=== PATIENT | female | born 1930 | race Two or more races ===

== ENCOUNTER 2016-11-26 10:14 | Emergency (ER) | payer MEDICARE, OTHER ==
[~2016-11-26] VITALS: Ht 162.6 cm; Wt 63.5 kg
--- NOTE | 2016-11-26 10:09 | Emergency Room Report ---
History of Present Illness General Source: Patient, EMS Present Illness HPI Patient is a 85-year-old female who presented after being found on the floor at her residential. Patient was noted to have a laceration to her face. History is limited by patient's poor historian. The patient noted be taking Coumadin. Allergies: Coded Allergies: No Known Allergies (Unverified , 11/26/16) Patient History Reviewed Nursing Documentation: PMH: Agreed, PSxH: Agreed Procedures Laceration/Wound Repair Laceration/Wound Repair : Wound Location: face Wound's Depth, Shape: superficial Wound Length (cm): 2 Wound Explored: clean Irrigated w/ Saline (ccs): 100 Anesthesia: Lidocaine w/ Epi Wound Debrided: minimal Wound Repaired With: sutures Suture Size/Type: 5:0 - gut suture Number of Sutures: 4 Patient Tolerated: Well Complications: None Medical Decision Making Diagnostic Impression: Primary Impression: Laceration Additional Impressions: Fall Dementia Cervical arthritis ER Course Patient presented after a fall.Differential diagnosis included was not limited to neck fracture, CVA, close head injury, syncopal episode, basilar ischemia. Because of complexity of patient's case laboratory testing and imaging studies were ordered. Laboratory testing showed coagulopathy consistent patient's anticoagulation. Patient was given lidocaine with epi for suture. The wound was closed with absorbable suture.Patient was discharged back to residential. Nursing staff were advised her return precautions. The patient was transferred home by ambulance. CT imaging of the cervical spine show degenerative changes without evident fracture. A CT of the head read by radiologist showed no acute evidence of intracranial hemorrhage or fracture. Laboratory Tests Test 11/26/16 11:15 White Blood Count 6.3 K/UL (4.8-10.8) Red Blood Count 4.29 M/UL (4.20-5.40) Hemoglobin 12.9 G/DL (12.0-16.0) Hematocrit 38.5 % (37.0-47.0) Mean Corpuscular Volume 90 FL (80-99) Mean Corpuscular Hemoglobin 30.1 PG (27.0-31.0) Mean Corpuscular Hemoglobin Concent 33.6 G/DL (32.0-36.0) Red Cell Distribution Width 10.6 % (11.6-14.8) L Platelet Count 240 K/UL (150-450) Mean Platelet Volume 8.4 FL (6.5-10.1) Neutrophils (%) (Auto) 55.8 % (45.0-75.0) Lymphocytes (%) (Auto) 34.7 % (20.0-45.0) Monocytes (%) (Auto) 7.6 % (1.0-10.0) Eosinophils (%) (Auto) 0.8 % (0.0-3.0) Basophils (%) (Auto) 1.1 % (0.0-2.0) Prothrombin Time 18.5 SEC (9.30-11.50) H Prothrombin Time INR 1.8 (0.9-1.1) H PTT 31 SEC (23-33) Sodium Level 134 mEQ/L (135-145) L Potassium Level 4.2 mEQ/L (3.4-4.9) Chloride Level 95 mEQ/L (98-107) L Carbon Dioxide Level 27 mEQ/L (20-30) Anion Gap 12 (5-15) Blood Urea Nitrogen 12 mg/dL (7-23) Creatinine 0.8 mg/dL (0.5-0.9) Estimate Glomerular Filtration Rate mL/min (>60) Glucose Level 99 mg/dL (74-106) Calcium Level 9.6 mg/dL (8.6-10.2) Total Bilirubin 0.4 mg/dL (0.0-1.2) Aspartate Amino Transferase (AST) 18 U/L (5-40) Alanine Aminotransferase (ALT) 10 U/L (3-33) Alkaline Phosphatase 105 U/L (35-104) H Total Protein 7.0 g/dL (6.6-8.7) Albumin 3.7 g/dL (3.5-5.2) Globulin 3.3 g/dL Albumin/Globulin Ratio 1.1 (1.0-2.7) Status: improved Disposition: XFER SNF Condition: Stable Roderick Calloway Nov 26, 2016 10:09
[2016-11-26 10:15] VITALS: BP 148/68
[2016-11-26] MEDS ORDERED: LEXAPRO10 MG ORAL (10:18)
[2016-11-26] MEDS ORDERED: LEVOTHYROXINE50 MCG ORAL (10:18)
[2016-11-26] MEDS ORDERED: COUMADIN6 MG ORAL (10:18)
[2016-11-26] MEDS ORDERED: MULTIVITAMINS1 EAC8 ORAL (10:18)
[2016-11-26] MEDS ORDERED: MIRALAX17 G2 ORAL (10:21)
[2016-11-26] MEDS ORDERED: PROHEAL ORAL (10:21)
[2016-11-26] MEDS ORDERED: NIFEDIPINE ER30 M2 ORAL (10:21)
[2016-11-26] MEDS ORDERED: TYLENOL650 MG/20. ORAL (10:23)
[2016-11-26] MEDS ORDERED: ZOLPIDEM TARTRAT5 MG ORAL (10:23)
[2016-11-26] MEDS ORDERED: Lidocaine 1% 10mg/ml/Epi 0.005mg/ml 30ml vial INJ ONE (10:27)
[2016-11-26] MEDS ORDERED: Bacitracin Oint UD TOPIC ONE ×2 (11:06→13:00)
[2016-11-26] MEDS ORDERED: TdaP Vaccine 0.5ml Syr IM ONE ×2 (11:07→13:00)
[2016-11-26 11:30] LABS: BASOPHILS % (AUTO) 1.1 % (0.0-2.0); EOSINOPHILS % (AUTO) 0.8 % (0.0-3.0); LYMPHOCYTES % (AUTO) 34.7 % (20.0-45.0); MEAN CORPUSCULAR HEMOGLOBIN 30.1 PG (27.0-31.0); MEAN CORPUSCULAR HGB CONC 33.6 G/DL (32.0-36.0); MEAN CORPUSCULAR VOLUME 90 FL (80-99); MEAN PLATELET VOLUME 8.4 FL (6.5-10.1); MONOCYTES % (AUTO) 7.6 % (1.0-10.0); NEUTROPHILS % (AUTO) 55.8 % (45.0-75.0); PLATELET COUNT 240 K/UL (150-450); RED BLOOD COUNT 4.29 M/UL (4.20-5.40); RED CELL DISTRIBUTION WIDTH 10.6 % (11.6-14.8); WHITE BLOOD COUNT 6.3 K/UL (4.8-10.8)
[2016-11-26 11:36] LABS: INR 1.8 (0.9-1.1); PROTHROMBIN TIME 18.5 SEC (9.30-11.50)
--- NOTE | 2016-11-26 11:36 | Diagnostic Imaging Report ---
Indications: Fall, head trauma, pain Technique: Continuous helical CT imaging of the brain was performed with nonionic exposure control on a Siemens sensation [address] scanner. Axial and coronal images were reconstructed at 5 mm slice thickness and interval. CTDI volume(s): 70, 13 mGy Total DLP: 1528 mGy-cm (Includes CT cervical spine) Findings: Comparison: None Confluent low attenuation is present in the bilateral periventricular deep cerebral white matter. Ventricles, cisterns, and sulci are diffusely prominent. No evidence of mass or hemorrhage, mass effect, midline shift, hydrocephalus, or increased intracranial pressure. Bone window images are unremarkable. Visualized paranasal sinuses and mastoid air cells are clear. IMPRESSION: No evidence of acute injury or other acute intracranial pathology . Chronic changes as described. Atrophy with ventriculomegaly. An element of normal pressure hydrocephalus should be considered. The CT scanner at [facility] is accredited by the [employer] and the scans are performed using protocols designed to limit radiation exposure to as low as reasonably achievable to attain images of sufficient resolution adequate for diagnostic evaluation.
[2016-11-26 11:40] LABS: ALANINE AMINOTRANSFERASE 10 U/L (3-33); ALBUMIN/GLOBULIN RATIO 1.1 (1.0-2.7); ANION GAP 12 (5-15); ASPARTATE AMINO TRANSFERASE 18 U/L (5-40); CALCIUM 9.6 mg/dL (8.6-10.2); CARBON DIOXIDE 27 mEQ/L (20-30); CHLORIDE 95 mEQ/L (98-107); CREATININE 0.8 mg/dL (0.5-0.9); HEMOLYSIS 4; POTASSIUM 4.2 mEQ/L (3.4-4.9); SODIUM 134 mEQ/L (135-145)
[2016-11-26] MEDS ORDERED: Lidocaine 1% 10mg/ml/EPI 0.01mg/ml 50ml INJ ONE (13:00)
[2016-11-26 13:04] VITALS: BP 156/89
--- NOTE | 2016-11-26 13:42 | Diagnostic Imaging Report ---
Indications: Fall, left forearm injury, pain Technique: 2 views left forearm. Findings: Comparison: None No fracture, dislocation, joint space widening , surrounding soft tissue swelling/foreign body/other abnormality, or other acute changes are identified. IMPRESSION: No evidence of acute injury to left forearm.
--- NOTE | 2016-11-26 13:43 | Diagnostic Imaging Report ---
Indications: Fall, neck injury, pain Technique: Continuous helical CT imaging of the cervical spine performed with automatic exposure was on a Siemens sensation [address] scanner. Axial, coronal and sagittal images reconstructed at 3 mm slice thicknesses. CTDI volume(s): 70, 13 mGy Total DLP: 1528 mGy-cm (Includes CT head) Findings: Comparison: None. Lordotic curvature is straightened. Several millimeter anterior subluxations of C3 on C4, C4 and C5, C6 and C7, and C7 on T1..Remainder of vertebral alignment is intact. No fracture, facet subluxation or dislocation, prevertebral soft tissue swelling, or other acute changes are demonstrated. Multilevel disc space narrowing with marginal osteophyte formation, facet sclerosis and hypertrophy. No obvious significant spinal stenosis results. Retro-odontoid soft tissues are prominent. Focal erosion aspect of odontoid tip. IMPRESSION: Straightening of cervical lordosis. This may be secondary to degenerative changes, positioning and/or muscular spasm. No other evidence of acute cervical injury. Multilevel degenerative spondylosis Multilevel grade 1 anterospondylolisthesis, likely chronic degenerative in nature. Lateral flexion and extension radiographs may be obtained to ascertain stability, as clinically indicated Odontoid/retro-odontoid findings described may represent underlying inflammatory arthritis The CT scanner at [facility] is accredited by the [employer] and the scans are performed using protocols designed to limit radiation exposure to as low as reasonably achievable to attain images of sufficient resolution adequate for diagnostic evaluation.
== END 2016-11-26 13:13 ==
LOC: EDBD 10:14 → EMR 10:43
DX: S01.81XA Laceration without foreign body of other part of head, initial encounter (principal); F03.90 Unspecified dementia, unspecified severity, without behavioral disturbance, psychotic disturbance, mood disturbance, and anxiety; M13.88 Other specified arthritis, other site; Z79.01 Long term (current) use of anticoagulants; Z23 Encounter for immunization; X58.XXXA Exposure to other specified factors, initial encounter; Y92.129 Unspecified place in nursing home as the place of occurrence of the external cause; Y99.8 Other external cause status
CPT/HCPCS: 36415; 70450; 72125; 80053; 85025; 85610; 85730; 90471; 90715

== ENCOUNTER 2017-06-27 13:58 | Emergency (ER) | payer MEDICARE, OTHER ==
[~2017-06-27] VITALS: Ht 154.9 cm; Wt 59.0 kg
[~2017-06-27 13:58] MED LIST: COUMADIN6 MG ORAL; LEVOTHYROXINE50 MCG ORAL; LEXAPRO10 MG ORAL; MIRALAX17 G2 ORAL; MULTIVITAMINS1 EAC8 ORAL; NIFEDIPINE ER30 M2 ORAL; PROHEAL ORAL; TYLENOL650 MG/20. ORAL; ZOLPIDEM TARTRAT5 MG ORAL
[2017-06-27 14:06] VITALS: BP 130/61
--- NOTE | 2017-06-27 14:35 | Emergency Room Report ---
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 SNF placed pressure dressing. Patient is not contributing to HPI - EMS states she is at baseline mental status. History of Dementia. No other info from patient, family, EMS, SNF. Allergies: Coded Allergies: No Known Allergies (Unverified , 11/26/16) Patient History Past Medical History: see triage record, old chart reviewed Past Surgical History: unable to obtain Pertinent Family History: unable to obtain Social History: Denies: smoking, alcohol use, drug use Last Menstrual Period: na Now: No Immunizations: UTD Reviewed Nursing Documentation: PMH: Agreed, PSxH: Agreed Nursing Documentation-PMH Past Medical History: No History, Except For Hx Hypertension: Yes Hx Gastrointestinal Problems: Yes - dysphagia History Of Psychiatric Problem: Yes - dementia Hx Neurological Problems: Yes - difficulty in walking, muscle weakness Review of Systems All Other Systems: negative except mentioned in HPI Physical Exam Vital Signs Date Time Temp Pulse Resp B/P (MAP) Pulse Ox O2 Delivery O2 Flow Rate FiO2 06/27/17 13:56 97.2 61 20 117/62 99 Room Air Sp02 EP Interpretation: reviewed, normal General Appearance: normal inspection, well appearing, no apparent distress, alert, GCS 15, non-toxic Head: normocephalic, atraumatic Eyes: bilateral eye PERRL, bilateral eye EOMI ENT: normal ENT inspection, hearing grossly normal, normal voice Neck: normal inspection, full range of motion, supple, no bony tend Respiratory: normal inspection, lungs clear, normal breath sounds, no respiratory distress, no retraction, no wheezing Cardiovascular #1: regular rate, rhythm, no edema Gastrointestinal: normal inspection, normal bowel sounds, non tender, soft, no guarding, no hernia Genitourinary: no CVA tenderness Musculoskeletal: normal inspection, back normal, normal range of motion, Yonatan' s Sign negative Neurologic: normal inspection, alert, oriented x3, responsive, water resource engineering specialist III-XII nml as tested, motor strength/tone normal, speech normal Psychiatric: normal inspection, judgement/insight normal, mood/affect normal Skin: normal inspection, normal color, no rash, other - Left anterior lower leg : Bandage removed. Minor skin tear. Steri strips in place. No active bleeding. No sign of infection. Medical Decision Making Diagnostic Impression: Primary Impression: Skin tear ER Course 86YOF sent from for eval of skin tear VSS. Afebrile Patient asymptomatic Wound examined, no active bleeding. No infection Well controlled by SNF placed bandage Patient has elevated INR d/t Coumadin - would be of patient's detriment to reverse INR now given that bleeding is controlled. Looks like she is on Coumadin for history of DVT/PE. Is more important for patient to maintain elevated INR to prevent PE than reverse it at this time Informed Dr Amador at 235pm that patient going back to No other acute issues in ED Last Vital Signs Date Time Temp Pulse Resp B/P (MAP) Pulse Ox O2 Delivery O2 Flow Rate FiO2 06/27/17 14:06 97.2 18 130/61 100 Room Air 06/27/17 13:56 61 Status: improved Disposition: ER Condition: Improved Patient Instructions: Skin Tear Care, [id number] Additional Instructions: - Wound/bleeding is controlled - Keep pressure bandage on - Dr Amador informed patient coming back to BRENNON HERNANDEZ M.D. Jun 27, 2017 14:35
[2017-06-27 15:05] VITALS: BP 139/73
== END 2017-06-27 15:05 ==
LOC: EDBD 13:58 → EMR 14:10
DX: S81.812A Laceration without foreign body, left lower leg, initial encounter (principal); X58.XXXA Exposure to other specified factors, initial encounter; Y92.129 Unspecified place in nursing home as the place of occurrence of the external cause; Z86.718 Personal history of other venous thrombosis and embolism; Z79.01 Long term (current) use of anticoagulants; Z86.711 Personal history of pulmonary embolism; I10 Essential (primary) hypertension; F03.90 Unspecified dementia, unspecified severity, without behavioral disturbance, psychotic disturbance, mood disturbance, and anxiety
CPT/HCPCS: 99282

== ENCOUNTER 2017-11-02 12:32 | Inpatient (IN) | payer OTHER, MEDICARE ==
[~2017-11-02] VITALS: Ht 162.6 cm; Wt 63.5 kg
[~2017-11-02 12:32] MED LIST changes: +AFEDITAB CR30 MG ORAL; +HYDROCHLOROTH12.5 MG ORAL; +NAPROXEN375 M2 ORAL; +TEMAZEPAM30 MG ORAL; +XANAX0.25 MG ORAL
[2017-11-02 14:09] VITALS: BP 145/66
--- NOTE | 2017-11-02 14:18 | Diagnostic Imaging Report ---
Indication: Reason For Exam: ALOC Technique: spiral acquisitions obtained through the brain. Angled axial and coronal 5 x 5 mm slices were reconstructed. No IV contrast utilized. Radiation dose was minimized using automated exposure control Total dose length product 1386.09 mGycm. CTDIvol(s) 70.38 mGy Comparison: 11/26/2016 FINDINGS: No acute hemorrhage or edema. No mass effect or midline shift. There is age-related enlargement of the ventricles and extra axial CSF spaces. There is periventricular deep white matter ischemic change. Normal marshall-white differentiation. Visualized orbits are unremarkable. Visualized sinuses are unremarkable. Intact calvarium. Findings are unchanged IMPRESSION: Chronic and age-related changes. Negative for acute intracranial bleed or mass effect The CT scanner at [facility] is accredited by the [employer] and the scans are performed using protocols designed to limit radiation exposure to as low as reasonably achievable to attain images of sufficient resolution adequate for diagnostic evaluation
[2017-11-02 15:00] LABS: BASOPHILS % (AUTO) 0.8 % (0.0-2.0); EOSINOPHILS % (AUTO) 1.8 % (0.0-3.0); HEMATOCRIT 36.2 % (37.0-47.0); HEMOGLOBIN 12.3 G/DL (12.0-16.0); MEAN CORPUSCULAR VOLUME 89 FL (80-99); MONOCYTES % (AUTO) 5.9 % (1.0-10.0); NEUTROPHILS % (AUTO) 55.6 % (45.0-75.0); PLATELET COUNT 301 K/UL (150-450); RED BLOOD COUNT 4.05 M/UL (4.20-5.40); RED CELL DISTRIBUTION WIDTH 10.9 % (11.6-14.8); WHITE BLOOD COUNT 6.7 K/UL (4.8-10.8)
[2017-11-02 15:11] LABS: ANION GAP 7 mmol/L (5-15); BLOOD UREA NITROGEN 9 mg/dL (7-18); CALCIUM 9.4 MG/DL (8.5-10.1); CARBON DIOXIDE 26 MMOL/L (21-32); CHLORIDE 102 MMOL/L (98-107); CREATININE 0.7 MG/DL (0.55-1.30); POTASSIUM 4.1 MMOL/L (3.5-5.1); SODIUM 135 MMOL/L (136-145)
[2017-11-02 15:17] LABS: INR 4.1 (0.9-1.1)
--- NOTE | 2017-11-02 15:20 | Emergency Room Report ---
History of Present Illness General Chief Complaint: Generalized Weakness Source: EMS Present Illness HPI Patient sent from SNF for decreased responsiveness and weakness. No noted fever. Eating less. Usually interacts with staff, not today. BP low with EMS. No dysphagia and HTN. Patient unable to give history. DVT on comadin. Allergies: Coded Allergies: No Known Allergies (Unverified , 11/26/16) Patient History Limited by: medical condition Past Medical History: see triage record, old chart reviewed Social History Narrative Rehab [place] Reviewed Nursing Documentation: PMH: Agreed, PSxH: Agreed Nursing Documentation-PMH Hx Hypertension: Yes Hx Gastrointestinal Problems: Yes - dysphagia Hx Neurological Problems: Yes - difficulty in walking, muscle weakness Review of Systems All Other Systems: limited Physical Exam Vital Signs Date Time Temp Pulse Resp B/P (MAP) Pulse Ox O2 Delivery O2 Flow Rate FiO2 11/02/17 12:32 96.8 56 20 129/76 95 Room Air Sp02 EP Interpretation: reviewed, normal General Appearance: no apparent distress, alert, Chronically Ill Head: normocephalic Eyes: bilateral eye normal inspection, bilateral eye PERRL ENT: moist mucus membranes Neck: supple Respiratory: lungs clear, normal breath sounds Cardiovascular #1: regular rate, rhythm Cardiovascular #2: 2+ radial (R) Gastrointestinal: normal inspection, non tender, no mass, non-distended, decreased bowel sounds Musculoskeletal: back normal, normal range of motion Neurologic: responsive, other - ebulic, moves all 4, sens intact all 4 Psychiatric: depressed affect Skin: normal inspection, warm/dry Medical Decision Making Diagnostic Impression: Primary Impression: Altered mental status Qualified Codes: R40.1 - Stupor Additional Impressions: Hypothyroidism Qualified Codes: E03.9 - Hypothyroidism, unspecified UTI (urinary tract infection) Qualified Codes: N30.00 - Acute cystitis without hematuria ER Course Patient presents with weakness and somewhat depressed sensorium. Complicated patient as unable to give hx. Ddx: AMI, occult infection, electrolyte abnormality, CVA amongst others. Evaluation with EKG, CT, CXR, labs. Treatment with hydration and cardiac monitoring. EKG without injury, CXR no infiltrate, labs with pyuria. Elevated TSH. Also anticoagulated. Antibiotics begun. Able to vocalize and responds to name (improved). Admitted med Dr. Amador. Laboratory Tests Test 11/02/17 14:40 11/02/17 15:50 White Blood Count 6.7 K/UL (4.8-10.8) Red Blood Count 4.05 M/UL (4.20-5.40) L Hemoglobin 12.3 G/DL (12.0-16.0) Hematocrit 36.2 % (37.0-47.0) L Mean Corpuscular Volume 89 FL (80-99) Mean Corpuscular Hemoglobin 30.4 PG (27.0-31.0) Mean Corpuscular Hemoglobin Concent 34.0 G/DL (32.0-36.0) Red Cell Distribution Width 10.9 % (11.6-14.8) L Platelet Count 301 K/UL (150-450) Mean Platelet Volume 7.7 FL (6.5-10.1) Neutrophils (%) (Auto) 55.6 % (45.0-75.0) Lymphocytes (%) (Auto) 36.0 % (20.0-45.0) Monocytes (%) (Auto) 5.9 % (1.0-10.0) Eosinophils (%) (Auto) 1.8 % (0.0-3.0) Basophils (%) (Auto) 0.8 % (0.0-2.0) Erythrocyte Sedimentation Rate 50 MM/HR (0-42) H Prothrombin Time 43.1 SEC (9.30-11.50) H Prothrombin Time INR 4.1 (0.9-1.1) H PTT 50 SEC (23-33) H Sodium Level 135 MMOL/L (136-145) L Potassium Level 4.1 MMOL/L (3.5-5.1) Chloride Level 102 MMOL/L (98-107) Carbon Dioxide Level 26 MMOL/L (21-32) Anion Gap 7 mmol/L (5-15) Blood Urea Nitrogen 9 mg/dL (7-18) Creatinine 0.7 MG/DL (0.55-1.30) Estimate Glomerular Filtration Rate mL/min (>60) Glucose Level 94 MG/DL (74-106) Lactic Acid Level 1.10 mmol/L (0.66-2.22) Calcium Level 9.4 MG/DL (8.5-10.1) Magnesium Level 1.8 MG/DL (1.8-2.4) Total Bilirubin 0.5 MG/DL (0.2-1.0) Aspartate Amino Transferase (AST) 26 U/L (15-37) Alanine Aminotransferase (ALT) 15 U/L (12-78) Alkaline Phosphatase 128 U/L (46-116) H Total Creatine Kinase 163 U/L (26-308) Troponin I 0.006 ng/mL (0.000-0.056) Pro-B-Type Natriuretic Peptide 646 pg/mL (0-125) H Total Protein 7.2 G/DL (6.4-8.2) Albumin 2.7 G/DL (3.4-5.0) L Globulin 4.5 g/dL Albumin/Globulin Ratio 0.6 (1.0-2.7) L Lipase 80 U/L (73-393) Thyroid Stimulating Hormone (TSH) 4.736 uiU/mL (0.358-3.740) Urine Color Pale yellow Urine Appearance Slightly cloudy Urine pH 8 (4.5-8.0) Urine Specific [place] 1.010 (1.005-1.035) Urine Protein Negative (NEGATIVE) Urine Glucose (UA) Negative (NEGATIVE) Urine Ketones Negative (NEGATIVE) Urine Occult Blood 3+ (NEGATIVE) H Urine Nitrite Positive (NEGATIVE) H Urine Bilirubin Negative (NEGATIVE) Urine Urobilinogen Normal MG/DL (0.0-1.0) Urine Leukocyte Esterase 3+ (NEGATIVE) H Urine RBC 5-10 /HPF (0 - 2) H Urine WBC 15-20 /HPF (0 - 2) H Urine Squamous Epithelial Cells Few /LPF (NONE/OCC) Urine Amorphous Sediment Few /LPF (NONE) H Urine Bacteria Many /HPF (NONE) H EKG Diagnostic Results Rate: normal Rhythm: other - a fib ST Segments: no acute changes Rhythm Strip Diag. Results EP Interpretation: yes Rhythm: no PVC's, no ectopy, other - a fib Chest X-Ray Diagnostic Results Chest X-Ray Diagnostic Results : Chest X-Ray Ordered: Yes # of Views/Limited/Complete: 1 View Indication: Other EP Interpretation: Yes Interpretation: no consolidation, no effusion, no pneumothorax Impression: No acute disease Electronically Signed by: Juan Ramon Elizondo MD CT/MRI/US Diagnostic Results CT/MRI/US Diagnostic Results : Imaging Test Ordered: head Impression age related changes Last Vital Signs Date Time Temp Pulse Resp B/P (MAP) Pulse Ox O2 Delivery O2 Flow Rate FiO2 11/02/17 23:53 97.3 65 20 177/77 97 Room Air Status: improved Disposition: ADMITTED INPATIENT Condition: Serious Referrals: DORA AMADOR (PCP) Juan aRmon Elizondo M.D. Nov 02, 2017 15:20
[2017-11-02 15:23] LABS: ALANINE AMINOTRANSFERASE 15 U/L (12-78); ALBUMIN 2.7 G/DL (3.4-5.0); ALBUMIN/GLOBULIN RATIO 0.6 (1.0-2.7); ALKALINE PHOSPHATASE 128 U/L (46-116); ASPARTATE AMINO TRANSFERASE 26 U/L (15-37); BILIRUBIN,TOTAL 0.5 MG/DL (0.2-1.0); CREATINE KINASE 163 U/L (26-308)
[2017-11-02 15:57] VITALS: BP 138/60
[2017-11-02 16:01] LABS: APPEARANCE,URINE SLIGHTLY CLOUDY; BILIRUBIN, URINE NEGATIVE (NEGATIVE); COLOR,URINE PALE YELLOW; GLUCOSE, URINE (UA) NEGATIVE (NEGATIVE); KETONES,URINE NEGATIVE (NEGATIVE); LEUKOCYTE ESTERASE ,URINE 3+ (NEGATIVE); NITRITE,URINE POSITIVE (NEGATIVE); PH,URINE 8 (4.5-8.0); PROTEIN,URINE NEGATIVE (NEGATIVE); UROBILINOGEN,URINE NORMAL MG/DL (0.0-1.0)
--- NOTE | 2017-11-02 16:11 | Diagnostic Imaging Report ---
Indication: Shortness of breath Technique: One view of the chest Comparison: none Findings: Body habitus somewhat limits evaluation. The heart is borderline enlarged. Thoracic aorta is tortuous and somewhat ectatic and calcified. The lungs and pleural spaces are clear. Impression: Borderline cardiomegaly. No definite acute process
[2017-11-02] MEDS ORDERED: cefTRIAXone 1 GM in D5W 55 ML IVPB ONE (16:30)
--- NOTE | 2017-11-02 17:50 | History and Physical ---
History of Present Illness General Date patient seen: Nov 02, 2017 Reason for Hospitalization: Generalized Weakness Present Illness HPI 86 year old female with hx of dementia, HTN, DVt on coumadin was sent from SNF for decreased responsiveness and weakness. Pt has been eating less than usual. Usually interacts with staff, not today. Pts BP low with EMS. No dysphagia and HTN. Patient unable to give history. Pt is awake, but doens't seem to understand english either. Allergies: Coded Allergies: No Known Allergies (Unverified , 11/26/16) Medication History Scheduled Alprazolam* (Xanax*), 0.25 MG ORAL DAILY, (Reported) Escitalopram Oxalate* (Lexapro*), 5 MG ORAL DAILY, (Reported) Escitalopram Oxalate* (Lexapro*), 5 MG ORAL DAILY, (Reported) Hydrochlorothiazide* (Hydrochlorothiazide*), 12.5 MG ORAL DAILY, (Reported) Levothyroxine Sodium* (Levothyroxine Sodium*), 50 MCG ORAL DAILY, (Reported) Levothyroxine Sodium* (Levothyroxine Sodium*), 50 MCG ORAL DAILY, (Reported) Multivitamin With Minerals (Multivitamins With Minerals*), 1 TAB ORAL DAILY, ( Reported) Naproxen* (Naproxen*), 375 MG ORAL TWICE A DAY, (Reported) Nifedipine Er* (Nifedipine Er*), 30 MG ORAL DAILY, (Reported) Nifedipine Er* (Nifedipine Er*), 30 MG ORAL DAILY, (Reported) Nifedipine* (Afeditab Cr*), 30 MG ORAL DAILY, (Reported) Warfarin Sod* (Coumadin*), 4 MG ORAL DAILY, (Reported) [Proheal Liquid], 30 ML ORAL TID, (Reported) Scheduled PRN Acetaminophen (Acetaminophen), 650 MG ORAL Q4HR PRN for Prn Headache/Temp > 101, (Reported) Polyethylene Glycol 3350* (Miralax*), 17 GM ORAL DAILY PRN for Constipation, ( Reported) Temazepam* (Temazepam*), 30 MG ORAL BEDTIME PRN for Insomnia, (Reported) Zolpidem Tartrate* (Zolpidem Tartrate*), 5 MG ORAL BEDTIME PRN for Insomnia, ( Reported) Patient History Healthcare decision maker Resuscitation status Advanced Directive on File Past Medical/Surgical History Past Medical/Surgical History: (1) Dementia (2) Hypothyroidism Review of Systems All Other Systems: negative except mentioned in HPI Physical Exam General Appearance: cachetic Lines, tubes and drains: peripheral HEENT: normocephalic, atraumatic Neck: non-tender, normal alignment Respiratory/Chest: chest wall non-tender, lungs clear Cardiovascular/Chest: normal peripheral pulses, normal rate Abdomen: normal bowel sounds, soft Genitourinary/Rectal: normal rectal exam, normal prostate exam Last 24 Hour Vital Signs Date Time Temp Pulse Resp B/P (MAP) Pulse Ox O2 Delivery O2 Flow Rate FiO2 11/02/17 15:57 97.6 72 16 138/60 99 Room Air 11/02/17 14:09 64 14 145/66 98 Room Air 11/02/17 12:32 96.8 56 20 129/76 95 Room Air Laboratory Tests Test 11/02/17 14:40 11/02/17 15:50 White Blood Count 6.7 K/UL (4.8-10.8) Red Blood Count 4.05 M/UL (4.20-5.40) L Hemoglobin 12.3 G/DL (12.0-16.0) Hematocrit 36.2 % (37.0-47.0) L Mean Corpuscular Volume 89 FL (80-99) Mean Corpuscular Hemoglobin 30.4 PG (27.0-31.0) Mean Corpuscular Hemoglobin Concent 34.0 G/DL (32.0-36.0) Red Cell Distribution Width 10.9 % (11.6-14.8) L Platelet Count 301 K/UL (150-450) Mean Platelet Volume 7.7 FL (6.5-10.1) Neutrophils (%) (Auto) 55.6 % (45.0-75.0) Lymphocytes (%) (Auto) 36.0 % (20.0-45.0) Monocytes (%) (Auto) 5.9 % (1.0-10.0) Eosinophils (%) (Auto) 1.8 % (0.0-3.0) Basophils (%) (Auto) 0.8 % (0.0-2.0) Erythrocyte Sedimentation Rate 50 MM/HR (0-42) H Prothrombin Time 43.1 SEC (9.30-11.50) H Prothromb Time International Ratio 4.1 (0.9-1.1) H Activated Partial Thromboplast Time 50 SEC (23-33) H Sodium Level 135 MMOL/L (136-145) L Potassium Level 4.1 MMOL/L (3.5-5.1) Chloride Level 102 MMOL/L (98-107) Carbon Dioxide Level 26 MMOL/L (21-32) Anion Gap 7 mmol/L (5-15) Blood Urea Nitrogen 9 mg/dL (7-18) Creatinine 0.7 MG/DL (0.55-1.30) Estimat Glomerular Filtration Rate mL/min (>60) Glucose Level 94 MG/DL (74-106) Lactic Acid Level 1.10 mmol/L (0.66-2.22) Calcium Level 9.4 MG/DL (8.5-10.1) Magnesium Level 1.8 MG/DL (1.8-2.4) Total Bilirubin 0.5 MG/DL (0.2-1.0) Aspartate Amino Transf (AST/SGOT) 26 U/L (15-37) Alanine Aminotransferase (ALT/SGPT) 15 U/L (12-78) Alkaline Phosphatase 128 U/L (46-116) H Total Creatine Kinase 163 U/L (26-308) Troponin I 0.006 ng/mL (0.000-0.056) Pro-B-Type Natriuretic Peptide 646 pg/mL (0-125) H Total Protein 7.2 G/DL (6.4-8.2) Albumin 2.7 G/DL (3.4-5.0) L Globulin 4.5 g/dL Albumin/Globulin Ratio 0.6 (1.0-2.7) L Lipase 80 U/L (73-393) Thyroid Stimulating Hormone (TSH) 4.736 uiU/mL (0.358-3.740) Urine Color Pale yellow Urine Appearance Slightly cloudy Urine pH 8 (4.5-8.0) Urine Specific [place] 1.010 (1.005-1.035) Urine Protein Negative (NEGATIVE) Urine Glucose (UA) Negative (NEGATIVE) Urine Ketones Negative (NEGATIVE) Urine Occult Blood 3+ (NEGATIVE) H Urine Nitrite Positive (NEGATIVE) H Urine Bilirubin Negative (NEGATIVE) Urine Urobilinogen Normal MG/DL (0.0-1.0) Urine Leukocyte Esterase 3+ (NEGATIVE) H Urine RBC 5-10 /HPF (0 - 2) H Urine WBC 15-20 /HPF (0 - 2) H Urine Squamous Epithelial Cells Few /LPF (NONE/OCC) Urine Amorphous Sediment Few /LPF (NONE) H Urine Bacteria Many /HPF (NONE) H Height (Feet): 5 Height (Inches): 4.00 Weight (Pounds): 150 Medications Current Medications Medications (Trade) Dose Ordered Sig/Kalen Route PRN Reason Start Time Stop Time Status Last Admin Dose Admin Sodium Chloride 1,000 ml @ 300 mls/hr Q3H20M IV 11/02/17 13:15 12/02/17 13:14 11/02/17 16:25 Assessment/Plan Problem List: (1) Altered mental status ICD Codes: R41.82 - Altered mental status, unspecified SNOMED: 700786847 Qualifiers: Qualified Codes: R40.1 - Stupor (2) UTI (urinary tract infection) ICD Codes: N39.0 - Urinary tract infection, site not specified SNOMED: 50549082 Qualifiers: Qualified Codes: N30.00 - Acute cystitis without hematuria (3) Dementia ICD Codes: F03.90 - Unspecified dementia without behavioral disturbance SNOMED: 52226337 (4) History of DVT (deep vein thrombosis) ICD Codes: Z86.718 - Personal history of other venous thrombosis and embolism SNOMED: 901159818 (5) Hypothyroidism ICD Codes: E03.9 - Hypothyroidism, unspecified SNOMED: [id number] Qualifiers: Qualified Codes: E03.9 - Hypothyroidism, unspecified Assessment/Plan iv abx swallow study check cultures f/u inr coumadin by pharmacy DORA VENTURA Nov 02, 2017 17:50
[2017-11-02 18:00] VITALS: BP 128/92
[2017-11-02] MEDS ORDERED: Morphine Sulfate 2mg/ml Inj IVP PRN (18:00)
[2017-11-02] MEDS: D5 1/2NS 1,000 ML IV SCH (18:28)
[2017-11-02 20:00] VITALS: BP 133/96
[2017-11-02] MEDS ORDERED: Zolpidem 5mg tab ORAL PRN (21:00)
[2017-11-02] MEDS ORDERED: Heparin 5000 units/ml inj SUBQ SCH (21:00)
[2017-11-02 23:53] VITALS: BP 177/77
[2017-11-03 04:00] VITALS: BP 133/71
--- NOTE | 2017-11-03 06:31 | Consultation ---
DATE OF CONSULTATION: 11/02/2017 HISTORY OF PRESENT ILLNESS: The patient is an 86-year-old female with a past medical history significant for underlying dementia, UTI, also confusion, acute encephalopathy, depression, anxiety, and hypothyroidism, who presented to the hospital due to generalized weakness. During the evaluation, the patient is alert, however, confused, nonverbal, has been agitated, and has been presenting with waxing and waning consciousness and is not able to be engaged during the evaluation. The patient is unable to understand, process, communicate, nor appreciate information given to the patient due to severe cognitive impairment. PAST PSYCHIATRIC HISTORY: Significant for depression, anxiety, and dementia. PAST MEDICAL HISTORY: As above. ALLERGIES: No known drug allergies. SUBSTANCE ABUSE HISTORY: No history of illicit drug use or alcohol. MENTAL STATUS EXAMINATION: The patient is alert and oriented x3 and is uncooperative and nonverbal. Mood is agitated. Affect is constricted, congruent with mood. Thought process is concrete. Thought content, no suicidal or homicidal ideation. ASSESSMENT: AXIS I: Depression, anxiety, and delirium due to general medical condition. PLAN: 1. We will continue the Lexapro 5 mg in the morning and Ativan p.r.n. 2. We will continue to follow and readjust the medications. Sebastian Steel M.D. DR: ELENA JOB#: [id number] CC:
[2017-11-03 07:08] LABS: BASOPHILS % (AUTO) 0.6 % (0.0-2.0); EOSINOPHILS % (AUTO) 1.6 % (0.0-3.0); HEMATOCRIT 32.8 % (37.0-47.0); HEMOGLOBIN 11.8 G/DL (12.0-16.0); LYMPHOCYTES % (AUTO) 27.1 % (20.0-45.0); MEAN CORPUSCULAR VOLUME 89 FL (80-99); MONOCYTES % (AUTO) 6.5 % (1.0-10.0); NEUTROPHILS % (AUTO) 64.2 % (45.0-75.0); PLATELET COUNT 287 K/UL (150-450); RED BLOOD COUNT 3.67 M/UL (4.20-5.40); RED CELL DISTRIBUTION WIDTH 10.9 % (11.6-14.8); WHITE BLOOD COUNT 5.9 K/UL (4.8-10.8)
[2017-11-03 07:31] LABS: ALANINE AMINOTRANSFERASE 15 U/L (12-78); ALBUMIN 2.5 G/DL (3.4-5.0); ALBUMIN/GLOBULIN RATIO 0.6 (1.0-2.7); ALKALINE PHOSPHATASE 115 U/L (46-116); ANION GAP 6 mmol/L (5-15); ASPARTATE AMINO TRANSFERASE 21 U/L (15-37); BILIRUBIN,TOTAL 0.5 MG/DL (0.2-1.0); BLOOD UREA NITROGEN 7 mg/dL (7-18); CALCIUM 8.9 MG/DL (8.5-10.1); CARBON DIOXIDE 27 MMOL/L (21-32); CHLORIDE 103 MMOL/L (98-107); CREATININE 0.7 MG/DL (0.55-1.30); POTASSIUM 3.8 MMOL/L (3.5-5.1); SODIUM 135 MMOL/L (136-145)
[2017-11-03 08:00] VITALS: BP 149/78
[2017-11-03 08:03] LABS: INR 3.4 (0.9-1.1)
[2017-11-03] MEDS ORDERED: Warfarin Sodium 3mg ORAL SCH (09:00)
[2017-11-03] MEDS ORDERED: Escitalopram Oxalate 5mg tab ORAL SCH (09:00)
[2017-11-03] MEDS: D5 1/2NS 1,000 ML IV SCH (12:04)
--- NOTE | 2017-11-03 12:40 | Neurology Progress Note ---
Objective Physical Exam Last Vital Signs Date Time Temp Pulse Resp B/P (MAP) Pulse Ox O2 Delivery O2 Flow Rate FiO2 11/03/17 08:43 65 150/70 11/03/17 08:00 98.0 18 97 11/03/17 04:00 Room Air Laboratory Tests Test 11/02/17 14:40 11/02/17 15:50 11/03/17 06:15 White Blood Count 6.7 K/UL (4.8-10.8) 5.9 K/UL (4.8-10.8) Red Blood Count 4.05 M/UL (4.20-5.40) L 3.67 M/UL (4.20-5.40) L Hemoglobin 12.3 G/DL (12.0-16.0) 11.8 G/DL (12.0-16.0) L Hematocrit 36.2 % (37.0-47.0) L 32.8 % (37.0-47.0) L Mean Corpuscular Volume 89 FL (80-99) 89 FL (80-99) Mean Corpuscular Hemoglobin 30.4 PG (27.0-31.0) 32.0 PG (27.0-31.0) H Mean Corpuscular Hemoglobin Concent 34.0 G/DL (32.0-36.0) 35.8 G/DL (32.0-36.0) Red Cell Distribution Width 10.9 % (11.6-14.8) L 10.9 % (11.6-14.8) L Platelet Count 301 K/UL (150-450) 287 K/UL (150-450) Mean Platelet Volume 7.7 FL (6.5-10.1) 7.7 FL (6.5-10.1) Neutrophils (%) (Auto) 55.6 % (45.0-75.0) 64.2 % (45.0-75.0) Lymphocytes (%) (Auto) 36.0 % (20.0-45.0) 27.1 % (20.0-45.0) Monocytes (%) (Auto) 5.9 % (1.0-10.0) 6.5 % (1.0-10.0) Eosinophils (%) (Auto) 1.8 % (0.0-3.0) 1.6 % (0.0-3.0) Basophils (%) (Auto) 0.8 % (0.0-2.0) 0.6 % (0.0-2.0) Erythrocyte Sedimentation Rate 50 MM/HR (0-42) H Prothrombin Time 43.1 SEC (9.30-11.50) H 36.2 SEC (9.30-11.50) H Prothromb Time International Ratio 4.1 (0.9-1.1) H 3.4 (0.9-1.1) H Activated Partial Thromboplast Time 50 SEC (23-33) H Sodium Level 135 MMOL/L (136-145) L 135 MMOL/L (136-145) L Potassium Level 4.1 MMOL/L (3.5-5.1) 3.8 MMOL/L (3.5-5.1) Chloride Level 102 MMOL/L (98-107) 103 MMOL/L (98-107) Carbon Dioxide Level 26 MMOL/L (21-32) 27 MMOL/L (21-32) Anion Gap 7 mmol/L (5-15) 6 mmol/L (5-15) Blood Urea Nitrogen 9 mg/dL (7-18) 7 mg/dL (7-18) Creatinine 0.7 MG/DL (0.55-1.30) 0.7 MG/DL (0.55-1.30) Estimat Glomerular Filtration Rate mL/min (>60) mL/min (>60) Glucose Level 94 MG/DL (74-106) 96 MG/DL (74-106) Lactic Acid Level 1.10 mmol/L (0.66-2.22) Calcium Level 9.4 MG/DL (8.5-10.1) 8.9 MG/DL (8.5-10.1) Magnesium Level 1.8 MG/DL (1.8-2.4) Total Bilirubin 0.5 MG/DL (0.2-1.0) 0.5 MG/DL (0.2-1.0) Aspartate Amino Transf (AST/SGOT) 26 U/L (15-37) 21 U/L (15-37) Alanine Aminotransferase (ALT/SGPT) 15 U/L (12-78) 15 U/L (12-78) Alkaline Phosphatase 128 U/L (46-116) H 115 U/L (46-116) Total Creatine Kinase 163 U/L (26-308) Troponin I 0.006 ng/mL (0.000-0.056) Pro-B-Type Natriuretic Peptide 646 pg/mL (0-125) H Total Protein 7.2 G/DL (6.4-8.2) 6.6 G/DL (6.4-8.2) Albumin 2.7 G/DL (3.4-5.0) L 2.5 G/DL (3.4-5.0) L Globulin 4.5 g/dL 4.1 g/dL Albumin/Globulin Ratio 0.6 (1.0-2.7) L 0.6 (1.0-2.7) L Lipase 80 U/L (73-393) Thyroid Stimulating Hormone (TSH) 4.736 uiU/mL (0.358-3.740) Urine Color Pale yellow Urine Appearance Slightly cloudy Urine pH 8 (4.5-8.0) Urine Specific [place] 1.010 (1.005-1.035) Urine Protein Negative (NEGATIVE) Urine Glucose (UA) Negative (NEGATIVE) Urine Ketones Negative (NEGATIVE) Urine Occult Blood 3+ (NEGATIVE) H Urine Nitrite Positive (NEGATIVE) H Urine Bilirubin Negative (NEGATIVE) Urine Urobilinogen Normal MG/DL (0.0-1.0) Urine Leukocyte Esterase 3+ (NEGATIVE) H Urine RBC 5-10 /HPF (0 - 2) H Urine WBC 15-20 /HPF (0 - 2) H Urine Squamous Epithelial Cells Few /LPF (NONE/OCC) Urine Amorphous Sediment Few /LPF (NONE) H Urine Bacteria Many /HPF (NONE) H Impression/Recommendations Problems: (1) Dementia arising in the senium and presenium (2) UTI (urinary tract infection) (3) Hypothyroidism Status: stable Recommendations #[id number] check need of Warfarin? avoid benzo consider DNR ZAIDA VILLAREAL Nov 03, 2017 12:40
[2017-11-03 16:44] VITALS: BP 118/71
--- NOTE | 2017-11-03 17:50 | Pulmonology Progress Note ---
Assessment/Plan Problems: (1) Altered mental status (2) UTI (urinary tract infection) (3) Dementia (4) Hypothyroidism (5) History of DVT (deep vein thrombosis) Assessment/Plan check cultures continue abx swallow study f/u labs Subjective Interval Events: awake, not communicating Allergies: Coded Allergies: No Known Allergies (Unverified , 11/26/16) Objective Last 24 Hour Vital Signs Date Time Temp Pulse Resp B/P (MAP) Pulse Ox O2 Delivery O2 Flow Rate FiO2 11/03/17 16:44 97.7 78 20 118/71 97 Room Air 11/03/17 08:43 65 150/70 11/03/17 08:00 98.0 64 18 149/78 97 11/03/17 04:00 98.0 68 20 133/71 97 Room Air 11/02/17 23:53 97.3 65 20 177/77 97 Room Air 11/02/17 20:00 96.8 88 20 133/96 97 Room Air 11/02/17 18:15 97.6 57 16 128/92 99 Room Air 11/02/17 18:00 57 16 128/92 99 Room Air Intake and Output 11/02/17 11/03/17 19:00 07:00 Intake Total 0 ml 600 ml Output Total 1400 ml Balance 0 ml -800 ml Intake Oral 0 ml IV Total 600 ml Output Urine Total 1400 ml Objective General Appearance: cachetic Lines, tubes and drains: peripheral HEENT: normocephalic, atraumatic Neck: non-tender, normal alignment Respiratory/Chest: chest wall non-tender, lungs clear Cardiovascular/Chest: normal peripheral pulses, normal rate Abdomen: normal bowel sounds, soft Genitourinary/Rectal: normal rectal exam, normal prostate exam General Appearance: cachetic Microbiology Date/Time Source Procedure Growth Status 11/02/17 15:50 Urine,Clean Catch Urine Culture - Preliminary Gram Negative Bacillus 1 Resulted Laboratory Tests 11/03/17 06:15: White Blood Count 5.9, Red Blood Count 3.67L, Hemoglobin 11.8L, Hematocrit 32.8L , Mean Corpuscular Volume 89, Mean Corpuscular Hemoglobin 32.0H, Mean Corpuscular Hemoglobin Concent 35.8, Red Cell Distribution Width 10.9L, Platelet Count 287, Mean Platelet Volume 7.7, Neutrophils (%) (Auto) 64.2, Lymphocytes (%) (Auto) 27.1, Monocytes (%) (Auto) 6.5, Eosinophils (%) (Auto) 1.6, Basophils (%) (Auto) 0.6, Prothrombin Time 36.2H, Prothromb Time International Ratio 3.4H, Sodium Level 135L, Potassium Level 3.8, Chloride Level 103, Carbon Dioxide Level 27, Anion Gap 6, Blood Urea Nitrogen 7, Creatinine 0.7, Estimat Glomerular Filtration Rate , Glucose Level 96, Calcium Level 8.9, Total Bilirubin 0.5, Aspartate Amino Transf (AST/SGOT) 21, Alanine Aminotransferase (ALT/SGPT) 15, Alkaline Phosphatase 115, Total Protein 6.6, Albumin 2.5L, Globulin 4.1, Albumin/Globulin Ratio 0.6L Current Medications Medications (Trade) Dose Ordered Sig/Klaen Route PRN Reason Start Time Stop Time Status Last Admin Dose Admin Clonidine HCl (Catapres Tab) 0.1 mg Q6H PRN ORAL For High Blood Pressure 11/03/17 07:15 12/03/17 07:14 Dextrose (Dextrose 50%) STAT PRN IV Hypoglycemia 11/02/17 18:00 12/02/17 17:59 Dextrose/Sodium Chloride 1,000 ml @ 50 mls/hr Q20H IV 11/02/17 18:00 12/02/17 17:59 11/02/17 18:28 Escitalopram Oxalate (Lexapro) 10 mg DAILY ORAL 11/04/17 09:00 12/04/17 08:59 Levothyroxine Sodium (Synthroid) 50 mcg ACBREAKFAST ORAL 11/03/17 06:30 12/03/17 06:29 11/03/17 06:07 Lorazepam (Ativan 2mg/ml 1ml) 0.5 mg Q4H PRN IV For Anxiety 11/02/17 18:00 11/09/17 17:59 Morphine Sulfate (Morphine Sulfate) 1 mg Q4H PRN IVP PAIN 4-10 11/02/17 18:00 11/09/17 17:59 Nifedipine (Procardia XL) 30 mg DAILY ORAL 11/03/17 09:00 12/03/17 08:59 11/03/17 08:43 Ondansetron HCl (Zofran) 4 mg Q6H PRN IVP Nausea & Vomiting 11/02/17 18:00 12/02/17 17:59 Warfarin Sodium (Coumadin per pharmacy) 1 ea DAILY PRN MISC . 11/02/17 18:15 12/02/17 18:14 Zolpidem Tartrate (Ambien) 5 mg HSPRN PRN ORAL Insomnia 11/02/17 21:00 11/09/17 20:59 DORA VENTURA Nov 03, 2017 17:50
[2017-11-03 20:00] VITALS: BP 127/73
--- NOTE | 2017-11-03 20:00 | Progress Note ---
DATE: 11/03/2017 SUBJECTIVE: The patient is presenting with weakness, , in bed, and has been staying out her medication. She can get agitated. Has poor insight and judgment. MENTAL STATUS EXAMINATION: The patient is alert and oriented x0. Mood is anxious. Affect is constricted. Congruent with mood. Thought process is concrete. Thought content, no suicidal or homicidal ideations. Delusional. Insight and judgment is impaired. ASSESSMENT: 1. Agitation. 2. Encephalopathy. PLAN: We will continue current medications. Sebastian Steel M.D. DR: ELENA JOB#: [id number] CC:
--- NOTE | 2017-11-03 20:15 | Consultation ---
DATE OF CONSULTATION: 11/03/2017 NEUROLOGICAL CONSULTATION REQUESTING PHYSICIAN: Jessica Amador M.D. HISTORY OF PRESENT ILLNESS: This 86-year-old female, resident of a nursing facility was brought to this hospital with evidence of decreased responsiveness, generalized weakness, reduced food intake, being unable to interact with staff, and evidence of hypotension noted by paramedics. The patient on arrival, vital signs were stable, blood pressure 129/76 and temperature 96.8 degrees. The patient has no evidence of apparent distress. She was alert, chronically ill appearing, able to move arms and legs. Her initial diagnostic studies included CAT scan of the brain without contrast this revealed chronic and age-related changes, but no evidence of acute abnormalities. Chest x-ray, borderline cardiomegaly, no evidence of acute process. Laboratory work included elevated sedimentation rate of 50, mild anemia, hemoglobin 11.9 and hematocrit 32.8. Urinalysis with 15-20 WBCs, 3+ leukocyte esterase and chemistry panel with elevated TSH 4.736, alkaline phosphatase is 128. Albumin down to 2.7 and sodium 135, otherwise unremarkable. Coagulation panel was significant coagulopathy, INR of 4.1 and PT of 43.1. Following admission, the patient remained on warfarin, Zofran, nifedipine, morphine p.r.n., clonazepam p.r.n., levothyroxine, Lexapro, clonidine and IV fluids. PAST MEDICAL HISTORY: According to the family who was present during this examination, the patient has evidence of severe dementia for at least last four years, she is nonverbal, does not recognize the family, does not interact. She is awake, at times aggressive, but she has a good appetite. She remained bedridden, tends to both legs flexed. Medical issues according to the record, the patient's medical issue also include degenerative joint disease, hypothyroidism, and history of DVT. MEDICATIONS: Her treatment prior to admission included Xanax daily, citalopram, hydrochlorothiazide, levothyroxine, Naprosyn, nifedipine, temazepam, warfarin and zolpidem. SOCIAL HISTORY: Resident of a rehabilitation facility. FAMILY HISTORY: Noncontributory. REVIEW OF SYSTEMS: Unable to obtain due to the patient's status, but according to the family who was currently presents, she appears " in baseline." PHYSICAL EXAMINATION: GENERAL: A well-developed and well-nourished, elderly female, awake. VITAL SIGNS: Stable, blood pressure 150/70, heart rate of 65, and temperature 98.0 degrees. HEENT: Head, normocephalic. There is no evidence of injuries. Eyes, ears, and throat are clear. NECK: Rigid in all directions. MUSCULOSKELETAL: Flexion contracture of lower extremities. Diffuse rigidity. Peripheral pulses 1+ symmetric. MENTAL STATUS: The patient is fully alert, has a good eye contact. She is nonverbal, does not follow instructions given in her [place] language and given by her family. CRANIAL NERVE II: Pupils both responding to light and accommodation. Extraocular movement full range. Fundi poorly visualized. CRANIAL NERVE V: Normal corneal responses. CRANIAL NERVE VII: No facial asymmetry. CRANIAL NERVE VIII: Grossly normal hearing. CRANIAL NERVE IX THROUGH XII: Tongue is in midline. Symmetric palate elevation. The patient reportedly able to eat without choking. MOTOR EXAMINATION: Diffuse rigidity. The patient had a strength 5/5 in both upper extremity and she was aggressive and times trying to hit using both arms. Lower extremities, flexor contracture of both knees, but able to move against resistance. Deep tendon reflexes 1+ bilaterally symmetric. Plantar response is mute. SENSORY EXAMINATION: Withdrawing to pin stimulation in all limbs. IMPRESSION: 1. Senile dementia, advanced. 2. Urinary tract infection. 3. Hypothyroidism. 4. Polypharmacy. 5. Over anticoagulation. RECOMMENDATION: 1. Hold on essential treatment. 2. Review necessity for warfarin. 3. She has enhanced risk of hemorrhagic complication. 4. Avoid use of benzodiazepine. 5. Continue with antipsychotic treatment as per Psychiatry. 6. Continue with supportive care. 7. Do Not Resuscitate as appropriate. Thank you for allowing me to see this interesting patient in neurological consultation. Galdino Swanson M.D. DR: FISH JOB#: [id number] CC:
[2017-11-04] VITALS (7 sets, daily range): BP systolic 120–165; BP diastolic 61–78
[2017-11-04 06:39] LABS: BASOPHILS % (AUTO) 0.8 % (0.0-2.0); EOSINOPHILS % (AUTO) 1.7 % (0.0-3.0); HEMATOCRIT 34.5 % (37.0-47.0); HEMOGLOBIN 12.1 G/DL (12.0-16.0); LYMPHOCYTES % (AUTO) 28.5 % (20.0-45.0); MEAN CORPUSCULAR VOLUME 89 FL (80-99); MONOCYTES % (AUTO) 7.5 % (1.0-10.0); NEUTROPHILS % (AUTO) 61.5 % (45.0-75.0); PLATELET COUNT 315 K/UL (150-450); RED BLOOD COUNT 3.87 M/UL (4.20-5.40); RED CELL DISTRIBUTION WIDTH 10.8 % (11.6-14.8); WHITE BLOOD COUNT 6.4 K/UL (4.8-10.8)
[2017-11-04 07:03] LABS: INR 2.8 (0.9-1.1)
[2017-11-04 07:06] LABS: ALANINE AMINOTRANSFERASE 14 U/L (12-78); ALBUMIN 2.6 G/DL (3.4-5.0); ALBUMIN/GLOBULIN RATIO 0.6 (1.0-2.7); ALKALINE PHOSPHATASE 116 U/L (46-116); ANION GAP 4 mmol/L (5-15); ASPARTATE AMINO TRANSFERASE 19 U/L (15-37); BILIRUBIN,TOTAL 0.7 MG/DL (0.2-1.0); BLOOD UREA NITROGEN 9 mg/dL (7-18); CALCIUM 9.4 MG/DL (8.5-10.1); CARBON DIOXIDE 26 MMOL/L (21-32); CHLORIDE 102 MMOL/L (98-107); CREATININE 0.7 MG/DL (0.55-1.30); PHOSPHORUS 2.6 MG/DL (2.5-4.9); POTASSIUM 3.7 MMOL/L (3.5-5.1); SODIUM 132 MMOL/L (136-145)
[2017-11-04] MEDS: LORazepam Inj 2mg/ml 1ml IV PRN (09:04)
[2017-11-04] MEDS: D5 1/2NS 1,000 ML IV SCH (09:14)
--- NOTE | 2017-11-04 16:12 | Pulmonology Progress Note ---
Assessment/Plan Problems: (1) Altered mental status (2) UTI (urinary tract infection) (3) Dementia (4) Hypothyroidism (5) History of DVT (deep vein thrombosis) Assessment/Plan check cultures continue abx swallow study not done, because pt is lethargic social service consult pt is appropiate for end of life and hospice care f/u labs Subjective ROS Limited/Unobtainable: No Interval Events: somnolent Allergies: Coded Allergies: No Known Allergies (Unverified , 11/26/16) Objective Last 24 Hour Vital Signs Date Time Temp Pulse Resp B/P (MAP) Pulse Ox O2 Delivery O2 Flow Rate FiO2 11/04/17 12:00 97.8 66 18 120/65 97 11/04/17 10:41 97.7 74 18 120/65 95 11/04/17 09:29 165/65 11/04/17 08:00 97.7 74 18 165/65 95 11/04/17 04:00 97.5 73 20 144/69 98 11/04/17 00:00 98.6 85 20 135/78 96 11/03/17 20:00 97.2 78 20 127/73 99 Room Air 11/03/17 16:44 97.7 78 20 118/71 97 Room Air Intake and Output 11/03/17 11/04/17 19:00 07:00 Intake Total 50 ml 350 ml Output Total 1100 ml 150 ml Balance -1050 ml 200 ml IV Total 50 ml 350 ml Output Urine Total 1100 ml 150 ml Objective General Appearance: cachetic Lines, tubes and drains: peripheral HEENT: normocephalic, atraumatic Neck: non-tender, normal alignment Respiratory/Chest: chest wall non-tender, lungs clear Cardiovascular/Chest: normal peripheral pulses, normal rate Abdomen: normal bowel sounds, soft Genitourinary/Rectal: normal rectal exam, normal prostate exam Microbiology Date/Time Source Procedure Growth Status 11/02/17 14:40 Blood Blood Culture - Preliminary NO GROWTH AFTER 24 HOURS Resulted 11/02/17 14:30 Blood Blood Culture - Preliminary NO GROWTH AFTER 24 HOURS Resulted 11/02/17 18:00 Nasal Nares Left MRSA Culture - Final Staphylococcus Aureus - Mrsa Complete 11/02/17 15:50 Urine,Clean Catch Urine Culture - Final Providencia Stuartii Complete 11/02/17 18:00 Rectum VRE Culture - Final 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 Complete Laboratory Tests 11/04/17 05:30: White Blood Count 6.4, Red Blood Count 3.87L, Hemoglobin 12.1, Hematocrit 34.5L , Mean Corpuscular Volume 89, Mean Corpuscular Hemoglobin 31.4H, Mean Corpuscular Hemoglobin Concent 35.2, Red Cell Distribution Width 10.8L, Platelet Count 315, Mean Platelet Volume 7.9, Neutrophils (%) (Auto) 61.5, Lymphocytes (%) (Auto) 28.5, Monocytes (%) (Auto) 7.5, Eosinophils (%) (Auto) 1.7, Basophils (%) (Auto) 0.8, Prothrombin Time 29.2H, Prothromb Time International Ratio 2.8H, Activated Partial Thromboplast Time 47H, Sodium Level 132L, Potassium Level 3.7, Chloride Level 102, Carbon Dioxide Level 26, Anion Gap 4L, Blood Urea Nitrogen 9, Creatinine 0.7, Estimat Glomerular Filtration Rate , Glucose Level 108H, Calcium Level 9.4, Phosphorus Level 2.6, Magnesium Level 1.6L, Total Bilirubin 0.7, Aspartate Amino Transf (AST/SGOT) 19, Alanine Aminotransferase (ALT/SGPT) 14, Alkaline Phosphatase 116, Total Protein 7.0, Albumin 2.6L, Globulin 4.4, Albumin/Globulin Ratio 0.6L Current Medications Medications (Trade) Dose Ordered Sig/Kalen Route PRN Reason Start Time Stop Time Status Last Admin Dose Admin Clonidine HCl (Catapres Tab) 0.1 mg Q6H PRN ORAL For High Blood Pressure 11/03/17 07:15 12/03/17 07:14 11/04/17 09:29 Dextrose (Dextrose 50%) STAT PRN IV Hypoglycemia 11/02/17 18:00 12/02/17 17:59 Dextrose/Sodium Chloride 1,000 ml @ 50 mls/hr Q20H IV 11/02/17 18:00 12/02/17 17:59 11/04/17 09:14 Escitalopram Oxalate (Lexapro) 10 mg DAILY ORAL 11/04/17 09:00 12/04/17 08:59 Levothyroxine Sodium (Synthroid) 50 mcg ACBREAKFAST ORAL 11/03/17 06:30 12/03/17 06:29 11/04/17 06:28 Lorazepam (Ativan 2mg/ml 1ml) 0.5 mg Q4H PRN IV For Anxiety 11/02/17 18:00 11/09/17 17:59 11/04/17 09:04 Morphine Sulfate (Morphine Sulfate) 1 mg Q4H PRN IVP PAIN 4-10 11/02/17 18:00 11/09/17 17:59 Nifedipine (Procardia XL) 30 mg DAILY ORAL 11/03/17 09:00 12/03/17 08:59 11/03/17 08:43 Ondansetron HCl (Zofran) 4 mg Q6H PRN IVP Nausea & Vomiting 11/02/17 18:00 12/02/17 17:59 Warfarin Sodium (Coumadin per pharmacy) 1 ea DAILY PRN MISC . 11/02/17 18:15 12/02/17 18:14 Warfarin Sodium (Coumadin) 1 mg COUMADIN ONCE ORAL 11/04/17 17:00 11/04/17 17:01 Zolpidem Tartrate (Ambien) 5 mg HSPRN PRN ORAL Insomnia 11/02/17 21:00 11/09/17 20:59 DORA VENTURA Nov 04, 2017 16:11
[2017-11-04] MEDS ORDERED: Warfarin Sodium 1mg ORAL ONE (17:00)
--- NOTE | 2017-11-04 19:21 | Wound Care Consultation ---
Wound Assessment Wound Assessment #1: Wound Number: 1 Wound Present on Admission: Yes New Wound: No Status Change of Wound: No Wound Location Body Site Modif: right Wound Location Body Site: toe - 1st Wound Type: pressure ulcer Julian Test: Does not Julian Pressure Ulcer Stage: Unstageable Wound Thickness: Full Thickness Wound Length: 2.5 Wound Width: 3.0 Wound Depth: utd Percent of Wound Bed Yellow/Wh: 50 Percent of Wound Black/Brown: 50 Wound Drainage Amount: None Wound Drainage Odor: None/Absent Tissue Surrounding Wound: Indurated Wound General Appearance: Reddened - yellow,maroon Wound Assessment #2: Wound Number: 2 Wound Present on Admission: Yes New Wound: No Status Change of Wound: No Wound Location Body Site Modif: right, lateral Wound Location Body Site: metatarsal head - 1st Wound Type: pressure ulcer Julian Test: Does not Julian Pressure Ulcer Stage: Deep Tissue Injury Wound Thickness: Full Thickness Wound Length: 1.0 Wound Width: 1.5 Wound Depth: utd Percent of Wound Purple/Maroon: 100 Wound Drainage Amount: None Wound Drainage Odor: None/Absent Tissue Surrounding Wound: Intact Wound General Appearance: Reddened - maroon Wound Comment #1 Right lateral and plantar 1st toe unstageable pressure ulcer #2 Right lateral 1st metatarsal head DTI pressure ulcer #3 Left thumb noted with dry scab Recommendation -Local wound care per protocol -Keep clean and dry -Optimize nutrition -Offload both heels -Heel protector on both heels -Turn and reposition -Low air loss mattress -Assess and f/u accordingly for any changes CLINT CANALES RN Nov 04, 2017 19:21
[2017-11-05] VITALS: BP 138/73
[2017-11-05 04:00] VITALS: BP 134/71
[2017-11-05] MEDS: D5 1/2NS 1,000 ML IV SCH (04:32)
--- NOTE | 2017-11-05 05:15 | Progress Note ---
DATE: 11/04/2017 SUBJECTIVE: The patient is the same. Minimally verbal. No behavioral issues. The patient is confused. MENTAL STATUS EXAMINATION: The patient is minimally verbal, alert, and anxious. Mood is neutral to anxious. Affect is flat. Thought process, there is a paucity of thought content. Thought content, no suicidal or homicidal ideation. Cognition is impaired. ASSESSMENT: 1. Generalized weakness. 2. Encephalopathy. PLAN: 1. We will continue the lorazepam. 2. We will continue the citalopram in the morning. 3. We will continue to follow and readjust the medications. Sebastian Steel M.D. DR: ELENA JOB#: [id number] CC:
[2017-11-05 08:00] VITALS: BP 145/65
[2017-11-05 08:24] LABS: INR 2.5 (0.9-1.1)
--- NOTE | 2017-11-05 11:46 | Pulmonology Progress Note ---
Assessment/Plan Problems: (1) Altered mental status (2) UTI (urinary tract infection) (3) Dementia (4) Hypothyroidism (5) History of DVT (deep vein thrombosis) Assessment/Plan check cultures continue abx swallow study not done, because pt is lethargic ( more awake now social service consult pt is appropiate for end of life and hospice care f/u labs social service to look for family members. Subjective ROS Limited/Unobtainable: No Interval Events: open eyes now Constitutional: Reports: no symptoms HEENT: Repors: no symptoms Respiratory: Reports: no symptoms Allergies: Coded Allergies: No Known Allergies (Unverified , 11/26/16) Objective Last 24 Hour Vital Signs Date Time Temp Pulse Resp B/P (MAP) Pulse Ox O2 Delivery O2 Flow Rate FiO2 11/05/17 09:53 63 145/65 11/05/17 09:32 Room Air 11/05/17 08:00 97.0 63 20 145/65 96 11/05/17 04:00 97.7 71 18 134/71 99 Room Air 11/05/17 00:00 97.8 67 18 138/73 97 Room Air 11/04/17 20:00 98.1 76 18 133/68 98 Room Air 11/04/17 16:00 97.8 68 17 126/61 11/04/17 12:00 97.8 66 18 120/65 97 Intake and Output 11/04/17 11/05/17 19:00 07:00 Intake Total 450 ml 600 ml Output Total 200 ml 300 ml Balance 250 ml 300 ml IV Total 450 ml 600 ml Output Urine Total 200 ml 300 ml Objective General Appearance: cachetic Lines, tubes and drains: peripheral HEENT: normocephalic, atraumatic Neck: non-tender, normal alignment Respiratory/Chest: chest wall non-tender, lungs clear Cardiovascular/Chest: normal peripheral pulses, normal rate Abdomen: normal bowel sounds, soft Genitourinary/Rectal: normal rectal exam, normal prostate exam Microbiology Date/Time Source Procedure Growth Status 11/02/17 14:40 Blood Blood Culture - Preliminary NO GROWTH AFTER 48 HOURS Resulted 11/02/17 14:30 Blood Blood Culture - Preliminary NO GROWTH AFTER 48 HOURS Resulted 11/02/17 18:00 Nasal Nares Left MRSA Culture - Final Staphylococcus Aureus - Mrsa Complete 11/02/17 15:50 Urine,Clean Catch Urine Culture - Final Providencia Stuartii Complete 11/02/17 18:00 Rectum VRE Culture - Final 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 Complete Laboratory Tests 11/05/17 07:15: Prothrombin Time 26.7H, Prothromb Time International Ratio 2.5H Current Medications Medications (Trade) Dose Ordered Sig/Kalen Route PRN Reason Start Time Stop Time Status Last Admin Dose Admin Clonidine HCl (Catapres Tab) 0.1 mg Q6H PRN ORAL For High Blood Pressure 11/03/17 07:15 12/03/17 07:14 11/04/17 09:29 Dextrose (Dextrose 50%) STAT PRN IV Hypoglycemia 11/02/17 18:00 12/02/17 17:59 Dextrose/Sodium Chloride 1,000 ml @ 50 mls/hr Q20H IV 11/02/17 18:00 12/02/17 17:59 11/05/17 04:32 Escitalopram Oxalate (Lexapro) 10 mg DAILY ORAL 11/04/17 09:00 12/04/17 08:59 11/05/17 09:53 Levothyroxine Sodium (Synthroid) 50 mcg ACBREAKFAST ORAL 11/03/17 06:30 12/03/17 06:29 11/05/17 06:18 Lorazepam (Ativan 2mg/ml 1ml) 0.5 mg Q4H PRN IV For Anxiety 11/02/17 18:00 11/09/17 17:59 11/04/17 09:04 Morphine Sulfate (Morphine Sulfate) 1 mg Q4H PRN IVP PAIN 4-10 11/02/17 18:00 11/09/17 17:59 Nifedipine (Procardia XL) 30 mg DAILY ORAL 11/03/17 09:00 12/03/17 08:59 11/05/17 09:53 Ondansetron HCl (Zofran) 4 mg Q6H PRN IVP Nausea & Vomiting 11/02/17 18:00 12/02/17 17:59 Warfarin Sodium (Coumadin per pharmacy) 1 ea DAILY PRN MISC . 11/02/17 18:15 12/02/17 18:14 Warfarin Sodium (Coumadin) 2 mg COUMADIN ONCE ORAL 11/05/17 17:00 11/05/17 17:01 Zolpidem Tartrate (Ambien) 5 mg HSPRN PRN ORAL Insomnia 11/02/17 21:00 11/09/17 20:59 DORA VENTURA Nov 05, 2017 11:46
[2017-11-05 12:00] VITALS: BP 124/68
[2017-11-05] MEDS: D5NS 1,000 ML IV SCH (12:25)
[2017-11-05] MEDS ORDERED: D5 1/2NS 1000ml IV ONE ×3 (15:01→16:11)
[2017-11-05 16:00] VITALS: BP 133/78
[2017-11-05] MEDS ORDERED: Warfarin Sodium 2mg ORAL ONE (17:00)
[2017-11-05 20:00] VITALS: BP 133/78
[2017-11-06] VITALS: BP 132/69
[2017-11-06 04:00] VITALS: BP 127/71
[2017-11-06 08:00] VITALS: BP 150/67
[2017-11-06] MEDS: D5NS 1,000 ML IV SCH (08:07)
[2017-11-06 09:12] LABS: BASOPHILS % (AUTO) 0.5 % (0.0-2.0); EOSINOPHILS % (AUTO) 3.2 % (0.0-3.0); HEMATOCRIT 33.3 % (37.0-47.0); HEMOGLOBIN 11.6 G/DL (12.0-16.0); MEAN CORPUSCULAR VOLUME 90 FL (80-99); MONOCYTES % (AUTO) 7.9 % (1.0-10.0); NEUTROPHILS % (AUTO) 55.4 % (45.0-75.0); PLATELET COUNT 260 K/UL (150-450); RED BLOOD COUNT 3.69 M/UL (4.20-5.40); RED CELL DISTRIBUTION WIDTH 10.9 % (11.6-14.8); WHITE BLOOD COUNT 5.4 K/UL (4.8-10.8)
[2017-11-06 09:13] LABS: INR 2.3 (0.9-1.1)
[2017-11-06 09:29] LABS: ALANINE AMINOTRANSFERASE 14 U/L (12-78); ALBUMIN 2.3 G/DL (3.4-5.0); ALBUMIN/GLOBULIN RATIO 0.6 (1.0-2.7); ALKALINE PHOSPHATASE 97 U/L (46-116); ANION GAP 8 mmol/L (5-15); ASPARTATE AMINO TRANSFERASE 25 U/L (15-37); BILIRUBIN,TOTAL 0.5 MG/DL (0.2-1.0); BLOOD UREA NITROGEN 6 mg/dL (7-18); CALCIUM 9.1 MG/DL (8.5-10.1); CARBON DIOXIDE 25 MMOL/L (21-32); CHLORIDE 105 MMOL/L (98-107); CREATININE 0.6 MG/DL (0.55-1.30); PHOSPHORUS 2.6 MG/DL (2.5-4.9); POTASSIUM 3.9 MMOL/L (3.5-5.1); SODIUM 138 MMOL/L (136-145)
--- NOTE | 2017-11-06 10:39 | Pulmonology Progress Note ---
Assessment/Plan Problems: (1) Altered mental status (2) UTI (urinary tract infection) (3) Dementia (4) Hypothyroidism (5) History of DVT (deep vein thrombosis) Assessment/Plan improving continue abx swallow study not done, because pt is lethargic ( more awake now social service consult pt is appropiate for end of life and hospice care f/u labs social service to look for family members.Social service note appreciated Subjective ROS Limited/Unobtainable: No Allergies: Coded Allergies: No Known Allergies (Unverified , 11/26/16) Objective Last 24 Hour Vital Signs Date Time Temp Pulse Resp B/P (MAP) Pulse Ox O2 Delivery O2 Flow Rate FiO2 11/06/17 08:07 72 127/71 11/06/17 08:00 97.3 57 18 150/67 97 Room Air 11/06/17 04:00 97.5 72 19 127/71 96 11/06/17 00:00 97.7 64 20 132/69 98 11/05/17 20:00 97.5 68 20 133/78 96 11/05/17 17:43 Room Air 11/05/17 16:00 97.3 66 20 133/78 97 11/05/17 12:01 Room Air 11/05/17 12:00 97.3 70 20 124/68 97 Intake and Output 11/05/17 11/06/17 19:00 07:00 Intake Total 670 ml 600 ml Output Total 600 ml Balance 70 ml 600 ml Intake Oral 120 ml IV Total 550 ml 600 ml Output Urine Total 600 ml # Voids 2 Objective General Appearance: cachetic Lines, tubes and drains: peripheral HEENT: normocephalic, atraumatic Neck: non-tender, normal alignment Respiratory/Chest: chest wall non-tender, lungs clear Cardiovascular/Chest: normal peripheral pulses, normal rate Abdomen: normal bowel sounds, soft Genitourinary/Rectal: normal rectal exam, normal prostate exam Laboratory Tests 11/06/17 06:49: White Blood Count 5.4, Red Blood Count 3.69L, Hemoglobin 11.6L, Hematocrit 33.3L , Mean Corpuscular Volume 90, Mean Corpuscular Hemoglobin 31.4H, Mean Corpuscular Hemoglobin Concent 34.9, Red Cell Distribution Width 10.9L, Platelet Count 260, Mean Platelet Volume 7.3, Neutrophils (%) (Auto) 55.4, Lymphocytes (%) (Auto) 33.0, Monocytes (%) (Auto) 7.9, Eosinophils (%) (Auto) 3.2H, Basophils (%) (Auto) 0.5, Prothrombin Time 24.7H, Prothromb Time International Ratio 2.3H, Activated Partial Thromboplast Time 43H, Sodium Level 138, Potassium Level 3.9, Chloride Level 105, Carbon Dioxide Level 25, Anion Gap 8, Blood Urea Nitrogen 6L, Creatinine 0.6, Estimat Glomerular Filtration Rate , Glucose Level 94, Calcium Level 9.1, Phosphorus Level 2.6, Magnesium Level 1.6L, Total Bilirubin 0.5, Aspartate Amino Transf (AST/SGOT) 25, Alanine Aminotransferase (ALT/SGPT) 14, Alkaline Phosphatase 97, Total Protein 6.4, Albumin 2.3L, Globulin 4.1, Albumin/Globulin Ratio 0.6L Current Medications Medications (Trade) Dose Ordered Sig/Kalen Route PRN Reason Start Time Stop Time Status Last Admin Dose Admin Clonidine HCl (Catapres Tab) 0.1 mg Q6H PRN ORAL For High Blood Pressure 11/03/17 07:15 12/03/17 07:14 11/04/17 09:29 Dextrose (Dextrose 50%) STAT PRN IV Hypoglycemia 11/02/17 18:00 12/02/17 17:59 Dextrose/Sodium Chloride 1,000 ml @ 50 mls/hr Q20H IV 11/05/17 12:30 12/05/17 12:29 11/06/17 08:07 Escitalopram Oxalate (Lexapro) 10 mg DAILY ORAL 11/04/17 09:00 12/04/17 08:59 11/06/17 08:08 Levothyroxine Sodium (Synthroid) 50 mcg ACBREAKFAST ORAL 11/03/17 06:30 12/03/17 06:29 11/06/17 06:05 Lorazepam (Ativan 2mg/ml 1ml) 0.5 mg Q4H PRN IV For Anxiety 11/02/17 18:00 11/09/17 17:59 11/04/17 09:04 Morphine Sulfate (Morphine Sulfate) 1 mg Q4H PRN IVP PAIN 4-10 11/02/17 18:00 11/09/17 17:59 Nifedipine (Procardia XL) 30 mg DAILY ORAL 11/03/17 09:00 12/03/17 08:59 11/06/17 08:07 Ondansetron HCl (Zofran) 4 mg Q6H PRN IVP Nausea & Vomiting 11/02/17 18:00 12/02/17 17:59 Warfarin Sodium (Coumadin per pharmacy) 1 ea DAILY PRN MISC . 11/02/17 18:15 12/02/17 18:14 Warfarin Sodium (Coumadin) 3.5 mg COUMADIN ONCE ORAL 11/06/17 17:00 11/06/17 17:01 Zolpidem Tartrate (Ambien) 5 mg HSPRN PRN ORAL Insomnia 11/02/17 21:00 11/09/17 20:59 DORA VENTURA Nov 06, 2017 10:39
[2017-11-06 11:59] VITALS: BP 106/48
[2017-11-06 15:48] VITALS: BP 128/65
[2017-11-06] MEDS ORDERED: WARFARIN SOD ORAL ONE ×2 (17:00)
[2017-11-06 20:00] VITALS: BP 133/71
[2017-11-06] MEDS: LORazepam Inj 2mg/ml 1ml IV PRN (21:50)
--- NOTE | 2017-11-06 23:34 | General Progress Note ---
Assessment/Plan Status: not improved, unchanged Subjective Date patient seen: Nov 06, 2017 Neurologic/Psychiatric: Reports: anxiety, depressed, emotional problems Allergies: Coded Allergies: No Known Allergies (Unverified , 11/26/16) Objective Last 24 Hour Vital Signs Date Time Temp Pulse Resp B/P (MAP) Pulse Ox O2 Delivery O2 Flow Rate FiO2 11/06/17 20:00 97.8 83 20 133/71 98 11/06/17 15:48 97.3 79 18 128/65 98 Room Air 11/06/17 11:59 97.3 78 18 106/48 94 Room Air 11/06/17 08:07 72 127/71 11/06/17 08:00 97.3 57 18 150/67 97 Room Air 11/06/17 04:00 97.5 72 19 127/71 96 11/06/17 00:00 97.7 64 20 132/69 98 Intake and Output 11/05/17 11/06/17 19:00 07:00 Intake Total 670 ml 600 ml Output Total 600 ml Balance 70 ml 600 ml Intake Oral 120 ml IV Total 550 ml 600 ml Output Urine Total 600 ml # Voids 2 Laboratory Tests 11/06/17 06:49: White Blood Count 5.4, Red Blood Count 3.69L, Hemoglobin 11.6L, Hematocrit 33.3L , Mean Corpuscular Volume 90, Mean Corpuscular Hemoglobin 31.4H, Mean Corpuscular Hemoglobin Concent 34.9, Red Cell Distribution Width 10.9L, Platelet Count 260, Mean Platelet Volume 7.3, Neutrophils (%) (Auto) 55.4, Lymphocytes (%) (Auto) 33.0, Monocytes (%) (Auto) 7.9, Eosinophils (%) (Auto) 3.2H, Basophils (%) (Auto) 0.5, Prothrombin Time 24.7H, Prothromb Time International Ratio 2.3H, Activated Partial Thromboplast Time 43H, Sodium Level 138, Potassium Level 3.9, Chloride Level 105, Carbon Dioxide Level 25, Anion Gap 8, Blood Urea Nitrogen 6L, Creatinine 0.6, Estimat Glomerular Filtration Rate , Glucose Level 94, Calcium Level 9.1, Phosphorus Level 2.6, Magnesium Level 1.6L, Total Bilirubin 0.5, Aspartate Amino Transf (AST/SGOT) 25, Alanine Aminotransferase (ALT/SGPT) 14, Alkaline Phosphatase 97, Total Protein 6.4, Albumin 2.3L, Globulin 4.1, Albumin/Globulin Ratio 0.6L Height (Feet): 5 Height (Inches): 4.00 Weight (Pounds): 140 General Appearance: no apparent distress, alert, confused, agitated Neurologic: disoriented, depressed affect Sebastian Steel M.D. Nov 06, 2017 23:34
--- NOTE | 2017-11-06 23:35 | Geriatric Progress Note ---
Assessment/Plan Assessment/Plan ASSESSMENT: 1. Generalized weakness. 2. Encephalopathy. PLAN: 1. We will continue the lorazepam. 2. We will continue the citalopram in the morning. 3. We will continue to follow and readjust the medications. Subjective Interval Events 11/05/17 Mood/Memory: Reports: prior hx, anxiety, depressed feelings, emotional problems Geriatric Geriatric Last 24 Hour Vital Signs Date Time Temp Pulse Resp B/P (MAP) Pulse Ox O2 Delivery O2 Flow Rate FiO2 11/06/17 20:00 97.8 83 20 133/71 98 11/06/17 15:48 97.3 79 18 128/65 98 Room Air 11/06/17 11:59 97.3 78 18 106/48 94 Room Air 11/06/17 08:07 72 127/71 11/06/17 08:00 97.3 57 18 150/67 97 Room Air 11/06/17 04:00 97.5 72 19 127/71 96 11/06/17 00:00 97.7 64 20 132/69 98 Intake and Output 11/05/17 11/06/17 19:00 07:00 Intake Total 670 ml 600 ml Output Total 600 ml Balance 70 ml 600 ml Intake Oral 120 ml IV Total 550 ml 600 ml Output Urine Total 600 ml # Voids 2 Laboratory Tests Test 11/06/17 06:49 White Blood Count 5.4 K/UL (4.8-10.8) Red Blood Count 3.69 M/UL (4.20-5.40) L Hemoglobin 11.6 G/DL (12.0-16.0) L Hematocrit 33.3 % (37.0-47.0) L Mean Corpuscular Volume 90 FL (80-99) Mean Corpuscular Hemoglobin 31.4 PG (27.0-31.0) H Mean Corpuscular Hemoglobin Concent 34.9 G/DL (32.0-36.0) Red Cell Distribution Width 10.9 % (11.6-14.8) L Platelet Count 260 K/UL (150-450) Mean Platelet Volume 7.3 FL (6.5-10.1) Neutrophils (%) (Auto) 55.4 % (45.0-75.0) Lymphocytes (%) (Auto) 33.0 % (20.0-45.0) Monocytes (%) (Auto) 7.9 % (1.0-10.0) Eosinophils (%) (Auto) 3.2 % (0.0-3.0) H Basophils (%) (Auto) 0.5 % (0.0-2.0) Prothrombin Time 24.7 SEC (9.30-11.50) H Prothromb Time International Ratio 2.3 (0.9-1.1) H Activated Partial Thromboplast Time 43 SEC (23-33) H Sodium Level 138 MMOL/L (136-145) Potassium Level 3.9 MMOL/L (3.5-5.1) Chloride Level 105 MMOL/L (98-107) Carbon Dioxide Level 25 MMOL/L (21-32) Anion Gap 8 mmol/L (5-15) Blood Urea Nitrogen 6 mg/dL (7-18) L Creatinine 0.6 MG/DL (0.55-1.30) Estimat Glomerular Filtration Rate mL/min (>60) Glucose Level 94 MG/DL (74-106) Calcium Level 9.1 MG/DL (8.5-10.1) Phosphorus Level 2.6 MG/DL (2.5-4.9) Magnesium Level 1.6 MG/DL (1.8-2.4) L Total Bilirubin 0.5 MG/DL (0.2-1.0) Aspartate Amino Transf (AST/SGOT) 25 U/L (15-37) Alanine Aminotransferase (ALT/SGPT) 14 U/L (12-78) Alkaline Phosphatase 97 U/L (46-116) Total Protein 6.4 G/DL (6.4-8.2) Albumin 2.3 G/DL (3.4-5.0) L Globulin 4.1 g/dL Albumin/Globulin Ratio 0.6 (1.0-2.7) L Current Medications Medications (Trade) Dose Ordered Sig/Kalen Route PRN Reason Start Time Stop Time Status Last Admin Dose Admin Clonidine HCl (Catapres Tab) 0.1 mg Q6H PRN ORAL For High Blood Pressure 11/03/17 07:15 12/03/17 07:14 11/04/17 09:29 Dextrose (Dextrose 50%) STAT PRN IV Hypoglycemia 11/02/17 18:00 12/02/17 17:59 Dextrose/Sodium Chloride 1,000 ml @ 50 mls/hr Q20H IV 11/05/17 12:30 12/05/17 12:29 11/06/17 08:07 Escitalopram Oxalate (Lexapro) 10 mg DAILY ORAL 11/04/17 09:00 12/04/17 08:59 11/06/17 08:08 Levothyroxine Sodium (Synthroid) 50 mcg ACBREAKFAST ORAL 11/03/17 06:30 12/03/17 06:29 11/06/17 06:05 Lorazepam (Ativan 2mg/ml 1ml) 0.5 mg Q4H PRN IV For Anxiety 11/02/17 18:00 11/09/17 17:59 11/06/17 21:50 Morphine Sulfate (Morphine Sulfate) 1 mg Q4H PRN IVP PAIN 4-10 11/02/17 18:00 11/09/17 17:59 Nifedipine (Procardia XL) 30 mg DAILY ORAL 11/03/17 09:00 12/03/17 08:59 11/06/17 08:07 Ondansetron HCl (Zofran) 4 mg Q6H PRN IVP Nausea & Vomiting 11/02/17 18:00 12/02/17 17:59 Warfarin Sodium (Coumadin per pharmacy) 1 ea DAILY PRN MISC . 11/02/17 18:15 12/02/17 18:14 Zolpidem Tartrate (Ambien) 5 mg HSPRN PRN ORAL Insomnia 11/02/17 21:00 11/09/17 20:59 Height (Feet): 5 Height (Inches): 4.00 Weight (Pounds): 140 Sebastian Steel M.D. Nov 06, 2017 23:35
[2017-11-07] VITALS: BP 133/70
[2017-11-07] MEDS: D5NS 1,000 ML IV SCH (03:08)
[2017-11-07 04:00] VITALS: BP 98/69
[2017-11-07 06:25] LABS: BASOPHILS % (AUTO) 0.8 % (0.0-2.0); EOSINOPHILS % (AUTO) 2.1 % (0.0-3.0); HEMATOCRIT 32.8 % (37.0-47.0); HEMOGLOBIN 11.4 G/DL (12.0-16.0); LYMPHOCYTES % (AUTO) 35.2 % (20.0-45.0); MEAN CORPUSCULAR VOLUME 89 FL (80-99); PLATELET COUNT 295 K/UL (150-450); RED BLOOD COUNT 3.66 M/UL (4.20-5.40); RED CELL DISTRIBUTION WIDTH 10.7 % (11.6-14.8); WHITE BLOOD COUNT 5.5 K/UL (4.8-10.8)
[2017-11-07 06:57] LABS: ALANINE AMINOTRANSFERASE 21 U/L (12-78); ALBUMIN 2.4 G/DL (3.4-5.0); ALBUMIN/GLOBULIN RATIO 0.6 (1.0-2.7); ALKALINE PHOSPHATASE 104 U/L (46-116); ANION GAP 8 mmol/L (5-15); ASPARTATE AMINO TRANSFERASE 35 U/L (15-37); BILIRUBIN,TOTAL 0.5 MG/DL (0.2-1.0); BLOOD UREA NITROGEN 5 mg/dL (7-18); CALCIUM 8.7 MG/DL (8.5-10.1); CARBON DIOXIDE 25 MMOL/L (21-32); CHLORIDE 104 MMOL/L (98-107); CREATININE 0.7 MG/DL (0.55-1.30); PHOSPHORUS 2.2 MG/DL (2.5-4.9); POTASSIUM 3.3 MMOL/L (3.5-5.1); SODIUM 137 MMOL/L (136-145)
[2017-11-07 08:00] VITALS: BP 143/68
[2017-11-07] MEDS ORDERED: D5NS 1000ml IV ONE (10:08)
[2017-11-07 12:00] VITALS: BP 128/65
[2017-11-07] MEDS ORDERED: cefTRIAXone 1 GM in NS 55 ML IVPB SCH (12:00)
[2017-11-07] MEDS ORDERED: BACTRIM DOUBLE S1 E1 ORAL (15:06)
--- NOTE | 2017-11-07 15:07 | Pulmonology Progress Note ---
Assessment/Plan Problems: (1) Altered mental status (2) UTI (urinary tract infection) (3) Dementia (4) Hypothyroidism (5) History of DVT (deep vein thrombosis) Assessment/Plan dc to nursing homeimproving continue abx swallow study not done, because pt is lethargic ( more awake now social service consult pt is appropiate for end of life and hospice care f/u labs social service to look for family members.Social service note appreciated Subjective ROS Limited/Unobtainable: No Constitutional: Reports: no symptoms Respiratory: Reports: no symptoms Allergies: Coded Allergies: No Known Allergies (Unverified , 11/26/16) Objective Last 24 Hour Vital Signs Date Time Temp Pulse Resp B/P (MAP) Pulse Ox O2 Delivery O2 Flow Rate FiO2 11/07/17 12:00 97.6 75 20 128/65 98 11/07/17 08:54 66 143/68 11/07/17 08:00 97.7 66 20 143/68 98 11/07/17 04:00 97.4 80 20 98/69 92 11/07/17 00:00 97.8 94 20 133/70 98 11/06/17 20:00 97.8 83 20 133/71 98 11/06/17 15:48 97.3 79 18 128/65 98 Room Air Intake and Output 11/06/17 11/07/17 19:00 07:00 Intake Total 700 ml 550 ml Output Total 1000 ml 850 ml Balance -300 ml -300 ml Intake Oral 300 ml IV Total 400 ml 550 ml Output Urine Total 1000 ml 850 ml Objective General Appearance: cachetic Lines, tubes and drains: peripheral HEENT: normocephalic, atraumatic Neck: non-tender, normal alignment Respiratory/Chest: chest wall non-tender, lungs clear Cardiovascular/Chest: normal peripheral pulses, normal rate Abdomen: normal bowel sounds, soft Genitourinary/Rectal: normal rectal exam, normal prostate exam Laboratory Tests 11/07/17 04:30: White Blood Count 5.5, Red Blood Count 3.66L, Hemoglobin 11.4L, Hematocrit 32.8L , Mean Corpuscular Volume 89, Mean Corpuscular Hemoglobin 31.0, Mean Corpuscular Hemoglobin Concent 34.7, Red Cell Distribution Width 10.7L, Platelet Count 295, Mean Platelet Volume 7.4, Neutrophils (%) (Auto) 54.0, Lymphocytes (%) (Auto) 35.2, Monocytes (%) (Auto) 8.0, Eosinophils (%) (Auto) 2.1, Basophils (%) (Auto) 0.8, Prothrombin Time 21.4H, Prothromb Time International Ratio 2.0H, Sodium Level 137, Potassium Level 3.3L, Chloride Level 104, Carbon Dioxide Level 25, Anion Gap 8, Blood Urea Nitrogen 5L, Creatinine 0.7, Estimat Glomerular Filtration Rate , Glucose Level 92, Calcium Level 8.7, Phosphorus Level 2.2L, Magnesium Level 1.5L, Total Bilirubin 0.5, Aspartate Amino Transf (AST/SGOT) 35, Alanine Aminotransferase (ALT/SGPT) 21, Alkaline Phosphatase 104, Total Protein 6.5, Albumin 2.4L, Globulin 4.1, Albumin /Globulin Ratio 0.6L Current Medications Medications (Trade) Dose Ordered Sig/Kalen Route PRN Reason Start Time Stop Time Status Last Admin Dose Admin Ceftriaxone Sodium 1 gm/ Sodium Chloride 55 ml @ 110 mls/hr Q24H IVPB 11/07/17 12:00 11/14/17 11:59 11/07/17 11:53 Clonidine HCl (Catapres Tab) 0.1 mg Q6H PRN ORAL For High Blood Pressure 11/03/17 07:15 12/03/17 07:14 11/04/17 09:29 Dextrose (Dextrose 50%) STAT PRN IV Hypoglycemia 11/02/17 18:00 12/02/17 17:59 Dextrose/Sodium Chloride 1,000 ml @ 50 mls/hr Q20H IV 11/05/17 12:30 12/05/17 12:29 11/07/17 03:08 Escitalopram Oxalate (Lexapro) 10 mg DAILY ORAL 11/04/17 09:00 12/04/17 08:59 11/07/17 08:54 Levothyroxine Sodium (Synthroid) 50 mcg ACBREAKFAST ORAL 11/03/17 06:30 12/03/17 06:29 11/07/17 06:12 Lorazepam (Ativan 2mg/ml 1ml) 0.5 mg Q4H PRN IV For Anxiety 11/02/17 18:00 11/09/17 17:59 11/06/17 21:50 Mirtazapine (Remeron) 7.5 mg BEDTIME ORAL 11/07/17 21:00 12/07/17 20:59 Morphine Sulfate (Morphine Sulfate) 1 mg Q4H PRN IVP PAIN 4-10 11/02/17 18:00 11/09/17 17:59 Nifedipine (Procardia XL) 30 mg DAILY ORAL 11/03/17 09:00 12/03/17 08:59 11/07/17 08:54 Ondansetron HCl (Zofran) 4 mg Q6H PRN IVP Nausea & Vomiting 11/02/17 18:00 12/02/17 17:59 Warfarin Sodium (Coumadin per pharmacy) 1 ea DAILY PRN MISC . 11/02/17 18:15 12/02/17 18:14 Warfarin Sodium (Coumadin) 3 mg COUMADIN ONCE ORAL 11/07/17 17:00 11/07/17 17:01 Zolpidem Tartrate (Ambien) 5 mg HSPRN PRN ORAL Insomnia 11/02/17 21:00 11/09/17 20:59 DORA VENTURA Nov 07, 2017 15:07
[2017-11-07] MEDS ORDERED: Bisacodyl EC 5mg tab ORAL ONE (15:45)
[2017-11-07 16:00] VITALS: BP 122/60
[2017-11-07] MEDS ORDERED: Warfarin Sodium 3mg ORAL ONE (17:00)
--- NOTE | 2017-11-07 20:15 | Progress Note ---
DATE: 11/07/2017 SUBJECTIVE: The patient is still weak, Welsh-speaking, and a sitter translated. The patient continues with waxing and waning consciousness, anxiety, and however, she still attempts to come out of bed at times. MENTAL STATUS EXAMINATION: The patient is alert, however, confused. Mood is neutral. Affect is constricted. Congruent with mood. Thought process, there is a paucity of thought content. Thought content, no suicidal or homicidal ideation. Cognition is impaired. ASSESSMENT: Encephalopathy and dementia. PLAN: 1. We will start the patient on low dose of antipsychotics at night. 2. Provide the patient with supportive therapy and reality orientation. Sebastian Steel M.D. DR: ELENA JOB#: [id number] CC:
--- NOTE | 2017-11-09 11:42 | Discharge Summary ---
Discharge Summary Hospital Course Date of Admission Nov 02, 2017 at 13:58 Date of Discharge Nov 07, 2017 at 19:30 Admitting Diagnosis weakness HPI Lexy Rose is a 86 year old female who was admitted on Nov 02, 2017 at 13:58 for Weakness Hospital Course dc summary #[id number] Discharge Medications New Medications: Trimethoprim/Sulfamethoxazole (Bactrim 400-80 mg Tablet) 1 Each Tablet 1 TAB ORAL TWICE A DAY for 5 Days, TAB Continued Medications: Acetaminophen (Acetaminophen) 650 Mg/20.3 Ml Solution 650 MG ORAL Q4HR PRN for Prn Headache/Temp > 101, ML 0 Refills Alprazolam* (Xanax*) 0.25 Mg Tablet 0.25 MG ORAL DAILY, #30 TAB 0 Refills Levothyroxine Sodium* (Levothyroxine Sodium*) 50 Mcg Tablet 50 MCG ORAL DAILY, TAB Take in the morning on an empty stomach, at least 30 minutes before food. Nifedipine Er* (Nifedipine Er*) 30 Mg Tab.er.24 30 MG ORAL DAILY, TAB Warfarin Sod* (Coumadin*) 6 Mg Tablet 4 MG ORAL DAILY, TAB Zolpidem Tartrate* (Zolpidem Tartrate*) 5 Mg Tablet 5 MG ORAL BEDTIME PRN for Insomnia, TAB 0 Refills Discharge Condition Upon Discharge: stable Discharge Disposition Patient was discharged to SNF/Subacute Facility(03) Discharge Diagnoses: Discharge Instructions Discharge Instructions Special Instructions I have been assigned to complete a D/C Summary on this account. I was not involved in the patient management Amy George NP ([place]te[place]) Nov 09, 2017 11:42
--- NOTE | 2017-11-09 23:15 | Discharge Summary ---
DATE OF ADMISSION: 11/02/2017 DATE OF DISCHARGE: 11/07/2017 REASON FOR ADMISSION: 86-year-old female with a history of hypertension and dysphagia, presented with decreased responsiveness and weakness. Per nursing staff, she was eating less, and was less interactive. No fever. The patient by herself was unable to provide any history. The patient was on Coumadin due to the history of DVT. Workup in the emergency room revealed stable vital signs. Heart rate- 56. EKG showed atrial fibrillation. No acute ischemic changes. Troponin negative. Pro BNP- 646. Albumin low,- 2.7. Elevated TSH -4.736. Urinalysis with gross evidence of urinary tract infection. No leukocytosis. Stable hemoglobin and hematocrit. ESR -50. Lactic acid -1.1. Stable renal parameters and electrolytes. INR -4.1. The patient was admitted with diagnoses of altered mental status, hypothyroidism with elevated TSH, urinary tract infection, and over coagulation secondary to Coumadin use. HOSPITAL COURSE: The patient was admitted. The patient was started on empiric antibiotics. Urine culture revealed Providencia. While in the hospital, the patient was on IV antibiotics , which switched to oral upon discharge to custodial facility. INR was followed up daily. INR down to 2.8 on 11/04/2017. Coumadin restarted as per pharmacy to keep INR in therapeutic range between [address] of the head initially done on admission revealed no acute intracranial pathology, but showed chronic age-related changes. Chest x-ray revealed borderline cardiomegaly, but no definite acute process. Pulse oximetry was stable on room air. The patient was on the IV fluids. INR remained therapeutic while dosing by pharmacy. Blood pressure was managed with low dose of nifedipine and remained stable. Heart rate controlled. The patient was in the atrial fibrillation with controlled ventricular response. Blood culture negative. Levothyroxine dose increased due to elevated TSH. Repeat thyroid function test in four weeks. Psychiatrist seen and evaluated the patient and diagnosed her with depression, anxiety, and delirium secondary to general medical condition as well as encephalopathy. Neurologist seen and evaluated the patient and diagnosed the patient with advanced dementia. Recommended to hold all unessential medications, avoid over-sedation, avoid use of benzodiazepine, and continue supportive care. The patient was DNR/DNI status. The patient had swallow evaluation, which revealed dysphagia and aspiration risk. Diet for quality of life started as per speech therapy recommendations with strict aspiration precautions. Wound care provided as per wound care nurse recommendation. The patient was stable for discharge back to custodial facility. FINAL DIAGNOSES: 1. Altered mental status secondary to encephalopathy. 2. Depression, anxiety, and delirium secondary to general medical condition. 3. Advanced senile dementia. 4. Urinary tract infection with Providencia. 5. 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 6. Dysphagia. 7. Hypothyroidism with elevated TSH. 8. Right lateral and plantar first toe uns-tageable pressure ulcer, present on admission. 9. History of deep venous thrombosis. DISCHARGE MEDICATIONS: See medication reconciliation list. DISCHARGE INSTRUCTIONS: The patient was discharged to custodial facility. FOLLOWUP: Follow up with medical doctor at the facility. Jessica Amador M.D. I have been assigned to dictate discharge summary on this account and I was not involved in the patient's management. Amy MartinezKelly murphy DR: BRITTANY JOB#: [id number] CC: NEELAM
== END 2017-11-07 19:30 | DRG 463 ==
LOC: EDUNIT# 12:32 → EDBD 12:32 → EMR 13:30 → 4E 13:58 → EDBEDREQ 14:19 → 4E 11-03 20:19
DX: N39.0 Urinary tract infection, site not specified (principal); G93.40 Encephalopathy, unspecified; D68.9 Coagulation defect, unspecified; F03.90 Unspecified dementia, unspecified severity, without behavioral disturbance, psychotic disturbance, mood disturbance, and anxiety; F05 Delirium due to known physiological condition; R13.10 Dysphagia, unspecified; L89.890 Pressure ulcer of other site, unstageable; E03.9 Hypothyroidism, unspecified; R41.82 Altered mental status, unspecified; Z86.718 Personal history of other venous thrombosis and embolism; F41.8 Other specified anxiety disorders; Z79.01 Long term (current) use of anticoagulants; B96.89 Other specified bacterial agents as the cause of diseases classified elsewhere
CPT/HCPCS: 36415; 70450; 71045; 80053; 81003; 82550; 82962; 83605; 83690; 83735; 83880; 84100; 84443; 84484; 85025; 85610; 85651; 85730; 87040; 87081; 87086; 87181; 93005; 99284; J8499

== ENCOUNTER 2018-02-22 14:22 | Inpatient (IN) | payer MEDICARE, OTHER ==
[~2018-02-22] VITALS: Ht 160 cm; Wt 59.0 kg
[~2018-02-22 14:22] MED LIST changes: +BACTRIM DOUBLE S1 E1 ORAL
[2018-02-22] MEDS ORDERED: Vancomycin 1 GM in NS 275 ML IV ONE (14:45)
--- NOTE | 2018-02-22 14:51 | Emergency Room Report ---
History of Present Illness General Chief Complaint: Lower Extremity Injury Source: EMS Present Illness HPI 87-year-old female presents ED for evaluation of swelling to the right big toe. Patient comes from senior care. Unclear when symptoms started. Patient has dementia and is unable to provide any additional history at this time. Upon arrival patient appears to be in no distress. Afebrile. No other aggravating relieving factors. No other associated symptoms Allergies: Coded Allergies: No Known Allergies (Unverified , 11/26/16) Patient History Past Medical History: dementia Past Surgical History: none Pertinent Family History: none Social History: Denies: smoking, alcohol use, drug use Last Menstrual Period: NA Now: No Immunizations: UTD Reviewed Nursing Documentation: PMH: Agreed; PSxH: Agreed Nursing Documentation-PMH Past Medical History: No History, Except For Hx Cancer: No Hx Gastrointestinal Problems: Yes - dysphagia Hx Neurological Problems: Yes - Altered mental status. Review of Systems All Other Systems: limited Physical Exam Vital Signs Date Time Temp Pulse Resp B/P (MAP) Pulse Ox O2 Delivery O2 Flow Rate FiO2 02/22/18 14:14 97.9 61 18 126/84 94 Room Air 97.9 Sp02 EP Interpretation: reviewed, normal General Appearance: no apparent distress, thin, other - dementia Head: normocephalic Eyes: bilateral eye normal inspection, bilateral eye PERRL ENT: normal ENT inspection Neck: normal inspection Respiratory: chest non-tender, lungs clear, normal breath sounds, speaking full sentences Cardiovascular #1: regular rate, rhythm, no edema Gastrointestinal: normal bowel sounds, non tender, soft, non-distended, no guarding, no rebound Rectal: deferred Genitourinary: no CVA tenderness Musculoskeletal: swelling - R big toe. erythematous/swollen Neurologic: other - dementia Psychiatric: other - dementia Skin: other - 2x2cm ulceration to base of R big toe Lymphatic: normal inspection Medical Decision Making Diagnostic Impression: Primary Impression: Ulcer of toe Qualified Codes: L97.519 - Non-pressure chronic ulcer of other part of right foot with unspecified severity Additional Impressions: Cellulitis of toe Qualified Codes: L03.031 - Cellulitis of right toe UTI (urinary tract infection) Qualified Codes: N39.0 - Urinary tract infection, site not specified Acute encephalopathy ER Course Hospital Course 87-year-old female presents to ED with redness, swelling to R big toe Differential diagnoses include: Cellulitis, DVT, abscess, rash. Clinical course Patient placed on stretcher. After initial history and physical I ordered labs , blood Cx, UA, IVFs, xray R foot labs reviewed - no leukocytosis, Hb/Hct stable, no electrolyte abnormalities, lactate ok, UA+ bacteria xray R foot shows significant osteoperosis, subluxation of 1st toe there is a significant ulcer to base of R toe. concerning for osteomyelitis broad spectrum antibiotics given. Case discussed with Dr Duenas and he agreed to accept the patient to his service for further care and support Diagnosis - ulcer of toe, cellulitis of toe, UTI, acute encephalopathy Patient admitted to floor in serious condition Labs Test 02/22/18 14:50 02/22/18 15:00 White Blood Count 7.8 K/UL (4.8-10.8) Red Blood Count 3.96 M/UL (4.20-5.40) Hemoglobin 11.7 G/DL (12.0-16.0) Hematocrit 36.3 % (37.0-47.0) Mean Corpuscular Volume 92 FL (80-99) Mean Corpuscular Hemoglobin 29.6 PG (27.0-31.0) Mean Corpuscular Hemoglobin Concent 32.2 G/DL (32.0-36.0) Red Cell Distribution Width 11.1 % (11.6-14.8) Platelet Count 295 K/UL (150-450) Mean Platelet Volume 7.9 FL (6.5-10.1) Neutrophils (%) (Auto) 63.0 % (45.0-75.0) Lymphocytes (%) (Auto) 26.5 % (20.0-45.0) Monocytes (%) (Auto) 7.9 % (1.0-10.0) Eosinophils (%) (Auto) 1.9 % (0.0-3.0) Basophils (%) (Auto) 0.7 % (0.0-2.0) Sodium Level 136 MMOL/L (136-145) Potassium Level 4.4 MMOL/L (3.5-5.1) Chloride Level 102 MMOL/L (98-107) Carbon Dioxide Level 27 MMOL/L (21-32) Anion Gap 7 mmol/L (5-15) Blood Urea Nitrogen 13 mg/dL (7-18) Creatinine 0.7 MG/DL (0.55-1.30) Estimat Glomerular Filtration Rate mL/min (>60) Glucose Level 104 MG/DL (74-106) Lactic Acid Level 1.40 mmol/L (0.66-2.22) Calcium Level 9.5 MG/DL (8.5-10.1) Total Bilirubin 0.7 MG/DL (0.2-1.0) Aspartate Amino Transf (AST/SGOT) 18 U/L (15-37) Alanine Aminotransferase (ALT/SGPT) 15 U/L (12-78) Alkaline Phosphatase 107 U/L (46-116) Total Protein 7.8 G/DL (6.4-8.2) Albumin 2.7 G/DL (3.4-5.0) Globulin 5.1 g/dL Albumin/Globulin Ratio 0.5 (1.0-2.7) Urine Color Brown Urine Appearance Slightly cloudy Urine pH 7 (4.5-8.0) Urine Specific [place] 1.015 (1.005-1.035) Urine Protein 2+ (NEGATIVE) Urine Glucose (UA) Negative (NEGATIVE) Urine Ketones 1+ (NEGATIVE) Urine Occult Blood 1+ (NEGATIVE) Urine Nitrite Negative (NEGATIVE) Urine Bilirubin 1+ (NEGATIVE) Urine Ictotest Negative Urine Urobilinogen 8 MG/DL (0.0-1.0) Urine Leukocyte Esterase 3+ (NEGATIVE) Urine RBC 2-4 /HPF (0 - 2) Urine WBC 5-10 /HPF (0 - 2) Urine Squamous Epithelial Cells Few /LPF (NONE/OCC) Urine Amorphous Sediment Few /LPF (NONE) Urine Bacteria Many /HPF (NONE) Other X-Ray Diagnostic Results Other X-Ray Diagnostic Results : X-Ray ordered: R foot # of Views/Limited Vs Complete: 3 View Indication: Pain EP Interpretation: Yes Interpretation: no fractures, other - severe osteoperosis. subluxation of 1st ITP joint Impression: Other - osteoperosis, subluxation of 1st ITP Electronically Signed by: Electronically signed by Nolan Arceo MD Last Vital Signs Date Time Temp Pulse Resp B/P (MAP) Pulse Ox O2 Delivery O2 Flow Rate FiO2 02/22/18 14:14 97.9 61 18 126/84 94 Room Air 97.9 Status: improved Disposition: ADMITTED INPATIENT Condition: Serious Nolan Arceo MD February 22, 2018 14:51
[2018-02-22 15:29] LABS: BASOPHILS % (AUTO) 0.7 % (0.0-2.0); EOSINOPHILS % (AUTO) 1.9 % (0.0-3.0); HEMATOCRIT 36.3 % (37.0-47.0); HEMOGLOBIN 11.7 G/DL (12.0-16.0); LYMPHOCYTES % (AUTO) 26.5 % (20.0-45.0); MEAN CORPUSCULAR VOLUME 92 FL (80-99); MONOCYTES % (AUTO) 7.9 % (1.0-10.0); PLATELET COUNT 295 K/UL (150-450); RED BLOOD COUNT 3.96 M/UL (4.20-5.40); RED CELL DISTRIBUTION WIDTH 11.1 % (11.6-14.8); WHITE BLOOD COUNT 7.8 K/UL (4.8-10.8)
[2018-02-22 15:43] LABS: APPEARANCE,URINE SLIGHTLY CLOUDY; BILIRUBIN, URINE 1+ (NEGATIVE); COLOR,URINE BROWN; GLUCOSE, URINE (UA) NEGATIVE (NEGATIVE); KETONES,URINE 1+ (NEGATIVE); LEUKOCYTE ESTERASE ,URINE 3+ (NEGATIVE); NITRITE,URINE NEGATIVE (NEGATIVE); PH,URINE 7 (4.5-8.0); PROTEIN,URINE 2+ (NEGATIVE); UROBILINOGEN,URINE 8 MG/DL (0.0-1.0)
[2018-02-22 15:43] LABS: ANION GAP 7 mmol/L (5-15); BLOOD UREA NITROGEN 13 mg/dL (7-18); CALCIUM 9.5 MG/DL (8.5-10.1); CARBON DIOXIDE 27 MMOL/L (21-32); CHLORIDE 102 MMOL/L (98-107); CREATININE 0.7 MG/DL (0.55-1.30); POTASSIUM 4.4 MMOL/L (3.5-5.1); SODIUM 136 MMOL/L (136-145)
[2018-02-22 15:48] LABS: ALANINE AMINOTRANSFERASE 15 U/L (12-78); ALBUMIN 2.7 G/DL (3.4-5.0); ALBUMIN/GLOBULIN RATIO 0.5 (1.0-2.7); ALKALINE PHOSPHATASE 107 U/L (46-116); ASPARTATE AMINO TRANSFERASE 18 U/L (15-37); BILIRUBIN,TOTAL 0.7 MG/DL (0.2-1.0)
[2018-02-22] MEDS ORDERED: ARTIFICIAL TEAR15 ML RIGHT EYE (15:58)
[2018-02-22] MEDS ORDERED: LEXAPRO10 MG ORAL (15:59)
[2018-02-22] MEDS ORDERED: VITAMIN C500 M1 ORAL (16:00)
--- NOTE | 2018-02-22 16:17 | Diagnostic Imaging Report ---
Indication: Pain Comparison: None Findings: 3 views of the right foot were obtained. There is severe osteoporosis. No obvious acute fracture is identified. There is an old fracture of the base of the fifth metatarsal and the shaft. Subluxation of the first interphalangeal joint noted. Had hallux valgus deformity demonstrated. Soft tissue swelling is present. IMPRESSION: No obvious acute injury. Limited evaluation due to severe osteoporosis
[2018-02-22 16:38] VITALS: BP 180/81
[2018-02-22 17:45] VITALS: BP 157/74
[2018-02-22] MEDS ORDERED: Nitroglycerin Subl 0.4mg tab SL PRN (19:00)
[2018-02-22] MEDS ORDERED: Albuterol/Ipratropium 3ml neb HHN PRN (19:00)
[2018-02-22] MEDS ORDERED: Miralax 17gm pkt ORAL PRN (19:00)
[2018-02-22] MEDS ORDERED: ACETAMINOPHEN325 M1 ORAL (19:08)
[2018-02-22] MEDS ORDERED: ARTIFICIAL TEAR15 ML LEFT EYE (19:09)
[2018-02-22 20:30] VITALS: BP 126/62
[2018-02-22 20:45] VITALS: BP 145/71
[2018-02-22] MEDS: Heparin 5000 units/ml inj SUBQ SCH (21:11)
[2018-02-22] MEDS: Cefepime HCl 2 GM in D5W 110 ML IV SCH (21:30)
--- NOTE | 2018-02-22 21:38 | History and Physical ---
History of Present Illness General Date patient seen: February 22, 2018 Reason for Hospitalization: Lower Extremity Injury Present Illness HPI 87-year-old female with hx of Dementia, HTN, hypothyroid, detention resident presented to ED for evaluation of swelling to the right big toe. Patient has dementia and is unable to provide any additional history at this time. Pt is admitted for cellulitis and possible osteomyelitis. Allergies: Coded Allergies: No Known Allergies (Unverified , 11/26/16) Medication History Scheduled Ascorbic Acid* (Vitamin C*), 500 MG ORAL DAILY, (Reported) Dextran 70/Hypromellose (Artificial Tears Eye Drops*), 1 DROP RIGHT EYE FOUR TIMES A DAY, (Reported) Dextran 70/Hypromellose (Artificial Tears Eye Drops*), 1 DROP LEFT EYE BID, ( Reported) Escitalopram Oxalate* (Lexapro*), 5 MG ORAL DAILY, (Reported) Escitalopram Oxalate* (Lexapro*), 5 MG ORAL DAILY, (Reported) Levothyroxine Sodium* (Levothyroxine Sodium*), 50 MCG ORAL DAILY, (Reported) Nifedipine Er* (Nifedipine Er*), 30 MG ORAL DAILY, (Reported) Warfarin Sod* (Coumadin*), 3 MG ORAL DAILY, (Reported) Scheduled PRN Acetaminophen (Acetaminophen), 650 MG ORAL Q4HR PRN for Prn Headache/Temp > 101, (Reported) Acetaminophen* (Acetaminophen 325MG Tablet*), 650 MG ORAL Q4H PRN for Mild Pain/ Temp > 100.5, (Reported) Discontinued Medications Alprazolam* (Xanax*), 0.25 MG ORAL DAILY, (Reported) Discontinued Reason: Pt stopped taking med Hydrochlorothiazide* (Hydrochlorothiazide*), 12.5 MG ORAL DAILY, (Reported) Discontinued Reason: Pt stopped taking med Multivitamin With Minerals (Multivitamins With Minerals*), 1 TAB ORAL DAILY, ( Reported) Discontinued Reason: Pt stopped taking med Naproxen* (Naproxen*), 375 MG ORAL TWICE A DAY, (Reported) Discontinued Reason: Pt stopped taking med Polyethylene Glycol 3350* (Miralax*), 17 GM ORAL DAILY PRN for Constipation, ( Reported) Discontinued Reason: Pt stopped taking med Temazepam* (Temazepam*), 30 MG ORAL BEDTIME PRN for Insomnia, (Reported) Discontinued Reason: Pt stopped taking med Trimethoprim/Sulfamethoxazole (Bactrim 400-80 mg Tablet), 1 TAB ORAL TWICE A DAY Discontinued Reason: Therapy completed Zolpidem Tartrate* (Zolpidem Tartrate*), 5 MG ORAL BEDTIME PRN for Insomnia, ( Reported) Discontinued Reason: Pt stopped taking med [Proheal Liquid], 30 ML ORAL TID, (Reported) Discontinued Reason: Pt stopped taking med Patient History Healthcare decision maker Resuscitation status Advanced Directive on File Past Medical/Surgical History Past Medical/Surgical History: (1) Pressure ulcer (2) Hypothyroidism (3) Dementia (4) Dementia arising in the senium and presenium Review of Systems All Other Systems: negative except mentioned in HPI Physical Exam General Appearance: WD/WN Lines, tubes and drains: central line HEENT: normocephalic Neck: non-tender Respiratory/Chest: chest wall non-tender, normal breath sounds Breasts: no masses Cardiovascular/Chest: normal rate Abdomen: normal bowel sounds, non tender Genitourinary/Rectal: normal genital exam Skin Exam: other - right toe Last 24 Hour Vital Signs Date Time Temp Pulse Resp B/P (MAP) Pulse Ox O2 Delivery O2 Flow Rate FiO2 02/22/18 17:45 65 157/74 02/22/18 16:38 97.0 83 16 180/81 96 Room Air 97.0 02/22/18 14:14 97.9 61 18 126/84 94 Room Air 97.9 Laboratory Tests Test 02/22/18 14:50 02/22/18 15:00 White Blood Count 7.8 K/UL (4.8-10.8) Red Blood Count 3.96 M/UL (4.20-5.40) L Hemoglobin 11.7 G/DL (12.0-16.0) L Hematocrit 36.3 % (37.0-47.0) L Mean Corpuscular Volume 92 FL (80-99) Mean Corpuscular Hemoglobin 29.6 PG (27.0-31.0) Mean Corpuscular Hemoglobin Concent 32.2 G/DL (32.0-36.0) Red Cell Distribution Width 11.1 % (11.6-14.8) L Platelet Count 295 K/UL (150-450) Mean Platelet Volume 7.9 FL (6.5-10.1) Neutrophils (%) (Auto) 63.0 % (45.0-75.0) Lymphocytes (%) (Auto) 26.5 % (20.0-45.0) Monocytes (%) (Auto) 7.9 % (1.0-10.0) Eosinophils (%) (Auto) 1.9 % (0.0-3.0) Basophils (%) (Auto) 0.7 % (0.0-2.0) Sodium Level 136 MMOL/L (136-145) Potassium Level 4.4 MMOL/L (3.5-5.1) Chloride Level 102 MMOL/L (98-107) Carbon Dioxide Level 27 MMOL/L (21-32) Anion Gap 7 mmol/L (5-15) Blood Urea Nitrogen 13 mg/dL (7-18) Creatinine 0.7 MG/DL (0.55-1.30) Estimat Glomerular Filtration Rate mL/min (>60) Glucose Level 104 MG/DL (74-106) Lactic Acid Level 1.40 mmol/L (0.66-2.22) Calcium Level 9.5 MG/DL (8.5-10.1) Total Bilirubin 0.7 MG/DL (0.2-1.0) Aspartate Amino Transf (AST/SGOT) 18 U/L (15-37) Alanine Aminotransferase (ALT/SGPT) 15 U/L (12-78) Alkaline Phosphatase 107 U/L (46-116) Total Protein 7.8 G/DL (6.4-8.2) Albumin 2.7 G/DL (3.4-5.0) L Globulin 5.1 g/dL Albumin/Globulin Ratio 0.5 (1.0-2.7) L Urine Color Brown Urine Appearance Slightly cloudy Urine pH 7 (4.5-8.0) Urine Specific [place] 1.015 (1.005-1.035) Urine Protein 2+ (NEGATIVE) H Urine Glucose (UA) Negative (NEGATIVE) Urine Ketones 1+ (NEGATIVE) H Urine Occult Blood 1+ (NEGATIVE) H Urine Nitrite Negative (NEGATIVE) Urine Bilirubin 1+ (NEGATIVE) H Urine Ictotest Negative Urine Urobilinogen 8 MG/DL (0.0-1.0) H Urine Leukocyte Esterase 3+ (NEGATIVE) H Urine RBC 2-4 /HPF (0 - 2) H Urine WBC 5-10 /HPF (0 - 2) H Urine Squamous Epithelial Cells Few /LPF (NONE/OCC) Urine Amorphous Sediment Few /LPF (NONE) H Urine Bacteria Many /HPF (NONE) H Height (Feet): 5 Height (Inches): 3.00 Weight (Pounds): 110 Medications Current Medications Medications (Trade) Dose Ordered Sig/Kal[place] Route PRN Reason Start Time Stop Time Status Last Admin Dose Admin Acetaminophen (Tylenol) 650 mg Q4H PRN ORAL fever 02/22/18 19:00 03/24/18 18:59 Albuterol/ Ipratropium (Albuterol/ Ipratropium) 3 ml EVERY 4 HOURS PRN HHN Shortness of Breath 02/22/18 19:00 02/27/18 18:59 Alprazolam (Xanax) 0.25 mg DAILY ORAL 02/23/18 09:00 03/02/18 08:59 Cefepime HCl 2 gm/ Dextrose 110 ml @ 220 mls/hr Q24H IV 02/22/18 20:00 03/01/18 19:59 02/22/18 21:30 Dextrose (Dextrose 50%) STAT PRN IV Hypoglycemia 02/22/18 19:00 03/24/18 18:59 Escitalopram Oxalate (Lexapro) 5 mg DAILY ORAL 02/23/18 09:00 03/25/18 08:59 Heparin Sodium (Porcine) (Heparin 5000 units/ml) 5,000 units EVERY 12 HOURS SUBQ 02/22/18 21:00 03/24/18 20:59 02/22/18 21:11 Levothyroxine Sodium (Synthroid) 50 mcg DAILY ORAL 02/23/18 09:00 03/25/18 08:59 Nifedipine (Procardia XL) 30 mg DAILY ORAL 02/23/18 09:00 03/25/18 08:59 Nitroglycerin (Ntg) 0.4 mg Q 5 MINS PRN SL Prn Chest Pain 02/22/18 19:00 03/24/18 18:59 Ondansetron HCl (Zofran) 4 mg Q6H PRN IVP Nausea & Vomiting 02/22/18 19:00 03/24/18 18:59 Polyethylene Glycol (Miralax) 17 gm DAILYPRN PRN ORAL Constipation 02/22/18 19:00 03/24/18 18:59 Temazepam (Restoril) 15 mg HSPRN PRN ORAL Insomnia 02/22/18 19:00 03/01/18 18:59 Vancomycin HCl 1 gm/Dextrose 275 ml @ 183.3 mls/ hr Q24H IVPB 02/23/18 09:00 02/28/18 08:59 Assessment/Plan Problem List: (1) Cellulitis of toe ICD Codes: L03.039 - Cellulitis of unspecified toe SNOMED: 80149132 Qualifiers: Qualified Codes: L03.031 - Cellulitis of right toe (2) Hypothyroidism ICD Codes: E03.9 - Hypothyroidism, unspecified SNOMED: 66297061 (3) Dementia ICD Codes: F03.90 - Unspecified dementia without behavioral disturbance SNOMED: 51630039 Assessment/Plan iv abx wound care ID to evaluate podiatry to see monitor BP dvt prophylaxis Jessica Amador MD February 22, 2018 21:38
[2018-02-22 23:53] VITALS: BP 134/78
[2018-02-23 04:00] VITALS: BP 140/83
[2018-02-23 08:16] LABS: ALANINE AMINOTRANSFERASE 10 U/L (12-78); ALBUMIN 2.4 G/DL (3.4-5.0); ALBUMIN/GLOBULIN RATIO 0.5 (1.0-2.7); ALKALINE PHOSPHATASE 95 U/L (46-116); ANION GAP 10 mmol/L (5-15); ASPARTATE AMINO TRANSFERASE 16 U/L (15-37); BASOPHILS % (AUTO) 0.6 % (0.0-2.0); BILIRUBIN,TOTAL 0.7 MG/DL (0.2-1.0); BLOOD UREA NITROGEN 10 mg/dL (7-18); CALCIUM 9.1 MG/DL (8.5-10.1); CARBON DIOXIDE 25 MMOL/L (21-32); CHLORIDE 101 MMOL/L (98-107); CREATININE 0.6 MG/DL (0.55-1.30); EOSINOPHILS % (AUTO) 2.1 % (0.0-3.0); HEMATOCRIT 31.9 % (37.0-47.0); HEMOGLOBIN 10.7 G/DL (12.0-16.0); MEAN CORPUSCULAR VOLUME 91 FL (80-99); MONOCYTES % (AUTO) 4.9 % (1.0-10.0); NEUTROPHILS % (AUTO) 65.2 % (45.0-75.0); PLATELET COUNT 258 K/UL (150-450); RED BLOOD COUNT 3.52 M/UL (4.20-5.40); SODIUM 136 MMOL/L (136-145); WHITE BLOOD COUNT 6.4 K/UL (4.8-10.8)
[2018-02-23] MEDS: Vancomycin 1 GM in D5W 275 ML IVPB SCH (08:25)
[2018-02-23 08:26] VITALS: BP 142/43
[2018-02-23] MEDS: Heparin 5000 units/ml inj SUBQ SCH ×2 (08:26→21:22)
[2018-02-23] MEDS: ALPRAZolam 0.25mg tab ORAL SCH (08:27)
[2018-02-23 11:49] VITALS: BP 113/58
--- NOTE | 2018-02-23 14:30 | Pulmonology Progress Note ---
Assessment/Plan Problems: (1) Cellulitis of toe (2) Dementia (3) Hypothyroidism Assessment/Plan continue abx check cultures wound care all notes reviewed meds reviewed Subjective ROS Limited/Unobtainable: Yes Constitutional: Reports: no symptoms Allergies: Coded Allergies: No Known Allergies (Unverified , 11/26/16) Objective Last 24 Hour Vital Signs Date Time Temp Pulse Resp B/P (MAP) Pulse Ox O2 Delivery O2 Flow Rate FiO2 02/23/18 11:49 98.0 76 18 113/58 94 98.0 02/23/18 08:26 98.8 60 18 142/43 97 98.8 02/23/18 08:26 66 140/83 02/23/18 04:00 97.0 66 17 140/83 98 Room Air 97.0 02/22/18 23:53 96.6 63 17 134/78 98 Room Air 96.6 02/22/18 20:45 97.8 68 18 145/71 98 Room Air 97.8 02/22/18 20:45 97.0 65 16 157/74 96 Room Air 97.0 02/22/18 20:30 97.5 59 18 126/62 96 Room Air 97.5 02/22/18 17:45 65 157/74 02/22/18 16:38 97.0 83 16 180/81 96 Room Air 97.0 Intake and Output 02/22/18 02/23/18 19:00 07:00 Intake Total 250 ml 170 ml Output Total 60 ml Balance 190 ml 170 ml Intake Oral 60 ml IV Total 250 ml 110 ml Output Urine Total 60 ml # Voids 4 General Appearance: WD/WN HEENT: normocephalic, atraumatic Respiratory/Chest: chest wall non-tender, normal breath sounds Breasts: no masses Cardiovascular: normal rate Abdomen: normal bowel sounds, soft, non tender, no scars Genitourinary: normal external genitalia Skin: no rash Microbiology Date/Time Source Procedure Growth Status 02/22/18 15:00 Other Gram Stain - Final Resulted 02/22/18 15:00 Other Wound Culture Pending Resulted 02/22/18 15:00 Urine,Clean Catch Urine Culture - Preliminary Resulted Laboratory Tests 02/22/18 14:50: White Blood Count 7.8, Red Blood Count 3.96L, Hemoglobin 11.7L, Hematocrit 36.3L , Mean Corpuscular Volume 92, Mean Corpuscular Hemoglobin 29.6, Mean Corpuscular Hemoglobin Concent 32.2, Red Cell Distribution Width 11.1L, Platelet Count 295, Mean Platelet Volume 7.9, Neutrophils (%) (Auto) 63.0, Lymphocytes (%) (Auto) 26.5, Monocytes (%) (Auto) 7.9, Eosinophils (%) (Auto) 1.9, Basophils (%) (Auto) 0.7, Sodium Level 136, Potassium Level 4.4, Chloride Level 102, Carbon Dioxide Level 27, Anion Gap 7, Blood Urea Nitrogen 13, Creatinine 0.7, Estimat Glomerular Filtration Rate , Glucose Level 104, Lactic Acid Level 1.40, Calcium Level 9.5, Total Bilirubin 0.7, Aspartate Amino Transf (AST/SGOT) 18, Alanine Aminotransferase (ALT/SGPT) 15, Alkaline Phosphatase 107 , Total Protein 7.8, Albumin 2.7L, Globulin 5.1, Albumin/Globulin Ratio 0.5L 02/22/18 15:00: Urine Color Brown, Urine Appearance Slightly cloudy, Urine pH 7, Urine Specific [place] 1.015, Urine Protein 2+H, Urine Glucose (UA) Negative, Urine Ketones 1+H , Urine Occult Blood 1+H, Urine Nitrite Negative, Urine Bilirubin 1+H, Urine Ictotest Negative, Urine Urobilinogen 8H, Urine Leukocyte Esterase 3+H, Urine RBC 2-4H, Urine WBC 5-10H, Urine Squamous Epithelial Cells Few, Urine Amorphous Sediment FewH, Urine Bacteria ManyH 02/23/18 06:42: White Blood Count 6.4, Red Blood Count 3.52L, Hemoglobin 10.7L, Hematocrit 31.9L , Mean Corpuscular Volume 91, Mean Corpuscular Hemoglobin 30.5, Mean Corpuscular Hemoglobin Concent 33.6, Red Cell Distribution Width 11.0L, Platelet Count 258, Mean Platelet Volume 7.4, Neutrophils (%) (Auto) 65.2, Lymphocytes (%) (Auto) 27.0, Monocytes (%) (Auto) 4.9, Eosinophils (%) (Auto) 2.1, Basophils (%) (Auto) 0.6, Sodium Level 136, Potassium Level 4.0, Chloride Level 101, Carbon Dioxide Level 25, Anion Gap 10, Blood Urea Nitrogen 10, Creatinine 0.6, Estimat Glomerular Filtration Rate , Glucose Level 86, Calcium Level 9.1, Total Bilirubin 0.7, Aspartate Amino Transf (AST/SGOT) 16, Alanine Aminotransferase (ALT/SGPT) 10L, Alkaline Phosphatase 95, Total Protein 7.2, Albumin 2.4L, Globulin 4.8, Albumin/Globulin Ratio 0.5L Current Medications Medications (Trade) Dose Ordered Sig/[place] Route PRN Reason Start Time Stop Time Status Last Admin Dose Admin Acetaminophen (Tylenol) 650 mg Q4H PRN ORAL fever 02/22/18 19:00 03/24/18 18:59 Albuterol/ Ipratropium (Albuterol/ Ipratropium) 3 ml EVERY 4 HOURS PRN HHN Shortness of Breath 02/22/18 19:00 02/27/18 18:59 Alprazolam (Xanax) 0.25 mg DAILY ORAL 02/23/18 09:00 03/02/18 08:59 02/23/18 08:27 Cefepime HCl 2 gm/ Dextrose 110 ml @ 220 mls/hr Q24H IV 02/22/18 20:00 03/01/18 19:59 02/22/18 21:30 Dextrose (Dextrose 50%) STAT PRN IV Hypoglycemia 02/22/18 19:00 03/24/18 18:59 Escitalopram Oxalate (Lexapro) 5 mg DAILY ORAL 02/23/18 09:00 03/25/18 08:59 02/23/18 08:25 Heparin Sodium (Porcine) (Heparin 5000 units/ml) 5,000 units EVERY 12 HOURS SUBQ 02/22/18 21:00 03/24/18 20:59 02/23/18 08:26 Levothyroxine Sodium (Synthroid) 50 mcg DAILY ORAL 02/23/18 09:00 03/25/18 08:59 02/23/18 08:27 Nifedipine (Procardia XL) 30 mg DAILY ORAL 02/23/18 09:00 03/25/18 08:59 02/23/18 08:26 Nitroglycerin (Ntg) 0.4 mg Q 5 MINS PRN SL Prn Chest Pain 02/22/18 19:00 03/24/18 18:59 Ondansetron HCl (Zofran) 4 mg Q6H PRN IVP Nausea & Vomiting 02/22/18 19:00 03/24/18 18:59 Polyethylene Glycol (Miralax) 17 gm DAILYPRN PRN ORAL Constipation 02/22/18 19:00 03/24/18 18:59 Temazepam (Restoril) 15 mg HSPRN PRN ORAL Insomnia 02/22/18 19:00 03/01/18 18:59 Vancomycin HCl 1 gm/Dextrose 275 ml @ 183.3 mls/ hr Q24H IVPB 02/23/18 09:00 02/28/18 08:59 02/23/18 08:25 Jessica Amador MD February 23, 2018 14:30
[2018-02-23 15:43] VITALS: BP 102/76
--- NOTE | 2018-02-23 17:21 | Consultation ---
History of Present Illness General Date patient seen: February 22, 2018 Chief Complaint: Lower Extremity Injury Present Illness HPI 87-year-old female presents ED for evaluation of swelling to the right big toe. the pt has anxiety and dementia. the pt was unable to provide hx. the pt is confused and has some anxiety Allergies: Coded Allergies: No Known Allergies (Unverified , 11/26/16) Medication History Scheduled Ascorbic Acid* (Vitamin C*), 500 MG ORAL DAILY, (Reported) Dextran 70/Hypromellose (Artificial Tears Eye Drops*), 1 DROP RIGHT EYE FOUR TIMES A DAY, (Reported) Dextran 70/Hypromellose (Artificial Tears Eye Drops*), 1 DROP LEFT EYE BID, ( Reported) Escitalopram Oxalate* (Lexapro*), 5 MG ORAL DAILY, (Reported) Escitalopram Oxalate* (Lexapro*), 5 MG ORAL DAILY, (Reported) Levothyroxine Sodium* (Levothyroxine Sodium*), 50 MCG ORAL DAILY, (Reported) Nifedipine Er* (Nifedipine Er*), 30 MG ORAL DAILY, (Reported) Warfarin Sod* (Coumadin*), 3 MG ORAL DAILY, (Reported) Scheduled PRN Acetaminophen (Acetaminophen), 650 MG ORAL Q4HR PRN for Prn Headache/Temp > 101, (Reported) Acetaminophen* (Acetaminophen 325MG Tablet*), 650 MG ORAL Q4H PRN for Mild Pain/ Temp > 100.5, (Reported) Discontinued Medications Alprazolam* (Xanax*), 0.25 MG ORAL DAILY, (Reported) Discontinued Reason: Pt stopped taking med Hydrochlorothiazide* (Hydrochlorothiazide*), 12.5 MG ORAL DAILY, (Reported) Discontinued Reason: Pt stopped taking med Multivitamin With Minerals (Multivitamins With Minerals*), 1 TAB ORAL DAILY, ( Reported) Discontinued Reason: Pt stopped taking med Naproxen* (Naproxen*), 375 MG ORAL TWICE A DAY, (Reported) Discontinued Reason: Pt stopped taking med Polyethylene Glycol 3350* (Miralax*), 17 GM ORAL DAILY PRN for Constipation, ( Reported) Discontinued Reason: Pt stopped taking med Temazepam* (Temazepam*), 30 MG ORAL BEDTIME PRN for Insomnia, (Reported) Discontinued Reason: Pt stopped taking med Trimethoprim/Sulfamethoxazole (Bactrim 400-80 mg Tablet), 1 TAB ORAL TWICE A DAY Discontinued Reason: Therapy completed Zolpidem Tartrate* (Zolpidem Tartrate*), 5 MG ORAL BEDTIME PRN for Insomnia, ( Reported) Discontinued Reason: Pt stopped taking med [Proheal Liquid], 30 ML ORAL TID, (Reported) Discontinued Reason: Pt stopped taking med Patient History Limited by: medical condition History Provided By: Patient, Medical Record, PMD Healthcare decision maker jakub martinezy-son Resuscitation status Full Code Advanced Directive on File No Past Medical/Surgical History Past Medical/Surgical History: (1) Cellulitis (2) Facial contusion (3) Anxiety (4) Depression (5) Cervical arthritis (6) Dementia (7) Fall (8) Laceration (9) Skin tear (10) Hypothyroidism (11) Dementia arising in the senium and presenium (12) Dementia (13) Altered mental status (14) History of DVT (deep vein thrombosis) (15) Cellulitis of toe (16) Ulcer of toe (17) UTI (urinary tract infection) (18) Acute encephalopathy Review of Systems Psychiatric: Reports: prior hx, anxiety, depressed feelings, emotional problems Physical Exam General Appearance: WD/WN, no apparent distress, alert, confused, agitated Last 24 Hour Vital Signs Date Time Temp Pulse Resp B/P (MAP) Pulse Ox O2 Delivery O2 Flow Rate FiO2 02/23/18 15:43 98.6 80 18 102/76 97 98.6 02/23/18 11:49 98.0 76 18 113/58 94 98.0 02/23/18 08:26 98.8 60 18 142/43 97 98.8 02/23/18 08:26 66 140/83 02/23/18 04:00 97.0 66 17 140/83 98 Room Air 97.0 02/22/18 23:53 96.6 63 17 134/78 98 Room Air 96.6 02/22/18 20:45 97.8 68 18 145/71 98 Room Air 97.8 02/22/18 20:45 97.0 65 16 157/74 96 Room Air 97.0 02/22/18 20:30 97.5 59 18 126/62 96 Room Air 97.5 02/22/18 17:45 65 157/74 Intake and Output 02/22/18 02/23/18 19:00 07:00 Intake Total 250 ml 170 ml Output Total 60 ml Balance 190 ml 170 ml Intake Oral 60 ml IV Total 250 ml 110 ml Output Urine Total 60 ml # Voids 4 Laboratory Tests Test 02/23/18 06:42 White Blood Count 6.4 K/UL (4.8-10.8) Red Blood Count 3.52 M/UL (4.20-5.40) L Hemoglobin 10.7 G/DL (12.0-16.0) L Hematocrit 31.9 % (37.0-47.0) L Mean Corpuscular Volume 91 FL (80-99) Mean Corpuscular Hemoglobin 30.5 PG (27.0-31.0) Mean Corpuscular Hemoglobin Concent 33.6 G/DL (32.0-36.0) Red Cell Distribution Width 11.0 % (11.6-14.8) L Platelet Count 258 K/UL (150-450) Mean Platelet Volume 7.4 FL (6.5-10.1) Neutrophils (%) (Auto) 65.2 % (45.0-75.0) Lymphocytes (%) (Auto) 27.0 % (20.0-45.0) Monocytes (%) (Auto) 4.9 % (1.0-10.0) Eosinophils (%) (Auto) 2.1 % (0.0-3.0) Basophils (%) (Auto) 0.6 % (0.0-2.0) Sodium Level 136 MMOL/L (136-145) Potassium Level 4.0 MMOL/L (3.5-5.1) Chloride Level 101 MMOL/L (98-107) Carbon Dioxide Level 25 MMOL/L (21-32) Anion Gap 10 mmol/L (5-15) Blood Urea Nitrogen 10 mg/dL (7-18) Creatinine 0.6 MG/DL (0.55-1.30) Estimat Glomerular Filtration Rate mL/min (>60) Glucose Level 86 MG/DL (74-106) Calcium Level 9.1 MG/DL (8.5-10.1) Total Bilirubin 0.7 MG/DL (0.2-1.0) Aspartate Amino Transf (AST/SGOT) 16 U/L (15-37) Alanine Aminotransferase (ALT/SGPT) 10 U/L (12-78) L Alkaline Phosphatase 95 U/L (46-116) Total Protein 7.2 G/DL (6.4-8.2) Albumin 2.4 G/DL (3.4-5.0) L Globulin 4.8 g/dL Albumin/Globulin Ratio 0.5 (1.0-2.7) L Height (Feet): 5 Height (Inches): 3.00 Weight (Pounds): 130 Medications Current Medications Medications (Trade) Dose Ordered Sig/Kalen Route PRN Reason Start Time Stop Time Status Last Admin Dose Admin Acetaminophen (Tylenol) 650 mg Q4H PRN ORAL fever 02/22/18 19:00 03/24/18 18:59 Albuterol/ Ipratropium (Albuterol/ Ipratropium) 3 ml EVERY 4 HOURS PRN HHN Shortness of Breath 02/22/18 19:00 02/27/18 18:59 Alprazolam (Xanax) 0.25 mg DAILY ORAL 02/23/18 09:00 03/02/18 08:59 02/23/18 08:27 Cefepime HCl 2 gm/ Dextrose 110 ml @ 220 mls/hr Q24H IV 02/22/18 20:00 03/01/18 19:59 02/22/18 21:30 Dextrose (Dextrose 50%) STAT PRN IV Hypoglycemia 02/22/18 19:00 03/24/18 18:59 Escitalopram Oxalate (Lexapro) 5 mg DAILY ORAL 02/23/18 09:00 03/25/18 08:59 02/23/18 08:25 Heparin Sodium (Porcine) (Heparin 5000 units/ml) 5,000 units EVERY 12 HOURS SUBQ 02/22/18 21:00 03/24/18 20:59 02/23/18 08:26 Levothyroxine Sodium (Synthroid) 50 mcg DAILY ORAL 02/23/18 09:00 03/25/18 08:59 02/23/18 08:27 Nifedipine (Procardia XL) 30 mg DAILY ORAL 02/23/18 09:00 03/25/18 08:59 02/23/18 08:26 Nitroglycerin (Ntg) 0.4 mg Q 5 MINS PRN SL Prn Chest Pain 02/22/18 19:00 03/24/18 18:59 Ondansetron HCl (Zofran) 4 mg Q6H PRN IVP Nausea & Vomiting 02/22/18 19:00 03/24/18 18:59 Polyethylene Glycol (Miralax) 17 gm DAILYPRN PRN ORAL Constipation 02/22/18 19:00 03/24/18 18:59 Temazepam (Restoril) 15 mg HSPRN PRN ORAL Insomnia 02/22/18 19:00 03/01/18 18:59 Vancomycin HCl 1 gm/Dextrose 275 ml @ 183.3 mls/ hr Q24H IVPB 02/23/18 09:00 02/28/18 08:59 02/23/18 08:25 Assessment/Plan Assessment/Plan dementia with behavioral dist anxiety ativan prn Sebastian Steel M.D. February 23, 2018 17:21
[2018-02-23] MEDS ORDERED: LORazepam 0.5mg tab ORAL PRN (17:30)
--- NOTE | 2018-02-23 18:53 | Consultation ---
History of Present Illness General Date patient seen: February 23, 2018 Chief Complaint: Lower Extremity Injury Present Illness HPI 87 y/o F with hx of Dementia, dysphagia, anxiety, skilled nursing resident presents to ED on 02/22 with R 1st toe swelling Afebrile, no leukocytosis. Allergies: Coded Allergies: No Known Allergies (Unverified , 11/26/16) Medication History Scheduled Ascorbic Acid* (Vitamin C*), 500 MG ORAL DAILY, (Reported) Dextran 70/Hypromellose (Artificial Tears Eye Drops*), 1 DROP RIGHT EYE FOUR TIMES A DAY, (Reported) Dextran 70/Hypromellose (Artificial Tears Eye Drops*), 1 DROP LEFT EYE BID, ( Reported) Escitalopram Oxalate* (Lexapro*), 5 MG ORAL DAILY, (Reported) Escitalopram Oxalate* (Lexapro*), 5 MG ORAL DAILY, (Reported) Levothyroxine Sodium* (Levothyroxine Sodium*), 50 MCG ORAL DAILY, (Reported) Nifedipine Er* (Nifedipine Er*), 30 MG ORAL DAILY, (Reported) Warfarin Sod* (Coumadin*), 3 MG ORAL DAILY, (Reported) Scheduled PRN Acetaminophen (Acetaminophen), 650 MG ORAL Q4HR PRN for Prn Headache/Temp > 101, (Reported) Acetaminophen* (Acetaminophen 325MG Tablet*), 650 MG ORAL Q4H PRN for Mild Pain/ Temp > 100.5, (Reported) Discontinued Medications Alprazolam* (Xanax*), 0.25 MG ORAL DAILY, (Reported) Discontinued Reason: Pt stopped taking med Hydrochlorothiazide* (Hydrochlorothiazide*), 12.5 MG ORAL DAILY, (Reported) Discontinued Reason: Pt stopped taking med Multivitamin With Minerals (Multivitamins With Minerals*), 1 TAB ORAL DAILY, ( Reported) Discontinued Reason: Pt stopped taking med Naproxen* (Naproxen*), 375 MG ORAL TWICE A DAY, (Reported) Discontinued Reason: Pt stopped taking med Polyethylene Glycol 3350* (Miralax*), 17 GM ORAL DAILY PRN for Constipation, ( Reported) Discontinued Reason: Pt stopped taking med Temazepam* (Temazepam*), 30 MG ORAL BEDTIME PRN for Insomnia, (Reported) Discontinued Reason: Pt stopped taking med Trimethoprim/Sulfamethoxazole (Bactrim 400-80 mg Tablet), 1 TAB ORAL TWICE A DAY Discontinued Reason: Therapy completed Zolpidem Tartrate* (Zolpidem Tartrate*), 5 MG ORAL BEDTIME PRN for Insomnia, ( Reported) Discontinued Reason: Pt stopped taking med [Proheal Liquid], 30 ML ORAL TID, (Reported) Discontinued Reason: Pt stopped taking med Patient History Healthcare decision maker damon martinez-son Resuscitation status Full Code Advanced Directive on File No Patient History Narrative Pmhx: as above Shx: Denies smoking, alcohol use, drug use Fhx: non contributory Review of Systems ROS Narrative unable to obtain due to dementia Physical Exam Physical Exam Narrative General Appearance: no apparent distress, thin, other - dementia Head: normocephalic Eyes: bilateral eye normal inspection, bilateral eye PERRL ENT: normal ENT inspection Neck: normal inspection Respiratory: chest non-tender, lungs clear, normal breath sounds, speaking full sentences Cardiovascular #1: regular rate, rhythm, no edema Gastrointestinal: normal bowel sounds, non tender, soft, non-distended, no guarding, no rebound Rectal: deferred Genitourinary: no CVA tenderness Musculoskeletal: swelling - R big toe. erythematous/swollen Neurologic: other - dementia Psychiatric: other - dementia Skin: other - 2x2cm ulceration to base of R big toe Lymphatic: normal inspection Last 24 Hour Vital Signs Date Time Temp Pulse Resp B/P (MAP) Pulse Ox O2 Delivery O2 Flow Rate FiO2 02/23/18 15:43 98.6 80 18 102/76 97 98.6 02/23/18 11:49 98.0 76 18 113/58 94 98.0 02/23/18 08:26 98.8 60 18 142/43 97 98.8 02/23/18 08:26 66 140/83 02/23/18 04:00 97.0 66 17 140/83 98 Room Air 97.0 02/22/18 23:53 96.6 63 17 134/78 98 Room Air 96.6 02/22/18 20:45 97.8 68 18 145/71 98 Room Air 97.8 02/22/18 20:45 97.0 65 16 157/74 96 Room Air 97.0 02/22/18 20:30 97.5 59 18 126/62 96 Room Air 97.5 Intake and Output 02/22/18 02/23/18 19:00 07:00 Intake Total 250 ml 170 ml Output Total 60 ml Balance 190 ml 170 ml Intake Oral 60 ml IV Total 250 ml 110 ml Output Urine Total 60 ml # Voids 4 Laboratory Tests Test 02/23/18 06:42 White Blood Count 6.4 K/UL (4.8-10.8) Red Blood Count 3.52 M/UL (4.20-5.40) L Hemoglobin 10.7 G/DL (12.0-16.0) L Hematocrit 31.9 % (37.0-47.0) L Mean Corpuscular Volume 91 FL (80-99) Mean Corpuscular Hemoglobin 30.5 PG (27.0-31.0) Mean Corpuscular Hemoglobin Concent 33.6 G/DL (32.0-36.0) Red Cell Distribution Width 11.0 % (11.6-14.8) L Platelet Count 258 K/UL (150-450) Mean Platelet Volume 7.4 FL (6.5-10.1) Neutrophils (%) (Auto) 65.2 % (45.0-75.0) Lymphocytes (%) (Auto) 27.0 % (20.0-45.0) Monocytes (%) (Auto) 4.9 % (1.0-10.0) Eosinophils (%) (Auto) 2.1 % (0.0-3.0) Basophils (%) (Auto) 0.6 % (0.0-2.0) Sodium Level 136 MMOL/L (136-145) Potassium Level 4.0 MMOL/L (3.5-5.1) Chloride Level 101 MMOL/L (98-107) Carbon Dioxide Level 25 MMOL/L (21-32) Anion Gap 10 mmol/L (5-15) Blood Urea Nitrogen 10 mg/dL (7-18) Creatinine 0.6 MG/DL (0.55-1.30) Estimat Glomerular Filtration Rate mL/min (>60) Glucose Level 86 MG/DL (74-106) Calcium Level 9.1 MG/DL (8.5-10.1) Total Bilirubin 0.7 MG/DL (0.2-1.0) Aspartate Amino Transf (AST/SGOT) 16 U/L (15-37) Alanine Aminotransferase (ALT/SGPT) 10 U/L (12-78) L Alkaline Phosphatase 95 U/L (46-116) Total Protein 7.2 G/DL (6.4-8.2) Albumin 2.4 G/DL (3.4-5.0) L Globulin 4.8 g/dL Albumin/Globulin Ratio 0.5 (1.0-2.7) L Height (Feet): 5 Height (Inches): 3.00 Weight (Pounds): 130 Medications Current Medications Medications (Trade) Dose Ordered Sig/Kalen Route PRN Reason Start Time Stop Time Status Last Admin Dose Admin Acetaminophen (Tylenol) 650 mg Q4H PRN ORAL fever 02/22/18 19:00 03/24/18 18:59 Albuterol/ Ipratropium (Albuterol/ Ipratropium) 3 ml EVERY 4 HOURS PRN HHN Shortness of Breath 02/22/18 19:00 02/27/18 18:59 Alprazolam (Xanax) 0.25 mg DAILY ORAL 02/23/18 09:00 03/02/18 08:59 02/23/18 08:27 Cefepime HCl 2 gm/ Dextrose 110 ml @ 220 mls/hr Q24H IV 02/22/18 20:00 03/01/18 19:59 02/22/18 21:30 Dextrose (Dextrose 50%) STAT PRN IV Hypoglycemia 02/22/18 19:00 03/24/18 18:59 Escitalopram Oxalate (Lexapro) 5 mg DAILY ORAL 02/23/18 09:00 03/25/18 08:59 02/23/18 08:25 Heparin Sodium (Porcine) (Heparin 5000 units/ml) 5,000 units EVERY 12 HOURS SUBQ 02/22/18 21:00 03/24/18 20:59 02/23/18 08:26 Levothyroxine Sodium (Synthroid) 50 mcg DAILY ORAL 02/23/18 09:00 03/25/18 08:59 02/23/18 08:27 Lorazepam (Ativan) 1 mg Q6H PRN ORAL For Anxiety 02/23/18 17:30 03/02/18 17:29 Nifedipine (Procardia XL) 30 mg DAILY ORAL 02/23/18 09:00 03/25/18 08:59 02/23/18 08:26 Nitroglycerin (Ntg) 0.4 mg Q 5 MINS PRN SL Prn Chest Pain 02/22/18 19:00 03/24/18 18:59 Ondansetron HCl (Zofran) 4 mg Q6H PRN IVP Nausea & Vomiting 02/22/18 19:00 03/24/18 18:59 Polyethylene Glycol (Miralax) 17 gm DAILYPRN PRN ORAL Constipation 02/22/18 19:00 03/24/18 18:59 Temazepam (Restoril) 15 mg HSPRN PRN ORAL Insomnia 02/22/18 19:00 03/01/18 18:59 Vancomycin HCl 1 gm/Dextrose 275 ml @ 183.3 mls/ hr Q24H IVPB 02/23/18 09:00 02/28/18 08:59 02/23/18 08:25 Assessment/Plan Assessment/Plan Abx: IV Vanco 02/22- Cefepime 02/22- Assessment: R 1st toe infected ulcer- r/o OM -R foot xray: There is severe osteoporosis. No obvious acute fracture is identified. There is an old fracture of the base of the fifth metatarsal and the shaft. Subluxation of the first interphalangeal joint noted. Had hallux valgus deformity demonstrated. Soft tissue swelling is present. Afebrile, no leukocytosis -u/a wbc 5-10, nit neg, leuk +3 Dementia dysphagia anxiety skilled nursing resident Plan: -Continue IV Vancomycin #2 and switch Cefepime #2 to Unasyn pending wound cx -ESR, CRP -f/u cx -Monitor CBC/BMP, temperatures -aspiration precautions -wound care/prevention per hosp protocol -podiatry eval Thank you for this consultation. Will continue to follow along with you. Discussed with ALDA. Nancy Mckenzie M.D. February 23, 2018 18:53
[2018-02-23] MEDS: Cefepime HCl 2 GM in D5W 110 ML IV SCH (19:56)
[2018-02-23 20:00] VITALS: BP 148/77
[2018-02-23] MEDS: Ampicillin/Sulbactam Sod 3 GM in NS 110 ML IVPB SCH (21:18)
--- NOTE | 2018-02-23 22:31 | Consultation ---
DATE OF CONSULTATION: 02/23/2018 HEMATOLOGY/ONCOLOGY CONSULTATION CONSULTING PHYSICIAN: Laura Lu M.D. REFERRING PHYSICIAN: Jessica Amador M.D. REASON FOR CONSULTATION: Lower extremity chronic deep venous thrombosis and anemia and ulceration of lower extremities. HISTORY OF PRESENT ILLNESS: The patient is an 87-year-old, unfortunate elderly female with multitude of medical problems apparently. Unfortunately, the patient is a poor historian and I am unable to obtain any history from the patient. History has been primarily obtained from nursing staff as well as evaluation of the patient's nursing notes. The patient apparently resides in a nursing facility. The patient has apparent past history of thrombosis of lower extremities. The patient has been treated with anticoagulation with Coumadin. Apparently, she has been receiving 3 mg oral Coumadin. The patient does have a history of hypertension, on nifedipine, as well as hypothyroidism, and has been on Lexapro. The patient has been admitted to the hospital with apparent worsening ulceration of the left lower extremity with erythema. Upon evaluation, the patient has also been noted to be anemic during hospitalization. Unfortunately, I cannot obtain much history from the patient. The data is quite limited. Upon evaluation on 02/22/2018, the patient was noted to have white count of 7.8, hemoglobin of 11.7, and platelet count 295. The patient has undergone a venous duplex of lower extremities at [facility]. This study has demonstrated evidence of a thrombus that was noted in the right lower extremity involving the deep system, however, they are noted to be chronic in nature. Unfortunately, I cannot be clear when the patient's last actual acute deep venous thrombosis has been. The patient has had a past history of hypercoagulable state or pulmonary emboli. The patient is not hypoxic at this point in time. The patient does not have any arrhythmias here in the hospital. PAST MEDICAL HISTORY: 1. Poor historian, questionable dementia. 2. Lower extremity ulceration. 3. Significant flexion of upper and lower extremities with inability to ambulate. 4. Hypothyroidism. 5. Hypertension. 6. Chronic anticoagulation. 7. Chronic deep venous thrombosis of lower extremity per report. PAST SURGICAL HISTORY: Unable to obtain from patient. The patient, however, does have a surgical scar on the lower abdomen. MEDICATIONS: Have been noted on the electronic medical records. ALLERGIES: Have been noted on electronic medical records. FAMILY HISTORY: Unable to obtain from the patient. SOCIAL HISTORY: The patient apparently resides in a nursing facility, however, unable to obtain from the patient. Family is not at the bedside. REVIEW OF SYSTEMS: Unable to obtain any history from the patient. The patient is awake and does not even answer to my question in [place]an asking if she has pain. PHYSICAL EXAMINATION: GENERAL: The patient is awake, however, does not answer questions. VITAL SIGNS: Blood pressure 126/84, pulse 51, temperature 97.9 degrees, and pulse oximetry is approximately 94%. HEAD AND NECK: Sclerae anicteric. CHEST: Decreased breath sounds at the bases. CARDIAC: Regular rhythm. S1 and S2. ABDOMEN: Soft, nontender, and nondistended. There is a questionable, well-healed scar in lower abdominal area. EXTREMITIES: All extremities, four extremities are flexed. There is ulceration on both lower extremities, however, mostly involving distal feet. The left foot did demonstrate left lower extremity was in dressing and the dressing was taken off. The patient was noted to have significant ulceration of the left toe at the bottom of the foot. The toe was completely red and swollen and seemed to be somewhat tender as well. LYMPHATICS: No palpable adenopathy. BREASTS: Done by the public address system installer at the bedside, i.e., the nurse. The patient does have some nodularity of the right breast with no discrete masses. Left breast negative, possibly somewhat diminished in lower extremities. LABORATORY AND DIAGNOSTIC DATA: UA did demonstrate evidence of 5 to 10 white blood cells. Urine nitrites negative. Imaging studies noted. The patient did undergo a foot x-ray with no evidence of acute injury, limited evaluation due to severe osteoporosis. Past medical history of significant osteoporosis. This was of the right foot. Old fracture of the base of the fifth metatarsal and the shaft was noted. It should be noted the patient's laboratory data from outside facility noted the patient's INR was noted to be somewhat elevated. As of 02/21/2018, INR was 1.23. As of 02/17/2018, it was noted to be 4.17. As of 02/10/2018, it was 2.53. Apparently, based on the patient's elevated Coumadin noted on 02/17/2018, the patient's Coumadin was held and INR was rechecked. The patient has been noted to have a low albumin of 3.3 at the nursing facility. It seems like the patient had hemoglobin of 11.5 as of 01/12/2018. The patient differential done at the nursing facility was noted to be within range with a hemoglobin A1c of 5.0. ASSESSMENT AND PLAN: 1. Deep venous thrombosis of lower extremities. The patient's duplex has been done here at [facility], which based on the report does demonstrate evidence of chronic thrombus, noted in superficial and deep systems of the right leg. Unfortunately, I am unable to obtain any history from the patient . The patient has had right lower extremity deep venous thrombosis. If the patient has been treated for over 3 to 4 months at this point in time, my recommendation would be for the patient to come off anticoagulation. In light of fact that the patient is very sedentary, consideration for serial duplexes can be made. If patient does develop acute thrombus at that point in time, consideration for chronic anticoagulation can be made. I am not sure if the anticoagulation the patient has been done is due to chronic thrombosis. This will be further discussed with Dr. Amador. The patient does not have any etiology. In light of the fact that lower extremity thrombosis is chronic, I would consider discontinuing the patient's warfarin. Hopefully, I will confirm with Dr. Amador to make sure patient has more than 3 months of anticoagulation. At this point in time, the patient is not tachycardic, is not presenting with any signs and symptoms of shortness of breath. Hold off on V/Q scan. The patient has any tachycardia or shortness of breath, V/Q scan should be done. Consideration for evaluation of the D-dimer can be made if necessary. 2. Anemia, mild. The patient's iron and ferritin can be evaluated. The patient's stool occult blood can be done. 3. Code status. Per my report the patient is DNR. 4. Ulceration of the left lower extremity with erythema. Consider arterial duplex of the lower extremities. I will defer this to Dr. Amador. The patient also does have erythema in that area. Consideration for treating with antibiotics can be made. The patient should be evaluated by podiatry during hospitalization. 5. Mild nodularity in the right breast. In light of patient's age of 87, the fact that the patient is fully sedentary, it would be very difficult to obtain a mammogram in this patient. Hold off on any imaging studies at this time. I will defer to primary care physician to continue serial breast examinations. If there is worsening, consideration of her breast ultrasound can be made. Laura Lu M.D. DR: MICHAEL JOB#: [id number] CC:
[2018-02-24] VITALS: BP 145/70
[2018-02-24 04:00] VITALS: BP 132/67
[2018-02-24] MEDS: Ampicillin/Sulbactam Sod 3 GM in NS 110 ML IVPB SCH ×3 (05:10→17:04)
[2018-02-24 08:00] VITALS: BP 118/63
[2018-02-24 08:06] LABS: INR 1.1 (0.9-1.1)
[2018-02-24 08:20] LABS: BASOPHILS % (AUTO) 0.9 % (0.0-2.0); HEMATOCRIT 30.6 % (37.0-47.0); HEMOGLOBIN 10.6 G/DL (12.0-16.0); MEAN CORPUSCULAR VOLUME 90 FL (80-99); MONOCYTES % (AUTO) 6.5 % (1.0-10.0); NEUTROPHILS % (AUTO) 53.6 % (45.0-75.0); PLATELET COUNT 281 K/UL (150-450); RED CELL DISTRIBUTION WIDTH 10.9 % (11.6-14.8); WHITE BLOOD COUNT 4.8 K/UL (4.8-10.8)
[2018-02-24 08:40] LABS: LACTATE DEHYDROGENASE 126 U/L (81-234)
[2018-02-24] MEDS: ALPRAZolam 0.25mg tab ORAL SCH (08:54)
[2018-02-24] MEDS: Heparin 5000 units/ml inj SUBQ SCH ×2 (08:56→21:28)
[2018-02-24] MEDS: Vancomycin 1 GM in D5W 275 ML IVPB SCH (08:58)
[2018-02-24 09:07] LABS: % IRON SATURATION 30 % (15-50); IRON 43 ug/dL (50-175); TOTAL IRON BINDING CAPACITY 145 ug/dL (250-450)
[2018-02-24 12:00] VITALS: BP 114/59
--- NOTE | 2018-02-24 12:08 | General Progress Note ---
Assessment/Plan Assessment/Plan dementia with behavioral dist anxiety ativan prn Subjective Date patient seen: Feb 24, 2018 Neurologic/Psychiatric: Reports: anxiety, depressed, emotional problems Allergies: Coded Allergies: No Known Allergies (Unverified , 11/26/16) Objective Last 24 Hour Vital Signs Date Time Temp Pulse Resp B/P (MAP) Pulse Ox O2 Delivery O2 Flow Rate FiO2 02/24/18 08:55 84 118/63 02/24/18 08:21 84 18 Room Air 02/24/18 08:00 97.5 69 20 118/63 96 97.5 02/24/18 04:00 96 Room Air 02/24/18 04:00 98.1 69 17 132/67 96 98.1 02/24/18 00:00 98 Room Air 02/24/18 00:00 97.5 86 17 145/70 98 97.5 02/23/18 21:33 82 16 Room Air 02/23/18 20:00 97.7 82 17 148/77 97.7 02/23/18 15:43 98.6 80 18 102/76 97 98.6 Intake and Output 02/23/18 02/24/18 19:00 07:00 Intake Total 735.0 ml 330 ml Balance 735.0 ml 330 ml Intake Oral 460 ml IV Total 275.0 ml 330 ml # Voids 5 Laboratory Tests 02/24/18 06:22: Iron Level 43L, Total Iron Binding Capacity 145L, Percent Iron Saturation 30, Unsaturated Iron Binding 102L, Lactate Dehydrogenase 126, C-Reactive Protein, Quantitative 4.8H, Carcinoembryonic Antigen [Pending], Vitamin B12 Level 339, Folate 6.2L 02/24/18 07:15: White Blood Count 4.8, Red Blood Count 3.40L, Hemoglobin 10.6L, Hematocrit 30.6L , Mean Corpuscular Volume 90, Mean Corpuscular Hemoglobin 31.2H, Mean Corpuscular Hemoglobin Concent 34.7, Red Cell Distribution Width 10.9L, Platelet Count 281, Mean Platelet Volume 7.6, Neutrophils (%) (Auto) 53.6, Lymphocytes (%) (Auto) 36.0, Monocytes (%) (Auto) 6.5, Eosinophils (%) (Auto) 3.0, Basophils (%) (Auto) 0.9, Differential Total Cells Counted 100, Neutrophils % (Manual) 55, Lymphocytes % (Manual) 32, Monocytes % (Manual) 8, Eosinophils % (Manual) 5H, Basophils % (Manual) 0, Band Neutrophils 0, Platelet Estimate Adequate, Platelet Morphology Normal, Red Blood Cell Morphology Normal , Erythrocyte Sedimentation Rate 61H, Reticulocyte Count 1.2 02/24/18 07:22: Prothrombin Time 11.4, Prothromb Time International Ratio 1.1, Activated Partial Thromboplast Time 29 Height (Feet): 5 Height (Inches): 3.00 Weight (Pounds): 130 General Appearance: WD/WN, no apparent distress, alert Sebastian Steel M.D. Feb 24, 2018 12:08
--- NOTE | 2018-02-24 14:13 | Podiatric Progress Note ---
Assessment/Plan Patient Lexy Rose is a 87 year old female who was admitted on February 22, 2018 at 18:00 with Problems: (1) Pressure ulcer Assessment/Plan Patient with R sub hallux wound with palpable bone and crepitus to IPJ stable witn no sign of acute infection. Continue local wound care Subjective Reason for consult Ulceration to the R big toe. Allergies: Coded Allergies: No Known Allergies (Unverified , 11/26/16) Subjective This is a 87 y.o alf admitted to [facility] for Ulceration to the R big toe. Patient was seen at bedside with NAD. Objective Exam Last 24 Hour Vital Signs Date Time Temp Pulse Resp B/P (MAP) Pulse Ox O2 Delivery O2 Flow Rate FiO2 02/24/18 12:00 97.3 71 20 114/59 98 97.3 02/24/18 08:55 84 118/63 02/24/18 08:21 84 18 Room Air 02/24/18 08:00 97.5 69 20 118/63 96 97.5 02/24/18 04:00 96 Room Air 02/24/18 04:00 98.1 69 17 132/67 96 98.1 02/24/18 00:00 98 Room Air 02/24/18 00:00 97.5 86 17 145/70 98 97.5 02/23/18 21:33 82 16 Room Air 02/23/18 20:00 97.7 82 17 148/77 97.7 02/23/18 15:43 98.6 80 18 102/76 97 98.6 Laboratory Tests Test 02/24/18 06:22 02/24/18 07:15 02/24/18 07:22 Iron Level 43 ug/dL (50-175) L Total Iron Binding Capacity 145 ug/dL (250-450) L Percent Iron Saturation 30 % (15-50) Unsaturated Iron Binding 102 ug/dL (112-346) L Lactate Dehydrogenase 126 U/L (81-234) C-Reactive Protein, Quantitative 4.8 mg/dL (0.00-0.90) H Carcinoembryonic Antigen Pending Vitamin B12 Level 339 PG/ML (193-986) Folate 6.2 NG/ML (8.6-58.9) L White Blood Count 4.8 K/UL (4.8-10.8) Red Blood Count 3.40 M/UL (4.20-5.40) L Hemoglobin 10.6 G/DL (12.0-16.0) L Hematocrit 30.6 % (37.0-47.0) L Mean Corpuscular Volume 90 FL (80-99) Mean Corpuscular Hemoglobin 31.2 PG (27.0-31.0) H Mean Corpuscular Hemoglobin Concent 34.7 G/DL (32.0-36.0) Red Cell Distribution Width 10.9 % (11.6-14.8) L Platelet Count 281 K/UL (150-450) Mean Platelet Volume 7.6 FL (6.5-10.1) Neutrophils (%) (Auto) 53.6 % (45.0-75.0) Lymphocytes (%) (Auto) 36.0 % (20.0-45.0) Monocytes (%) (Auto) 6.5 % (1.0-10.0) Eosinophils (%) (Auto) 3.0 % (0.0-3.0) Basophils (%) (Auto) 0.9 % (0.0-2.0) Differential Total Cells Counted 100 Neutrophils % (Manual) 55 % (45-75) Lymphocytes % (Manual) 32 % (20-45) Monocytes % (Manual) 8 % (1-10) Eosinophils % (Manual) 5 % (0-3) H Basophils % (Manual) 0 % (0-2) Band Neutrophils 0 % (0-8) Platelet Estimate Adequate Platelet Morphology Normal Red Blood Cell Morphology Normal Erythrocyte Sedimentation Rate 61 MM/HR (0-30) H Reticulocyte Count 1.2 % (0.0-2.0) Prothrombin Time 11.4 SEC (9.30-11.50) Prothromb Time International Ratio 1.1 (0.9-1.1) Activated Partial Thromboplast Time 29 SEC (23-33) Microbiology Date/Time Source Procedure Growth Status 02/22/18 15:00 Blood Blood Culture - Preliminary NO GROWTH AFTER 24 HOURS Resulted 02/22/18 15:00 Other Gram Stain - Final Resulted 02/22/18 15:00 Wound Culture - Preliminary Staphylococcus Aureus Diphtheroids Resulted 02/22/18 15:00 Urine,Clean Catch Urine Culture - Preliminary Strep Species, Alpha Hemolytic Resulted 02/22/18 17:00 Rectum VRE Culture - Final 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 Complete General Appearance: no apparent distress Musculoskeletal Muscle strength grading: grade 5 Musculoskeletal Patient is BB contracted Vascular Pulses: 0 posterior tibial (R), 0 posterior tibial (L), 0 popliteal (R), 0 popliteal (L); 1 dorsalis pedis (R), 1 dorsalis pedis (L) Edema: no edema noted foot (L), no edema noted foot (R), no edema noted ankle ( L), no edema noted ankle (R), no edema noted leg (L), no edema noted leg (R) Pedal hair present: No Visible vascular abnormality: telangiectasia Temperature: within normal limits Neurological Light touch: sensate bilateral Reflexes: 2+ achilles reflex s1 (R), 2+ achilles reflex s1 (L), 2+ achilles reflex s2 (R), 2+ achilles reflex s2 (L) Dermatological Wound Assessment : Wound location: right, toe Wound Length (mm): 3.0 Wound Width (mm): 2.8 Wound Depth: to bone Garcia Classification: 3 deep abcess or osteomye Pressure ulcer stage: IV Non viable tissue type: loose adh, yellow slough Probes to bone: Yes Exudate Amount: None Malodor: none/absent Skin Surrounding Wound: intact Blanchable discoloration: No Temperature: within normal limits Cleansing Solution/Irrigant: normal saline, other Cream/ointment: other Offloading: none JALEEL MAY Feb 24, 2018 14:12
[2018-02-24 16:00] VITALS: BP 126/65
[2018-02-24] MEDS ORDERED: Gadavist 7.5mMol/7.5ml vial IV PRN (18:15)
--- NOTE | 2018-02-24 18:15 | Infectious Diseases Prog Note ---
Assessment/Plan Assessment/Plan Abx: IV Vanco 02/22- Cefepime 02/22- Assessment: R 1st toe infected ulcer- r/o OM -R foot xray: There is severe osteoporosis. No obvious acute fracture is identified. There is an old fracture of the base of the fifth metatarsal and the shaft. Subluxation of the first interphalangeal joint noted. Had hallux valgus deformity demonstrated. Soft tissue swelling is present. -ESR 61, CRP 8 -wound cx S. aureus (sensi pending), diptheroids Afebrile, no leukocytosis -u/a wbc 5-10, nit neg, leuk +3 Dementia dysphagia anxiety residential resident Plan: -Continue IV Vancomycin #3 and Unasyn abx d#3 pending wound cx -02/23 SP Cefepime #2 -MRI R foot to eval for OM -f/u cx -Monitor CBC/BMP, temperatures -aspiration precautions -wound care/prevention per hosp protocol -podiatry f/u Thank you for this consultation. Will continue to follow along with you. Discussed with RN. Subjective Allergies: Coded Allergies: No Known Allergies (Unverified , 11/26/16) Subjective afebrile no leukocytosis Objective Vital Signs Last 24 Hour Vital Signs Date Time Temp Pulse Resp B/P (MAP) Pulse Ox O2 Delivery O2 Flow Rate FiO2 02/24/18 16:00 97.3 66 20 126/65 97 97.3 02/24/18 12:00 97.3 71 20 114/59 98 97.3 02/24/18 08:55 84 118/63 02/24/18 08:21 84 18 Room Air 02/24/18 08:00 97.5 69 20 118/63 96 97.5 02/24/18 04:00 96 Room Air 02/24/18 04:00 98.1 69 17 132/67 96 98.1 02/24/18 00:00 98 Room Air 02/24/18 00:00 97.5 86 17 145/70 98 97.5 02/23/18 21:33 82 16 Room Air 02/23/18 20:00 97.7 82 17 148/77 97.7 Height (Feet): 5 Height (Inches): 3.00 Weight (Pounds): 130 Objective General Appearance: no apparent distress, thin, other - dementia Head: normocephalic Eyes: bilateral eye normal inspection, bilateral eye PERRL ENT: normal ENT inspection Neck: normal inspection Respiratory: chest non-tender, lungs clear, normal breath sounds, speaking full sentences Cardiovascular regular rate, rhythm, no edema Gastrointestinal: normal bowel sounds, non tender, soft, non-distended, no guarding, no rebound Musculoskeletal: swelling - R big toe. erythematous/swollen w. ulcer on dorsal aspect and purulent discharge Microbiology Date/Time Source Procedure Growth Status 02/22/18 15:00 Blood Blood Culture - Preliminary NO GROWTH AFTER 24 HOURS Resulted 02/22/18 14:50 Blood Blood Culture - Preliminary NO GROWTH AFTER 24 HOURS Resulted 02/22/18 15:00 Other Gram Stain - Final Resulted 02/22/18 15:00 Wound Culture - Preliminary Staphylococcus Aureus Diphtheroids Resulted 02/22/18 15:00 Urine,Clean Catch Urine Culture - Preliminary Strep Species, Alpha Hemolytic Resulted 02/22/18 17:00 Rectum VRE Culture - Final 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 Complete Laboratory Tests Test 02/24/18 06:22 02/24/18 07:15 02/24/18 07:22 Iron Level 43 ug/dL (50-175) L Total Iron Binding Capacity 145 ug/dL (250-450) L Percent Iron Saturation 30 % (15-50) Unsaturated Iron Binding 102 ug/dL (112-346) L Lactate Dehydrogenase 126 U/L (81-234) C-Reactive Protein, Quantitative 4.8 mg/dL (0.00-0.90) H Carcinoembryonic Antigen Pending Vitamin B12 Level 339 PG/ML (193-986) Folate 6.2 NG/ML (8.6-58.9) L White Blood Count 4.8 K/UL (4.8-10.8) Red Blood Count 3.40 M/UL (4.20-5.40) L Hemoglobin 10.6 G/DL (12.0-16.0) L Hematocrit 30.6 % (37.0-47.0) L Mean Corpuscular Volume 90 FL (80-99) Mean Corpuscular Hemoglobin 31.2 PG (27.0-31.0) H Mean Corpuscular Hemoglobin Concent 34.7 G/DL (32.0-36.0) Red Cell Distribution Width 10.9 % (11.6-14.8) L Platelet Count 281 K/UL (150-450) Mean Platelet Volume 7.6 FL (6.5-10.1) Neutrophils (%) (Auto) 53.6 % (45.0-75.0) Lymphocytes (%) (Auto) 36.0 % (20.0-45.0) Monocytes (%) (Auto) 6.5 % (1.0-10.0) Eosinophils (%) (Auto) 3.0 % (0.0-3.0) Basophils (%) (Auto) 0.9 % (0.0-2.0) Differential Total Cells Counted 100 Neutrophils % (Manual) 55 % (45-75) Lymphocytes % (Manual) 32 % (20-45) Monocytes % (Manual) 8 % (1-10) Eosinophils % (Manual) 5 % (0-3) H Basophils % (Manual) 0 % (0-2) Band Neutrophils 0 % (0-8) Other Cell Type Platelet Estimate Adequate Platelet Morphology Normal Red Blood Cell Morphology Normal Erythrocyte Sedimentation Rate 61 MM/HR (0-30) H Reticulocyte Count 1.2 % (0.0-2.0) Prothrombin Time 11.4 SEC (9.30-11.50) Prothromb Time International Ratio 1.1 (0.9-1.1) Activated Partial Thromboplast Time 29 SEC (23-33) Current Medications Medications (Trade) Dose Ordered Sig/Kalen Route PRN Reason Start Time Stop Time Status Last Admin Dose Admin Acetaminophen (Tylenol) 650 mg Q4H PRN ORAL fever 02/22/18 19:00 03/24/18 18:59 Albuterol/ Ipratropium (Albuterol/ Ipratropium) 3 ml EVERY 4 HOURS PRN HHN Shortness of Breath 02/22/18 19:00 02/27/18 18:59 Alprazolam (Xanax) 0.25 mg DAILY ORAL 02/23/18 09:00 03/02/18 08:59 02/24/18 08:54 Ampicillin Sodium/ Sulbactam Sodium 3 gm/Sodium Chloride 110 ml @ 220 mls/hr Q6HR IVPB 02/23/18 21:30 03/02/18 21:29 02/24/18 17:04 Dextrose (Dextrose 50%) STAT PRN IV Hypoglycemia 02/22/18 19:00 03/24/18 18:59 Escitalopram Oxalate (Lexapro) 5 mg DAILY ORAL 02/23/18 09:00 03/25/18 08:59 02/24/18 08:54 Heparin Sodium (Porcine) (Heparin 5000 units/ml) 5,000 units EVERY 12 HOURS SUBQ 02/22/18 21:00 03/24/18 20:59 02/24/18 08:56 Levothyroxine Sodium (Synthroid) 50 mcg DAILY ORAL 02/23/18 09:00 03/25/18 08:59 02/24/18 08:55 Lorazepam (Ativan) 1 mg Q6H PRN ORAL For Anxiety 02/23/18 17:30 03/02/18 17:29 Nifedipine (Procardia XL) 30 mg DAILY ORAL 02/23/18 09:00 03/25/18 08:59 02/24/18 08:55 Nitroglycerin (Ntg) 0.4 mg Q 5 MINS PRN SL Prn Chest Pain 02/22/18 19:00 03/24/18 18:59 Ondansetron HCl (Zofran) 4 mg Q6H PRN IVP Nausea & Vomiting 02/22/18 19:00 03/24/18 18:59 Polyethylene Glycol (Miralax) 17 gm DAILYPRN PRN ORAL Constipation 02/22/18 19:00 03/24/18 18:59 Temazepam (Restoril) 15 mg HSPRN PRN ORAL Insomnia 02/22/18 19:00 03/01/18 18:59 Vancomycin HCl 1 gm/Dextrose 275 ml @ 183.3 mls/ hr Q24H IVPB 02/23/18 09:00 02/28/18 08:59 02/24/18 08:58 Nancy Mckenzie M.D. Feb 24, 2018 18:15
[2018-02-24 19:41] VITALS: BP 146/79
--- NOTE | 2018-02-24 20:10 | Pulmonology Progress Note ---
Assessment/Plan Problems: (1) Cellulitis of toe (2) Bacteremia (3) Dementia (4) Hypothyroidism Assessment/Plan continue abx check sensitivity of the cultures check electrolytes tolerating diet symptomatic treatment dvt prophylaxis. Subjective ROS Limited/Unobtainable: Yes Allergies: Coded Allergies: No Known Allergies (Unverified , 11/26/16) Objective Last 24 Hour Vital Signs Date Time Temp Pulse Resp B/P (MAP) Pulse Ox O2 Delivery O2 Flow Rate FiO2 02/24/18 20:04 81 18 Room Air 02/24/18 19:41 97.3 81 18 146/79 97 Room Air 97.3 02/24/18 16:00 97.3 66 20 126/65 97 97.3 02/24/18 12:00 97.3 71 20 114/59 98 97.3 02/24/18 08:55 84 118/63 02/24/18 08:21 84 18 Room Air 02/24/18 08:00 97.5 69 20 118/63 96 97.5 02/24/18 04:00 96 Room Air 02/24/18 04:00 98.1 69 17 132/67 96 98.1 02/24/18 00:00 98 Room Air 02/24/18 00:00 97.5 86 17 145/70 98 97.5 02/23/18 21:33 82 16 Room Air Intake and Output 02/23/18 02/24/18 19:00 07:00 Intake Total 735.0 ml 330 ml Balance 735.0 ml 330 ml Intake Oral 460 ml IV Total 275.0 ml 330 ml # Voids 5 General Appearance: WD/WN HEENT: normocephalic, atraumatic Respiratory/Chest: chest wall non-tender, lungs clear Breasts: no masses Cardiovascular: normal peripheral pulses, normal rate Abdomen: normal bowel sounds, soft, non tender Genitourinary: normal external genitalia Extremities: no cyanosis Skin: no rash Microbiology Date/Time Source Procedure Growth Status 02/22/18 15:00 Blood Blood Culture - Preliminary NO GROWTH AFTER 24 HOURS Resulted 02/22/18 14:50 Blood Blood Culture - Preliminary NO GROWTH AFTER 24 HOURS Resulted 02/22/18 15:00 Other Gram Stain - Final Resulted 02/22/18 15:00 Wound Culture - Preliminary Staphylococcus Aureus Diphtheroids Resulted 02/22/18 15:00 Urine,Clean Catch Urine Culture - Preliminary Strep Species, Alpha Hemolytic Resulted 02/22/18 17:00 Rectum VRE Culture - Final 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 Complete Laboratory Tests 02/24/18 06:22: Iron Level 43L, Total Iron Binding Capacity 145L, Percent Iron Saturation 30, Unsaturated Iron Binding 102L, Lactate Dehydrogenase 126, C-Reactive Protein, Quantitative 4.8H, Carcinoembryonic Antigen [Pending], Vitamin B12 Level 339, Folate 6.2L 02/24/18 07:15: White Blood Count 4.8, Red Blood Count 3.40L, Hemoglobin 10.6L, Hematocrit 30.6L , Mean Corpuscular Volume 90, Mean Corpuscular Hemoglobin 31.2H, Mean Corpuscular Hemoglobin Concent 34.7, Red Cell Distribution Width 10.9L, Platelet Count 281, Mean Platelet Volume 7.6, Neutrophils (%) (Auto) 53.6, Lymphocytes (%) (Auto) 36.0, Monocytes (%) (Auto) 6.5, Eosinophils (%) (Auto) 3.0, Basophils (%) (Auto) 0.9, Differential Total Cells Counted 100, Neutrophils % (Manual) 55, Lymphocytes % (Manual) 32, Monocytes % (Manual) 8, Eosinophils % (Manual) 5H, Basophils % (Manual) 0, Band Neutrophils 0, Other Cell Type , Platelet Estimate Adequate, Platelet Morphology Normal, Red Blood Cell Morphology Normal, Erythrocyte Sedimentation Rate 61H, Reticulocyte Count 1.2 02/24/18 07:22: Prothrombin Time 11.4, Prothromb Time International Ratio 1.1, Activated Partial Thromboplast Time 29 Current Medications Medications (Trade) Dose Ordered Sig/Kalen Route PRN Reason Start Time Stop Time Status Last Admin Dose Admin Acetaminophen (Tylenol) 650 mg Q4H PRN ORAL fever 02/22/18 19:00 03/24/18 18:59 Albuterol/ Ipratropium (Albuterol/ Ipratropium) 3 ml EVERY 4 HOURS PRN HHN Shortness of Breath 02/22/18 19:00 02/27/18 18:59 Alprazolam (Xanax) 0.25 mg DAILY ORAL 02/23/18 09:00 03/02/18 08:59 02/24/18 08:54 Ampicillin Sodium/ Sulbactam Sodium 3 gm/Sodium Chloride 110 ml @ 220 mls/hr Q6HR IVPB 02/23/18 21:30 03/02/18 21:29 02/24/18 17:04 Dextrose (Dextrose 50%) STAT PRN IV Hypoglycemia 02/22/18 19:00 03/24/18 18:59 Escitalopram Oxalate (Lexapro) 5 mg DAILY ORAL 02/23/18 09:00 03/25/18 08:59 02/24/18 08:54 Gadobutrol (Gadavist) 7.5 mmol NOW PRN IV Radiology Procedure 02/24/18 18:15 02/24/18 23:59 Heparin Sodium (Porcine) (Heparin 5000 units/ml) 5,000 units EVERY 12 HOURS SUBQ 02/22/18 21:00 03/24/18 20:59 02/24/18 08:56 Levothyroxine Sodium (Synthroid) 50 mcg DAILY ORAL 02/23/18 09:00 03/25/18 08:59 02/24/18 08:55 Lorazepam (Ativan) 1 mg Q6H PRN ORAL For Anxiety 02/23/18 17:30 03/02/18 17:29 Nifedipine (Procardia XL) 30 mg DAILY ORAL 02/23/18 09:00 03/25/18 08:59 02/24/18 08:55 Nitroglycerin (Ntg) 0.4 mg Q 5 MINS PRN SL Prn Chest Pain 02/22/18 19:00 03/24/18 18:59 Ondansetron HCl (Zofran) 4 mg Q6H PRN IVP Nausea & Vomiting 02/22/18 19:00 03/24/18 18:59 Polyethylene Glycol (Miralax) 17 gm DAILYPRN PRN ORAL Constipation 02/22/18 19:00 03/24/18 18:59 Temazepam (Restoril) 15 mg HSPRN PRN ORAL Insomnia 02/22/18 19:00 03/01/18 18:59 Vancomycin HCl 1 gm/Dextrose 275 ml @ 183.3 mls/ hr Q24H IVPB 02/23/18 09:00 02/28/18 08:59 02/24/18 08:58 Jessica Amador MD Feb 24, 2018 20:09
[2018-02-25] VITALS: BP 142/78
[2018-02-25] MEDS: Ampicillin/Sulbactam Sod 3 GM in NS 110 ML IVPB SCH ×4 (00:57→17:37)
[2018-02-25 04:00] VITALS: BP 135/74
[2018-02-25 08:00] VITALS: BP 127/56
[2018-02-25] MEDS: ALPRAZolam 0.25mg tab ORAL SCH (09:17)
[2018-02-25] MEDS: Heparin 5000 units/ml inj SUBQ SCH ×2 (09:19→21:45)
[2018-02-25] MEDS: Vancomycin 1 GM in D5W 275 ML IVPB SCH (09:54)
--- NOTE | 2018-02-25 10:02 | Infectious Diseases Prog Note ---
Assessment/Plan Assessment/Plan Abx: IV Vanco 02/22- Cefepime 02/22- Assessment: R 1st toe infected ulcer- r/o OM -R foot xray: There is severe osteoporosis. No obvious acute fracture is identified. There is an old fracture of the base of the fifth metatarsal and the shaft. Subluxation of the first interphalangeal joint noted. Had hallux valgus deformity demonstrated. Soft tissue swelling is present. -ESR 61, CRP 8 -wound cx S. aureus (sensi pending), diptheroids Gram positive bacteremia (real vs contaminant) -02/22 Bcx 1/ GPC clusters Afebrile, no leukocytosis -u/a wbc 5-10, nit neg, leuk +3 Dementia dysphagia anxiety residential resident Plan: -Continue IV Vancomycin #4 and Unasyn abx d#4 pending wound cx -02/23 SP Cefepime #2 -f/u MRI R foot to eval for OM -2 sets of Bcx -f/u cx -Monitor CBC/BMP, temperatures -aspiration precautions -wound care/prevention per hosp protocol -podiatry f/u Thank you for this consultation. Will continue to follow along with you. Discussed with RN. Subjective Allergies: Coded Allergies: No Known Allergies (Unverified , 11/26/16) Subjective afebrile no leukocytosis Bacteremic GPC clusters Objective Vital Signs Last 24 Hour Vital Signs Date Time Temp Pulse Resp B/P (MAP) Pulse Ox O2 Delivery O2 Flow Rate FiO2 02/25/18 09:18 86 127/56 02/25/18 08:06 86 18 Room Air 02/25/18 08:00 Room Air 02/25/18 08:00 97.2 77 19 127/56 98 97.2 02/25/18 04:00 97.5 63 19 135/74 96 97.5 02/25/18 00:00 97.2 68 18 142/78 97 97.2 02/24/18 20:04 81 18 Room Air 02/24/18 19:41 97.3 81 18 146/79 97 Room Air 97.3 02/24/18 16:00 97.3 66 20 126/65 97 97.3 02/24/18 12:00 97.3 71 20 114/59 98 97.3 Height (Feet): 5 Height (Inches): 3.00 Weight (Pounds): 130 Objective General Appearance: no apparent distress, thin, other - dementia Head: normocephalic Eyes: bilateral eye normal inspection, bilateral eye PERRL ENT: normal ENT inspection Neck: normal inspection Respiratory: chest non-tender, lungs clear, normal breath sounds, speaking full sentences Cardiovascular regular rate, rhythm, no edema Gastrointestinal: normal bowel sounds, non tender, soft, non-distended, no guarding, no rebound Musculoskeletal: swelling - R big toe. erythematous/swollen w. ulcer on dorsal aspect and purulent discharge Microbiology Date/Time Source Procedure Growth Status 02/22/18 15:00 Blood Blood Culture - Preliminary NO GROWTH AFTER 48 HOURS Resulted 02/22/18 14:50 Blood Blood Culture - Preliminary Resulted 02/22/18 15:00 Other Gram Stain - Final Resulted 02/22/18 15:00 Wound Culture - Preliminary Staphylococcus Aureus Diphtheroids Resulted 02/22/18 15:00 Urine,Clean Catch Urine Culture - Final Aerococcus Urinae Complete 02/22/18 17:00 Rectum VRE Culture - Final 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 Complete Laboratory Tests Test 02/25/18 08:41 Vancomycin Level Trough 14.4 ug/mL (5.0-12.0) H Current Medications Medications (Trade) Dose Ordered Sig/Kalen Route PRN Reason Start Time Stop Time Status Last Admin Dose Admin Acetaminophen (Tylenol) 650 mg Q4H PRN ORAL fever 02/22/18 19:00 03/24/18 18:59 Albuterol/ Ipratropium (Albuterol/ Ipratropium) 3 ml EVERY 4 HOURS PRN HHN Shortness of Breath 02/22/18 19:00 02/27/18 18:59 Alprazolam (Xanax) 0.25 mg DAILY ORAL 02/23/18 09:00 03/02/18 08:59 02/25/18 09:17 Ampicillin Sodium/ Sulbactam Sodium 3 gm/Sodium Chloride 110 ml @ 220 mls/hr Q6HR IVPB 02/23/18 21:30 03/02/18 21:29 02/25/18 05:21 Dextrose (Dextrose 50%) STAT PRN IV Hypoglycemia 02/22/18 19:00 03/24/18 18:59 Escitalopram Oxalate (Lexapro) 5 mg DAILY ORAL 02/23/18 09:00 03/25/18 08:59 02/25/18 09:17 Heparin Sodium (Porcine) (Heparin 5000 units/ml) 5,000 units EVERY 12 HOURS SUBQ 02/22/18 21:00 03/24/18 20:59 02/25/18 09:19 Levothyroxine Sodium (Synthroid) 50 mcg DAILY ORAL 02/23/18 09:00 03/25/18 08:59 02/25/18 09:18 Lorazepam (Ativan) 1 mg Q6H PRN ORAL For Anxiety 02/23/18 17:30 03/02/18 17:29 Nifedipine (Procardia XL) 30 mg DAILY ORAL 02/23/18 09:00 03/25/18 08:59 02/25/18 09:18 Nitroglycerin (Ntg) 0.4 mg Q 5 MINS PRN SL Prn Chest Pain 02/22/18 19:00 03/24/18 18:59 Ondansetron HCl (Zofran) 4 mg Q6H PRN IVP Nausea & Vomiting 02/22/18 19:00 03/24/18 18:59 Polyethylene Glycol (Miralax) 17 gm DAILYPRN PRN ORAL Constipation 02/22/18 19:00 03/24/18 18:59 Temazepam (Restoril) 15 mg HSPRN PRN ORAL Insomnia 02/22/18 19:00 03/01/18 18:59 Vancomycin HCl 1 gm/Dextrose 275 ml @ 183.3 mls/ hr Q24H IVPB 02/23/18 09:00 02/28/18 08:59 02/25/18 09:54 Nancy Mckenzie M.D. Feb 25, 2018 10:02
[2018-02-25 12:00] VITALS: BP 95/54
[2018-02-25 16:00] VITALS: BP 108/56
[2018-02-25] MEDS ORDERED: Tubing IV Secondary IV ONE (16:16)
[2018-02-25] MEDS ORDERED: NS 275ml ONE (16:16)
--- NOTE | 2018-02-25 16:29 | Pulmonology Progress Note ---
Assessment/Plan Problems: (1) Cellulitis of toe (2) Bacteremia (3) Dementia (4) Hypothyroidism Assessment/Plan d/w pts son at the bed site continue abx check sensitivity of the cultures check electrolytes tolerating diet symptomatic treatment dvt prophylaxis. Subjective ROS Limited/Unobtainable: No Constitutional: Reports: no symptoms HEENT: Repors: no symptoms Respiratory: Reports: no symptoms Allergies: Coded Allergies: No Known Allergies (Unverified , 11/26/16) Objective Last 24 Hour Vital Signs Date Time Temp Pulse Resp B/P (MAP) Pulse Ox O2 Delivery O2 Flow Rate FiO2 02/25/18 12:00 Room Air 02/25/18 12:00 98.6 81 20 95/54 93 98.6 02/25/18 09:18 86 127/56 02/25/18 08:06 86 18 Room Air 02/25/18 08:00 Room Air 02/25/18 08:00 97.2 77 19 127/56 98 97.2 02/25/18 04:00 97.5 63 19 135/74 96 97.5 02/25/18 00:00 97.2 68 18 142/78 97 97.2 02/24/18 20:04 81 18 Room Air 02/24/18 19:41 97.3 81 18 146/79 97 Room Air 97.3 Intake and Output 02/24/18 02/25/18 19:00 07:00 Intake Total 986.6 ml 220 ml Balance 986.6 ml 220 ml Intake Oral 180 ml IV Total 806.6 ml 220 ml # Voids 3 3 Objective General Appearance: WD/WN HEENT: normocephalic, atraumatic Respiratory/Chest: chest wall non-tender, lungs clear Breasts: no masses Cardiovascular: normal peripheral pulses, normal rate Abdomen: normal bowel sounds, soft, non tender Genitourinary: normal external genitalia Extremities: no cyanosis Microbiology Date/Time Source Procedure Growth Status 02/22/18 17:00 Rectum VRE Culture - Final 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 Complete Laboratory Tests 02/25/18 08:41: Vancomycin Level Trough 14.4H Current Medications Medications (Trade) Dose Ordered Sig/Kalen Route PRN Reason Start Time Stop Time Status Last Admin Dose Admin Acetaminophen (Tylenol) 650 mg Q4H PRN ORAL fever 02/22/18 19:00 03/24/18 18:59 Albuterol/ Ipratropium (Albuterol/ Ipratropium) 3 ml EVERY 4 HOURS PRN HHN Shortness of Breath 02/22/18 19:00 02/27/18 18:59 Alprazolam (Xanax) 0.25 mg DAILY ORAL 02/23/18 09:00 03/02/18 08:59 02/25/18 09:17 Ampicillin Sodium/ Sulbactam Sodium 3 gm/Sodium Chloride 110 ml @ 220 mls/hr Q6HR IVPB 02/23/18 21:30 03/02/18 21:29 02/25/18 12:14 Dextrose (Dextrose 50%) STAT PRN IV Hypoglycemia 02/22/18 19:00 03/24/18 18:59 Escitalopram Oxalate (Lexapro) 5 mg DAILY ORAL 02/23/18 09:00 03/25/18 08:59 02/25/18 09:17 Heparin Sodium (Porcine) (Heparin 5000 units/ml) 5,000 units EVERY 12 HOURS SUBQ 02/22/18 21:00 03/24/18 20:59 02/25/18 09:19 Levothyroxine Sodium (Synthroid) 50 mcg DAILY ORAL 02/23/18 09:00 03/25/18 08:59 02/25/18 09:18 Lorazepam (Ativan) 1 mg Q6H PRN ORAL For Anxiety 02/23/18 17:30 03/02/18 17:29 Nifedipine (Procardia XL) 30 mg DAILY ORAL 02/23/18 09:00 03/25/18 08:59 02/25/18 09:18 Nitroglycerin (Ntg) 0.4 mg Q 5 MINS PRN SL Prn Chest Pain 02/22/18 19:00 03/24/18 18:59 Ondansetron HCl (Zofran) 4 mg Q6H PRN IVP Nausea & Vomiting 02/22/18 19:00 03/24/18 18:59 Polyethylene Glycol (Miralax) 17 gm DAILYPRN PRN ORAL Constipation 02/22/18 19:00 03/24/18 18:59 Temazepam (Restoril) 15 mg HSPRN PRN ORAL Insomnia 02/22/18 19:00 03/01/18 18:59 Vancomycin HCl 1 gm/Dextrose 275 ml @ 183.3 mls/ hr Q24H IVPB 02/23/18 09:00 02/28/18 08:59 02/25/18 09:54 Jessica Amador MD Feb 25, 2018 16:29
[2018-02-25 19:36] VITALS: BP 135/51
--- NOTE | 2018-02-25 22:42 | General Progress Note ---
Assessment/Plan Assessment/Plan dementia with behavioral dist anxiety ativan prn Subjective Date patient seen: Feb 25, 2018 Neurologic/Psychiatric: Reports: anxiety, depressed, emotional problems Allergies: Coded Allergies: No Known Allergies (Unverified , 11/26/16) Objective Last 24 Hour Vital Signs Date Time Temp Pulse Resp B/P (MAP) Pulse Ox O2 Delivery O2 Flow Rate FiO2 02/25/18 19:36 97.9 69 16 135/51 95 Room Air 97.9 02/25/18 16:00 98.0 71 20 108/56 98 98.0 02/25/18 16:00 Room Air 02/25/18 12:00 Room Air 02/25/18 12:00 98.6 81 20 95/54 93 98.6 02/25/18 09:18 86 127/56 02/25/18 08:06 86 18 Room Air 02/25/18 08:00 Room Air 02/25/18 08:00 97.2 77 19 127/56 98 97.2 02/25/18 04:00 97.5 63 19 135/74 96 97.5 02/25/18 00:00 97.2 68 18 142/78 97 97.2 Intake and Output 02/24/18 02/25/18 19:00 07:00 Intake Total 986.6 ml 220 ml Balance 986.6 ml 220 ml Intake Oral 180 ml IV Total 806.6 ml 220 ml # Voids 3 3 Laboratory Tests 02/25/18 08:41: Vancomycin Level Trough 14.4H Height (Feet): 5 Height (Inches): 3.00 Weight (Pounds): 130 General Appearance: no apparent distress, alert, confused Sebastian Steel M.D. Feb 25, 2018 22:42
[2018-02-26] VITALS: BP 117/81
[2018-02-26] MEDS: Ampicillin/Sulbactam Sod 3 GM in NS 110 ML IVPB SCH ×5 (00:08→23:51)
[2018-02-26 04:00] VITALS: BP 112/59
[2018-02-26 08:00] VITALS: BP 117/54
[2018-02-26] MEDS: Vancomycin 1 GM in D5W 275 ML IVPB SCH (08:42)
[2018-02-26 08:47] LABS: ALANINE AMINOTRANSFERASE 12 U/L (12-78); ALBUMIN 2.3 G/DL (3.4-5.0); ALBUMIN/GLOBULIN RATIO 0.5 (1.0-2.7); ALKALINE PHOSPHATASE 85 U/L (46-116); ANION GAP 7 mmol/L (5-15); ASPARTATE AMINO TRANSFERASE 22 U/L (15-37); BILIRUBIN,TOTAL 0.5 MG/DL (0.2-1.0); BLOOD UREA NITROGEN 9 mg/dL (7-18); CALCIUM 8.9 MG/DL (8.5-10.1); CARBON DIOXIDE 27 MMOL/L (21-32); CHLORIDE 106 MMOL/L (98-107); CREATININE 0.7 MG/DL (0.55-1.30); PHOSPHORUS 2.5 MG/DL (2.5-4.9); POTASSIUM 3.3 MMOL/L (3.5-5.1); SODIUM 140 MMOL/L (136-145)
[2018-02-26] MEDS: ALPRAZolam 0.25mg tab ORAL SCH (08:52)
[2018-02-26] MEDS: Heparin 5000 units/ml inj SUBQ SCH ×2 (09:00→21:21)
[2018-02-26 10:10] LABS: BASOPHILS % (AUTO) 0.9 % (0.0-2.0); EOSINOPHILS % (AUTO) 3.3 % (0.0-3.0); HEMATOCRIT 28.8 % (37.0-47.0); HEMOGLOBIN 10.1 G/DL (12.0-16.0); LYMPHOCYTES % (AUTO) 40.8 % (20.0-45.0); MEAN CORPUSCULAR VOLUME 89 FL (80-99); MONOCYTES % (AUTO) 11.4 % (1.0-10.0); NEUTROPHILS % (AUTO) 43.5 % (45.0-75.0); PLATELET COUNT 257 K/UL (150-450); RED BLOOD COUNT 3.24 M/UL (4.20-5.40); RED CELL DISTRIBUTION WIDTH 10.5 % (11.6-14.8); WHITE BLOOD COUNT 4.4 K/UL (4.8-10.8)
--- NOTE | 2018-02-26 11:12 | Pulmonology Progress Note ---
Assessment/Plan Problems: (1) Cellulitis of toe (2) Bacteremia (3) Dementia (4) Hypothyroidism Assessment/Plan d/w pts son at the bed site continue abx check sensitivity of the cultures check electrolytes tolerating diet symptomatic treatment dvt prophylaxis. Subjective ROS Limited/Unobtainable: No Allergies: Coded Allergies: No Known Allergies (Unverified , 11/26/16) Objective Last 24 Hour Vital Signs Date Time Temp Pulse Resp B/P (MAP) Pulse Ox O2 Delivery O2 Flow Rate FiO2 02/26/18 08:51 71 117/54 02/26/18 08:00 97.2 71 20 117/54 96 Room Air 97.2 02/26/18 04:00 97.7 66 18 112/59 96 Room Air 97.7 02/26/18 00:00 97.3 62 18 117/81 96 Room Air 97.3 02/25/18 19:36 97.9 69 16 135/51 95 Room Air 97.9 02/25/18 19:11 80 20 Room Air 02/25/18 16:00 98.0 71 20 108/56 98 98.0 02/25/18 16:00 Room Air 02/25/18 12:00 Room Air 02/25/18 12:00 98.6 81 20 95/54 93 98.6 Intake and Output 02/25/18 02/26/18 19:00 07:00 Intake Total 715.0 ml 290 ml Balance 715.0 ml 290 ml Intake Oral 180 ml IV Total 715.0 ml 110 ml # Voids 2 3 Objective General Appearance: WD/WN HEENT: normocephalic, atraumatic Respiratory/Chest: chest wall non-tender, lungs clear Breasts: no masses Cardiovascular: normal peripheral pulses, normal rate Abdomen: normal bowel sounds, soft, non tender Genitourinary: normal external genitalia Extremities: no cyanosis Laboratory Tests 02/26/18 05:38: White Blood Count 4.4L, Red Blood Count 3.24L, Hemoglobin 10.1L, Hematocrit 28.8L, Mean Corpuscular Volume 89, Mean Corpuscular Hemoglobin 31.2H, Mean Corpuscular Hemoglobin Concent 35.1, Red Cell Distribution Width 10.5L, Platelet Count 257, Mean Platelet Volume 7.7, Neutrophils (%) (Auto) 43.5L, Lymphocytes (%) (Auto) 40.8, Monocytes (%) (Auto) 11.4H, Eosinophils (%) (Auto) 3.3H, Basophils (%) (Auto) 0.9, Erythrocyte Sedimentation Rate 53H, Sodium Level 140, Potassium Level 3.3L, Chloride Level 106, Carbon Dioxide Level 27, Anion Gap 7, Blood Urea Nitrogen 9, Creatinine 0.7, Estimat Glomerular Filtration Rate , Glucose Level 82, Calcium Level 8.9, Phosphorus Level 2.5, Magnesium Level 1.9, Total Bilirubin 0.5, Aspartate Amino Transf (AST/SGOT) 22, Alanine Aminotransferase (ALT/SGPT) 12, Alkaline Phosphatase 85, C-Reactive Protein, Quantitative 3.2H, Total Protein 6.9, Albumin 2.3L, Globulin 4.6, Albumin/Globulin Ratio 0.5L Current Medications Medications (Trade) Dose Ordered Sig/Kalen Route PRN Reason Start Time Stop Time Status Last Admin Dose Admin Acetaminophen (Tylenol) 650 mg Q4H PRN ORAL fever 02/22/18 19:00 03/24/18 18:59 Albuterol/ Ipratropium (Albuterol/ Ipratropium) 3 ml EVERY 4 HOURS PRN HHN Shortness of Breath 02/22/18 19:00 02/27/18 18:59 Alprazolam (Xanax) 0.25 mg DAILY ORAL 02/23/18 09:00 03/02/18 08:59 02/26/18 08:52 Ampicillin Sodium/ Sulbactam Sodium 3 gm/Sodium Chloride 110 ml @ 220 mls/hr Q6HR IVPB 02/23/18 21:30 03/02/18 21:29 02/26/18 06:01 Dextrose (Dextrose 50%) STAT PRN IV Hypoglycemia 02/22/18 19:00 03/24/18 18:59 Escitalopram Oxalate (Lexapro) 5 mg DAILY ORAL 02/23/18 09:00 03/25/18 08:59 02/26/18 08:52 Heparin Sodium (Porcine) (Heparin 5000 units/ml) 5,000 units EVERY 12 HOURS SUBQ 02/22/18 21:00 03/24/18 20:59 02/26/18 09:00 Levothyroxine Sodium (Synthroid) 50 mcg DAILY ORAL 02/23/18 09:00 03/25/18 08:59 02/26/18 08:51 Lorazepam (Ativan) 1 mg Q6H PRN ORAL For Anxiety 02/23/18 17:30 03/02/18 17:29 Nifedipine (Procardia XL) 30 mg DAILY ORAL 02/23/18 09:00 03/25/18 08:59 02/26/18 08:51 Nitroglycerin (Ntg) 0.4 mg Q 5 MINS PRN SL Prn Chest Pain 02/22/18 19:00 03/24/18 18:59 Ondansetron HCl (Zofran) 4 mg Q6H PRN IVP Nausea & Vomiting 02/22/18 19:00 03/24/18 18:59 Polyethylene Glycol (Miralax) 17 gm DAILYPRN PRN ORAL Constipation 02/22/18 19:00 03/24/18 18:59 Potassium Chloride 100 ml @ 100 mls/hr Q1HR IVPB 02/26/18 11:00 02/26/18 14:59 02/26/18 10:54 Temazepam (Restoril) 15 mg HSPRN PRN ORAL Insomnia 02/22/18 19:00 03/01/18 18:59 Vancomycin HCl 1 gm/Dextrose 275 ml @ 183.3 mls/ hr Q24H IVPB 02/23/18 09:00 02/28/18 08:59 02/26/18 08:42 Jessica Amador MD Feb 26, 2018 11:12
[2018-02-26] MEDS ORDERED: NS 275ml ONE (11:14)
[2018-02-26 12:00] VITALS: BP 119/59
--- NOTE | 2018-02-26 15:41 | Internal Med Progress Note ---
Subjective Date of Service: Feb 26, 2018 Physician Name Dean Garnica Attending Physician Reinier Cruz MD Current Medications Medications (Trade) Dose Ordered Sig/Kalen Route PRN Reason Start Time Stop Time Status Last Admin Dose Admin Acetaminophen (Tylenol) 650 mg Q4H PRN ORAL fever 02/22/18 19:00 03/24/18 18:59 Albuterol/ Ipratropium (Albuterol/ Ipratropium) 3 ml EVERY 4 HOURS PRN HHN Shortness of Breath 02/22/18 19:00 02/27/18 18:59 Alprazolam (Xanax) 0.25 mg DAILY ORAL 02/23/18 09:00 03/02/18 08:59 02/26/18 08:52 Ampicillin Sodium/ Sulbactam Sodium 3 gm/Sodium Chloride 110 ml @ 220 mls/hr Q6HR IVPB 02/23/18 21:30 03/02/18 21:29 02/26/18 13:03 Dextrose (Dextrose 50%) STAT PRN IV Hypoglycemia 02/22/18 19:00 03/24/18 18:59 Escitalopram Oxalate (Lexapro) 5 mg DAILY ORAL 02/23/18 09:00 03/25/18 08:59 02/26/18 08:52 Heparin Sodium (Porcine) (Heparin 5000 units/ml) 5,000 units EVERY 12 HOURS SUBQ 02/22/18 21:00 03/24/18 20:59 02/26/18 09:00 Levothyroxine Sodium (Synthroid) 50 mcg DAILY ORAL 02/23/18 09:00 03/25/18 08:59 02/26/18 08:51 Lorazepam (Ativan) 1 mg Q6H PRN ORAL For Anxiety 02/23/18 17:30 03/02/18 17:29 Nifedipine (Procardia XL) 30 mg DAILY ORAL 02/23/18 09:00 03/25/18 08:59 02/26/18 08:51 Nitroglycerin (Ntg) 0.4 mg Q 5 MINS PRN SL Prn Chest Pain 02/22/18 19:00 03/24/18 18:59 Ondansetron HCl (Zofran) 4 mg Q6H PRN IVP Nausea & Vomiting 02/22/18 19:00 03/24/18 18:59 Polyethylene Glycol (Miralax) 17 gm DAILYPRN PRN ORAL Constipation 02/22/18 19:00 03/24/18 18:59 Temazepam (Restoril) 15 mg HSPRN PRN ORAL Insomnia 02/22/18 19:00 03/01/18 18:59 Vancomycin HCl (Vanco rx to dose) 1 ea DAILY PRN MISC PER RX PROTOCOL 02/26/18 14:15 03/28/18 14:14 Vancomycin HCl 1 gm/Dextrose 275 ml @ 183.3 mls/ hr Q24H IVPB 02/23/18 09:00 02/28/18 08:59 02/26/18 08:42 Allergies: Coded Allergies: No Known Allergies (Unverified , 11/26/16) ROS Limited/Unobtainable: Yes Subjective 87 YO F admitted with swelling right great toe. Now cellulitis. Cover for Int Med-Dr Cruz Objective Last Vital Signs Date Time Temp Pulse Resp B/P (MAP) Pulse Ox O2 Delivery O2 Flow Rate FiO2 02/26/18 12:00 96.5 104 22 119/59 97 Room Air 96.5 General Appearance: WD/WN, no apparent distress, alert EENT: PERRL/EOMI, normal ENT inspection Neck: non-tender, normal alignment, supple Cardiovascular: normal peripheral pulses, normal rate, regular rhythm, no gallop/murmur, no JVD Respiratory/Chest: chest wall non-tender, lungs clear, normal breath sounds, no respiratory distress, no accessory muscle use Abdomen: normal bowel sounds, non tender, soft, no organomegaly, no mass Extremities: normal range of motion 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 Skin: normal pigmentation, warm/dry Laboratory Tests Test 02/26/18 05:38 White Blood Count 4.4 K/UL (4.8-10.8) L Red Blood Count 3.24 M/UL (4.20-5.40) L Hemoglobin 10.1 G/DL (12.0-16.0) L Hematocrit 28.8 % (37.0-47.0) L Mean Corpuscular Volume 89 FL (80-99) Mean Corpuscular Hemoglobin 31.2 PG (27.0-31.0) H Mean Corpuscular Hemoglobin Concent 35.1 G/DL (32.0-36.0) Red Cell Distribution Width 10.5 % (11.6-14.8) L Platelet Count 257 K/UL (150-450) Mean Platelet Volume 7.7 FL (6.5-10.1) Neutrophils (%) (Auto) 43.5 % (45.0-75.0) L Lymphocytes (%) (Auto) 40.8 % (20.0-45.0) Monocytes (%) (Auto) 11.4 % (1.0-10.0) H Eosinophils (%) (Auto) 3.3 % (0.0-3.0) H Basophils (%) (Auto) 0.9 % (0.0-2.0) Erythrocyte Sedimentation Rate 53 MM/HR (0-30) H Sodium Level 140 MMOL/L (136-145) Potassium Level 3.3 MMOL/L (3.5-5.1) L Chloride Level 106 MMOL/L (98-107) Carbon Dioxide Level 27 MMOL/L (21-32) Anion Gap 7 mmol/L (5-15) Blood Urea Nitrogen 9 mg/dL (7-18) Creatinine 0.7 MG/DL (0.55-1.30) Estimat Glomerular Filtration Rate mL/min (>60) Glucose Level 82 MG/DL (74-106) Calcium Level 8.9 MG/DL (8.5-10.1) Phosphorus Level 2.5 MG/DL (2.5-4.9) Magnesium Level 1.9 MG/DL (1.8-2.4) Total Bilirubin 0.5 MG/DL (0.2-1.0) Aspartate Amino Transf (AST/SGOT) 22 U/L (15-37) Alanine Aminotransferase (ALT/SGPT) 12 U/L (12-78) Alkaline Phosphatase 85 U/L (46-116) C-Reactive Protein, Quantitative 3.2 mg/dL (0.00-0.90) H Total Protein 6.9 G/DL (6.4-8.2) Albumin 2.3 G/DL (3.4-5.0) L Globulin 4.6 g/dL Albumin/Globulin Ratio 0.5 (1.0-2.7) L Intake and Output 02/25/18 02/26/18 19:00 07:00 Intake Total 715.0 ml 290 ml Balance 715.0 ml 290 ml Intake Oral 180 ml IV Total 715.0 ml 110 ml # Voids 2 3 Assessment/Plan Problem List: (1) HTN (hypertension) Assessment & Plan: Continue procardia XL (2) Cellulitis of toe Assessment & Plan: Continue unasyn and vanco per ID (3) Ulcer of toe Assessment & Plan: See podiatry note. (4) Bacteremia (5) Dementia (6) Hypothyroidism Assessment & Plan: Continue synthroid Status: progressing Dean Garnica MD Feb 26, 2018 15:41
[2018-02-26 16:00] VITALS: BP 121/66
[2018-02-26 20:00] VITALS: BP 124/62
[2018-02-27] VITALS: BP 153/71
[2018-02-27 04:00] VITALS: BP 131/77
[2018-02-27] MEDS: Ampicillin/Sulbactam Sod 3 GM in NS 110 ML IVPB SCH (05:50)
[2018-02-27 07:44] LABS: BASOPHILS % (AUTO) 0.9 % (0.0-2.0); EOSINOPHILS % (AUTO) 3.1 % (0.0-3.0); HEMATOCRIT 30.7 % (37.0-47.0); HEMOGLOBIN 10.3 G/DL (12.0-16.0); LYMPHOCYTES % (AUTO) 39.7 % (20.0-45.0); MEAN CORPUSCULAR VOLUME 90 FL (80-99); MONOCYTES % (AUTO) 9.1 % (1.0-10.0); NEUTROPHILS % (AUTO) 47.2 % (45.0-75.0); PLATELET COUNT 252 K/UL (150-450); WHITE BLOOD COUNT 4.9 K/UL (4.8-10.8)
[2018-02-27 07:54] LABS: ALANINE AMINOTRANSFERASE 12 U/L (12-78); ALBUMIN 2.4 G/DL (3.4-5.0); ALBUMIN/GLOBULIN RATIO 0.5 (1.0-2.7); ALKALINE PHOSPHATASE 87 U/L (46-116); ANION GAP 7 mmol/L (5-15); ASPARTATE AMINO TRANSFERASE 19 U/L (15-37); BILIRUBIN,TOTAL 0.5 MG/DL (0.2-1.0); BLOOD UREA NITROGEN 7 mg/dL (7-18); CALCIUM 8.9 MG/DL (8.5-10.1); CARBON DIOXIDE 26 MMOL/L (21-32); CHLORIDE 105 MMOL/L (98-107); CREATININE 0.8 MG/DL (0.55-1.30); PHOSPHORUS 2.1 MG/DL (2.5-4.9); SODIUM 138 MMOL/L (136-145)
[2018-02-27] MEDS: ALPRAZolam 0.25mg tab ORAL SCH (09:00)
[2018-02-27] MEDS: Vancomycin 1 GM in D5W 275 ML IVPB SCH (09:42)
[2018-02-27] MEDS: Heparin 5000 units/ml inj SUBQ SCH ×2 (09:48→20:50)
[2018-02-27 12:00] VITALS: BP 143/73
--- NOTE | 2018-02-27 12:03 | Internal Med Progress Note ---
Subjective Physician Name Dean Garnica Attending Physician Reinier Cruz MD Current Medications Medications (Trade) Dose Ordered Sig/Kalen Route PRN Reason Start Time Stop Time Status Last Admin Dose Admin Acetaminophen (Tylenol) 650 mg Q4H PRN ORAL fever 02/22/18 19:00 03/24/18 18:59 Albuterol/ Ipratropium (Albuterol/ Ipratropium) 3 ml EVERY 4 HOURS PRN HHN Shortness of Breath 02/22/18 19:00 02/27/18 18:59 Alprazolam (Xanax) 0.25 mg DAILY ORAL 02/23/18 09:00 03/02/18 08:59 02/26/18 08:52 Ampicillin Sodium/ Sulbactam Sodium 3 gm/Sodium Chloride 110 ml @ 220 mls/hr Q6HR IVPB 02/23/18 21:30 03/02/18 21:29 02/27/18 05:50 Dextrose (Dextrose 50%) STAT PRN IV Hypoglycemia 02/22/18 19:00 03/24/18 18:59 Escitalopram Oxalate (Lexapro) 5 mg DAILY ORAL 02/23/18 09:00 03/25/18 08:59 02/27/18 09:46 Heparin Sodium (Porcine) (Heparin 5000 units/ml) 5,000 units EVERY 12 HOURS SUBQ 02/22/18 21:00 03/24/18 20:59 02/27/18 09:48 Levothyroxine Sodium (Synthroid) 50 mcg DAILY ORAL 02/23/18 09:00 03/25/18 08:59 02/27/18 09:46 Lorazepam (Ativan) 1 mg Q6H PRN ORAL For Anxiety 02/23/18 17:30 03/02/18 17:29 02/27/18 07:59 Nifedipine (Procardia XL) 30 mg DAILY ORAL 02/23/18 09:00 03/25/18 08:59 02/26/18 08:51 Nitroglycerin (Ntg) 0.4 mg Q 5 MINS PRN SL Prn Chest Pain 02/22/18 19:00 03/24/18 18:59 Ondansetron HCl (Zofran) 4 mg Q6H PRN IVP Nausea & Vomiting 02/22/18 19:00 03/24/18 18:59 Polyethylene Glycol (Miralax) 17 gm DAILYPRN PRN ORAL Constipation 02/22/18 19:00 03/24/18 18:59 02/27/18 06:29 Temazepam (Restoril) 15 mg HSPRN PRN ORAL Insomnia 02/22/18 19:00 03/01/18 18:59 Vancomycin HCl (Vanco rx to dose) 1 ea DAILY PRN MISC PER RX PROTOCOL 02/26/18 14:15 03/28/18 14:14 Vancomycin HCl 1 gm/Dextrose 275 ml @ 183.3 mls/ hr Q24H IVPB 02/23/18 09:00 02/28/18 08:59 02/27/18 09:42 Allergies: Coded Allergies: No Known Allergies (Unverified , 11/26/16) ROS Limited/Unobtainable: Yes Subjective 87 YO F admitted with swelling right great toe. Now cellulitis. Cover for Int Med-Dr Cruz Objective Last Vital Signs Date Time Temp Pulse Resp B/P (MAP) Pulse Ox O2 Delivery O2 Flow Rate FiO2 02/27/18 09:00 60 102/49 02/27/18 08:22 18 Room Air 02/27/18 04:00 98.2 97 98.2 Laboratory Tests Test 02/27/18 06:53 White Blood Count 4.9 K/UL (4.8-10.8) Red Blood Count 3.40 M/UL (4.20-5.40) L Hemoglobin 10.3 G/DL (12.0-16.0) L Hematocrit 30.7 % (37.0-47.0) L Mean Corpuscular Volume 90 FL (80-99) Mean Corpuscular Hemoglobin 30.1 PG (27.0-31.0) Mean Corpuscular Hemoglobin Concent 33.4 G/DL (32.0-36.0) Red Cell Distribution Width 11.0 % (11.6-14.8) L Platelet Count 252 K/UL (150-450) Mean Platelet Volume 7.7 FL (6.5-10.1) Neutrophils (%) (Auto) 47.2 % (45.0-75.0) Lymphocytes (%) (Auto) 39.7 % (20.0-45.0) Monocytes (%) (Auto) 9.1 % (1.0-10.0) Eosinophils (%) (Auto) 3.1 % (0.0-3.0) H Basophils (%) (Auto) 0.9 % (0.0-2.0) Erythrocyte Sedimentation Rate 60 MM/HR (0-30) H Sodium Level 138 MMOL/L (136-145) Potassium Level 4.0 MMOL/L (3.5-5.1) Chloride Level 105 MMOL/L (98-107) Carbon Dioxide Level 26 MMOL/L (21-32) Anion Gap 7 mmol/L (5-15) Blood Urea Nitrogen 7 mg/dL (7-18) Creatinine 0.8 MG/DL (0.55-1.30) Estimat Glomerular Filtration Rate mL/min (>60) Glucose Level 93 MG/DL (74-106) Calcium Level 8.9 MG/DL (8.5-10.1) Phosphorus Level 2.1 MG/DL (2.5-4.9) L Magnesium Level 1.7 MG/DL (1.8-2.4) L Total Bilirubin 0.5 MG/DL (0.2-1.0) Aspartate Amino Transf (AST/SGOT) 19 U/L (15-37) Alanine Aminotransferase (ALT/SGPT) 12 U/L (12-78) Alkaline Phosphatase 87 U/L (46-116) C-Reactive Protein, Quantitative 2.4 mg/dL (0.00-0.90) H Total Protein 7.0 G/DL (6.4-8.2) Albumin 2.4 G/DL (3.4-5.0) L Globulin 4.6 g/dL Albumin/Globulin Ratio 0.5 (1.0-2.7) L Microbiology Date/Time Source Procedure Growth Status 02/25/18 11:15 Blood Blood Culture - Preliminary NO GROWTH AFTER 24 HOURS Resulted 02/25/18 11:00 Blood Blood Culture - Preliminary NO GROWTH AFTER 24 HOURS Resulted Intake and Output 02/26/18 02/27/18 19:00 07:00 Intake Total 1155.0 ml 230 ml Balance 1155.0 ml 230 ml Intake Oral 360 ml 120 ml IV Total 795.0 ml 110 ml # Voids 3 3 Objective General Appearance: WD/WN, no apparent distress, alert EENT: PERRL/EOMI, normal ENT inspection Neck: non-tender, normal alignment, supple Cardiovascular: normal peripheral pulses, normal rate, regular rhythm, no gallop/murmur, no JVD Respiratory/Chest: chest wall non-tender, lungs clear, normal breath sounds, no respiratory distress, no accessory muscle use Abdomen: normal bowel sounds, non tender, soft, no organomegaly, no mass Extremities: normal range of motion 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 (4) Bacteremia (5) Dementia (6) Hypothyroidism Assessment & Plan: Continue synthroid Status: not improved Dean Garnica MD Feb 27, 2018 12:03
--- NOTE | 2018-02-27 12:55 | Infectious Diseases Prog Note ---
Assessment/Plan Assessment/Plan Assessment: R 1st toe infected ulcer w/ possible OM (ulcer palpates to bone) -R foot xray: There is severe osteoporosis. No obvious acute fracture is identified. There is an old fracture of the base of the fifth metatarsal and the shaft. Subluxation of the first interphalangeal joint noted. Had hallux valgus deformity demonstrated. Soft tissue swelling is present. -ESR 61, CRP 8 -wound cx MRSA (S Bactrim, vanco, rifampin; R tetracycline), diptheroids CONS bacteremia ( contaminant) -02/22 Bcx / CONS; / NTD Afebrile, no leukocytosis -u/a wbc 5-10, nit neg, leuk +3 Dementia dysphagia anxiety [facility]way resident Plan: -Continue IV Vancomycin #6 for MRSA wound infection and possible OM; will treat for 42 days if MRI confirms OM. -D/c Unasyn #5 -02/23 SP Cefepime #2 -f/u MRI R foot to eval for OM -f/u repeat 2 sets of Bcx -f/u cx -Monitor CBC/BMP, temperatures -aspiration precautions -wound care/prevention per hosp protocol -podiatry f/u Thank you for this consultation. Will continue to follow along with you. Discussed with RN. Subjective Allergies: Coded Allergies: No Known Allergies (Unverified , 11/26/16) Subjective afebrile no leukocytosis repeat Bcx NTD MRI pending Objective Vital Signs Last 24 Hour Vital Signs Date Time Temp Pulse Resp B/P (MAP) Pulse Ox O2 Delivery O2 Flow Rate FiO2 02/27/18 09:00 60 102/49 02/27/18 08:22 86 18 Room Air 02/27/18 04:00 98.2 72 22 131/77 97 Room Air 98.2 02/27/18 00:00 98.2 82 20 153/71 97 Room Air 98.2 02/26/18 20:00 98.7 66 20 124/62 98 Room Air 98.7 02/26/18 19:55 80 20 Room Air 02/26/18 16:00 97.7 69 18 121/66 96 Room Air 97.7 Height (Feet): 5 Height (Inches): 3.00 Weight (Pounds): 130 Objective General Appearance: no apparent distress, thin, other - dementia Head: normocephalic Eyes: bilateral eye normal inspection, bilateral eye PERRL ENT: normal ENT inspection Neck: normal inspection Respiratory: chest non-tender, lungs clear, normal breath sounds, speaking full sentences Cardiovascular regular rate, rhythm, no edema Gastrointestinal: normal bowel sounds, non tender, soft, non-distended, no guarding, no rebound Musculoskeletal: swelling - R big toe. erythematous/swollen w. ulcer on dorsal aspect and purulent discharge Microbiology Date/Time Source Procedure Growth Status 02/25/18 11:15 Blood Blood Culture - Preliminary NO GROWTH AFTER 24 HOURS Resulted 02/25/18 11:00 Blood Blood Culture - Preliminary NO GROWTH AFTER 24 HOURS Resulted Laboratory Tests Test 02/27/18 06:53 White Blood Count 4.9 K/UL (4.8-10.8) Red Blood Count 3.40 M/UL (4.20-5.40) L Hemoglobin 10.3 G/DL (12.0-16.0) L Hematocrit 30.7 % (37.0-47.0) L Mean Corpuscular Volume 90 FL (80-99) Mean Corpuscular Hemoglobin 30.1 PG (27.0-31.0) Mean Corpuscular Hemoglobin Concent 33.4 G/DL (32.0-36.0) Red Cell Distribution Width 11.0 % (11.6-14.8) L Platelet Count 252 K/UL (150-450) Mean Platelet Volume 7.7 FL (6.5-10.1) Neutrophils (%) (Auto) 47.2 % (45.0-75.0) Lymphocytes (%) (Auto) 39.7 % (20.0-45.0) Monocytes (%) (Auto) 9.1 % (1.0-10.0) Eosinophils (%) (Auto) 3.1 % (0.0-3.0) H Basophils (%) (Auto) 0.9 % (0.0-2.0) Erythrocyte Sedimentation Rate 60 MM/HR (0-30) H Sodium Level 138 MMOL/L (136-145) Potassium Level 4.0 MMOL/L (3.5-5.1) Chloride Level 105 MMOL/L (98-107) Carbon Dioxide Level 26 MMOL/L (21-32) Anion Gap 7 mmol/L (5-15) Blood Urea Nitrogen 7 mg/dL (7-18) Creatinine 0.8 MG/DL (0.55-1.30) Estimat Glomerular Filtration Rate mL/min (>60) Glucose Level 93 MG/DL (74-106) Calcium Level 8.9 MG/DL (8.5-10.1) Phosphorus Level 2.1 MG/DL (2.5-4.9) L Magnesium Level 1.7 MG/DL (1.8-2.4) L Total Bilirubin 0.5 MG/DL (0.2-1.0) Aspartate Amino Transf (AST/SGOT) 19 U/L (15-37) Alanine Aminotransferase (ALT/SGPT) 12 U/L (12-78) Alkaline Phosphatase 87 U/L (46-116) C-Reactive Protein, Quantitative 2.4 mg/dL (0.00-0.90) H Total Protein 7.0 G/DL (6.4-8.2) Albumin 2.4 G/DL (3.4-5.0) L Globulin 4.6 g/dL Albumin/Globulin Ratio 0.5 (1.0-2.7) L Current Medications Medications (Trade) Dose Ordered Sig/Kalen Route PRN Reason Start Time Stop Time Status Last Admin Dose Admin Acetaminophen (Tylenol) 650 mg Q4H PRN ORAL fever 02/22/18 19:00 03/24/18 18:59 Albuterol/ Ipratropium (Albuterol/ Ipratropium) 3 ml EVERY 4 HOURS PRN HHN Shortness of Breath 02/22/18 19:00 02/27/18 18:59 Alprazolam (Xanax) 0.25 mg DAILY ORAL 02/23/18 09:00 03/02/18 08:59 02/26/18 08:52 Ampicillin Sodium/ Sulbactam Sodium 3 gm/Sodium Chloride 110 ml @ 220 mls/hr Q6HR IVPB 02/23/18 21:30 03/02/18 21:29 02/27/18 05:50 Dextrose (Dextrose 50%) STAT PRN IV Hypoglycemia 02/22/18 19:00 03/24/18 18:59 Escitalopram Oxalate (Lexapro) 5 mg DAILY ORAL 02/23/18 09:00 03/25/18 08:59 02/27/18 09:46 Heparin Sodium (Porcine) (Heparin 5000 units/ml) 5,000 units EVERY 12 HOURS SUBQ 02/22/18 21:00 03/24/18 20:59 02/27/18 09:48 Levothyroxine Sodium (Synthroid) 50 mcg DAILY ORAL 02/23/18 09:00 03/25/18 08:59 02/27/18 09:46 Lorazepam (Ativan) 1 mg Q6H PRN ORAL For Anxiety 02/23/18 17:30 03/02/18 17:29 02/27/18 07:59 Nifedipine (Procardia XL) 30 mg DAILY ORAL 02/23/18 09:00 03/25/18 08:59 02/26/18 08:51 Nitroglycerin (Ntg) 0.4 mg Q 5 MINS PRN SL Prn Chest Pain 02/22/18 19:00 03/24/18 18:59 Ondansetron HCl (Zofran) 4 mg Q6H PRN IVP Nausea & Vomiting 02/22/18 19:00 03/24/18 18:59 Polyethylene Glycol (Miralax) 17 gm DAILYPRN PRN ORAL Constipation 02/22/18 19:00 03/24/18 18:59 02/27/18 06:29 Temazepam (Restoril) 15 mg HSPRN PRN ORAL Insomnia 02/22/18 19:00 03/01/18 18:59 Vancomycin HCl (Vanco rx to dose) 1 ea DAILY PRN MISC PER RX PROTOCOL 02/26/18 14:15 03/28/18 14:14 Vancomycin HCl 1 gm/Dextrose 275 ml @ 183.3 mls/ hr Q24H IVPB 02/23/18 09:00 02/28/18 08:59 02/27/18 09:42 Nancy Mckenzie M.D. Feb 27, 2018 12:55
--- NOTE | 2018-02-27 15:17 | Diagnostic Imaging Report ---
Indication: Wound on right big toe Technique: Sagittal, coronal, and axial T 1 fast spin echo and FSE STIR images were obtained of the right forefoot. Due to the patient being contracted, the torso coil had to be utilized Comparison: For radiograph dated 02/22/2018 Findings: Exam is very limited due to inability using a surface coil, suboptimal positioning, and motion artifact. Despite these limitations, there is clearly abnormal high STIR signal and low T1 signal within the first proximal and distal phalanges. Very little is normal distal phalangeal signal is demonstrated. A marker oh an ulcer at the plantar surface of the great toe. The surrounding soft tissues of the great toe demonstrate considerable edema. There is also edema of the dorsal subcutaneous fat, to a lesser extent the plantar subcutaneous fat, and some edema within the muscular compartment. No definite focal fluid collections to suggest drainable abscess demonstrated, although evaluation for such there is limited given the above-described technical limitations. Impression: Marked signal abnormality in the first proximal and distal phalanges, consistent with osteomyelitis Soft tissue edema, as described. Nonspecific but could indicate cellulitis. Correlate with clinical findings Very limited exam, as described
--- NOTE | 2018-02-27 15:27 | Pulmonology Progress Note ---
Assessment/Plan Problems: (1) Osteomyelitis (2) Cellulitis of toe (3) Bacteremia (4) Dementia (5) Hypothyroidism Assessment/Plan MRI reviewed, c/w Osteomyelitis continue abx check sensitivity of the cultures check electrolytes tolerating diet symptomatic treatment dvt prophylaxis. Subjective ROS Limited/Unobtainable: Yes Constitutional: Reports: no symptoms Allergies: Coded Allergies: No Known Allergies (Unverified , 11/26/16) Objective Last 24 Hour Vital Signs Date Time Temp Pulse Resp B/P (MAP) Pulse Ox O2 Delivery O2 Flow Rate FiO2 02/27/18 12:00 97.9 60 18 143/73 100 97.9 02/27/18 09:00 60 102/49 02/27/18 08:22 86 18 Room Air 02/27/18 04:00 98.2 72 22 131/77 97 Room Air 98.2 02/27/18 00:00 98.2 82 20 153/71 97 Room Air 98.2 02/26/18 20:00 98.7 66 20 124/62 98 Room Air 98.7 02/26/18 19:55 80 20 Room Air 02/26/18 16:00 97.7 69 18 121/66 96 Room Air 97.7 Intake and Output 02/26/18 02/27/18 19:00 07:00 Intake Total 1155.0 ml 230 ml Balance 1155.0 ml 230 ml Intake Oral 360 ml 120 ml IV Total 795.0 ml 110 ml # Voids 3 3 Objective General Appearance: WD/WN HEENT: normocephalic, atraumatic Respiratory/Chest: chest wall non-tender, lungs clear Breasts: no masses Cardiovascular: normal peripheral pulses, normal rate Abdomen: normal bowel sounds, soft, non tender Genitourinary: normal external genitalia Extremities: no cyanosis Microbiology Date/Time Source Procedure Growth Status 02/25/18 11:15 Blood Blood Culture - Preliminary NO GROWTH AFTER 24 HOURS Resulted 02/25/18 11:00 Blood Blood Culture - Preliminary NO GROWTH AFTER 24 HOURS Resulted Laboratory Tests 02/27/18 06:53: White Blood Count 4.9, Red Blood Count 3.40L, Hemoglobin 10.3L, Hematocrit 30.7L , Mean Corpuscular Volume 90, Mean Corpuscular Hemoglobin 30.1, Mean Corpuscular Hemoglobin Concent 33.4, Red Cell Distribution Width 11.0L, Platelet Count 252, Mean Platelet Volume 7.7, Neutrophils (%) (Auto) 47.2, Lymphocytes (%) (Auto) 39.7, Monocytes (%) (Auto) 9.1, Eosinophils (%) (Auto) 3.1H, Basophils (%) (Auto) 0.9, Erythrocyte Sedimentation Rate 60H, Sodium Level 138, Potassium Level 4.0, Chloride Level 105, Carbon Dioxide Level 26, Anion Gap 7, Blood Urea Nitrogen 7, Creatinine 0.8, Estimat Glomerular Filtration Rate , Glucose Level 93, Calcium Level 8.9, Phosphorus Level 2.1L, Magnesium Level 1.7L, Total Bilirubin 0.5, Aspartate Amino Transf (AST/SGOT) 19 , Alanine Aminotransferase (ALT/SGPT) 12, Alkaline Phosphatase 87, C-Reactive Protein, Quantitative 2.4H, Total Protein 7.0, Albumin 2.4L, Globulin 4.6, Albumin/Globulin Ratio 0.5L Current Medications Medications (Trade) Dose Ordered Sig/Kalen Route PRN Reason Start Time Stop Time Status Last Admin Dose Admin Acetaminophen (Tylenol) 650 mg Q4H PRN ORAL fever 02/22/18 19:00 03/24/18 18:59 Albuterol/ Ipratropium (Albuterol/ Ipratropium) 3 ml EVERY 4 HOURS PRN HHN Shortness of Breath 02/22/18 19:00 02/27/18 18:59 Alprazolam (Xanax) 0.25 mg DAILY ORAL 02/23/18 09:00 03/02/18 08:59 02/26/18 08:52 Dextrose (Dextrose 50%) STAT PRN IV Hypoglycemia 02/22/18 19:00 03/24/18 18:59 Escitalopram Oxalate (Lexapro) 5 mg DAILY ORAL 02/23/18 09:00 03/25/18 08:59 02/27/18 09:46 Heparin Sodium (Porcine) (Heparin 5000 units/ml) 5,000 units EVERY 12 HOURS SUBQ 02/22/18 21:00 03/24/18 20:59 02/27/18 09:48 Levothyroxine Sodium (Synthroid) 50 mcg ACBREAKFAST ORAL 02/28/18 06:30 03/25/18 08:59 Lorazepam (Ativan) 1 mg Q6H PRN ORAL For Anxiety 02/23/18 17:30 03/02/18 17:29 02/27/18 07:59 Nifedipine (Procardia XL) 30 mg DAILY ORAL 02/23/18 09:00 03/25/18 08:59 02/26/18 08:51 Nitroglycerin (Ntg) 0.4 mg Q 5 MINS PRN SL Prn Chest Pain 02/22/18 19:00 03/24/18 18:59 Ondansetron HCl (Zofran) 4 mg Q6H PRN IVP Nausea & Vomiting 02/22/18 19:00 03/24/18 18:59 Polyethylene Glycol (Miralax) 17 gm DAILYPRN PRN ORAL Constipation 02/22/18 19:00 03/24/18 18:59 02/27/18 06:29 Temazepam (Restoril) 15 mg HSPRN PRN ORAL Insomnia 02/22/18 19:00 03/01/18 18:59 Vancomycin HCl (Vanco rx to dose) 1 ea DAILY PRN MISC PER RX PROTOCOL 02/26/18 14:15 03/28/18 14:14 Vancomycin HCl 1 gm/Dextrose 275 ml @ 183.3 mls/ hr Q24H IVPB 02/23/18 09:00 03/04/18 09:15 02/27/18 09:42 Jessica Amador MD Feb 27, 2018 15:27
[2018-02-27 16:00] VITALS: BP 146/86
[2018-02-27 20:17] VITALS: BP 138/72
--- NOTE | 2018-02-27 22:48 | General Progress Note ---
Assessment/Plan Status: stable, progressing Assessment/Plan dementia with behavioral dist anxiety -Ativan PRN Subjective Date patient seen: Feb 27, 2018 Neurologic/Psychiatric: Reports: depressed, emotional problems Allergies: Coded Allergies: No Known Allergies (Unverified , 11/26/16) Objective Last 24 Hour Vital Signs Date Time Temp Pulse Resp B/P (MAP) Pulse Ox O2 Delivery O2 Flow Rate FiO2 02/27/18 20:17 97.9 74 18 138/72 97 97.9 02/27/18 16:00 97.7 77 19 146/86 95 97.7 02/27/18 16:00 Room Air 02/27/18 12:00 Nasal Cannula 2.0 02/27/18 12:00 97.9 60 18 143/73 100 97.9 02/27/18 09:00 60 102/49 02/27/18 08:22 86 18 Room Air 02/27/18 04:00 98.2 72 22 131/77 97 Room Air 98.2 02/27/18 00:00 98.2 82 20 153/71 97 Room Air 98.2 Intake and Output 02/26/18 02/27/18 19:00 07:00 Intake Total 1155.0 ml 230 ml Balance 1155.0 ml 230 ml Intake Oral 360 ml 120 ml IV Total 795.0 ml 110 ml # Voids 3 3 Laboratory Tests 02/27/18 06:53: White Blood Count 4.9, Red Blood Count 3.40L, Hemoglobin 10.3L, Hematocrit 30.7L , Mean Corpuscular Volume 90, Mean Corpuscular Hemoglobin 30.1, Mean Corpuscular Hemoglobin Concent 33.4, Red Cell Distribution Width 11.0L, Platelet Count 252, Mean Platelet Volume 7.7, Neutrophils (%) (Auto) 47.2, Lymphocytes (%) (Auto) 39.7, Monocytes (%) (Auto) 9.1, Eosinophils (%) (Auto) 3.1H, Basophils (%) (Auto) 0.9, Erythrocyte Sedimentation Rate 60H, Sodium Level 138, Potassium Level 4.0, Chloride Level 105, Carbon Dioxide Level 26, Anion Gap 7, Blood Urea Nitrogen 7, Creatinine 0.8, Estimat Glomerular Filtration Rate , Glucose Level 93, Calcium Level 8.9, Phosphorus Level 2.1L, Magnesium Level 1.7L, Total Bilirubin 0.5, Aspartate Amino Transf (AST/SGOT) 19 , Alanine Aminotransferase (ALT/SGPT) 12, Alkaline Phosphatase 87, C-Reactive Protein, Quantitative 2.4H, Total Protein 7.0, Albumin 2.4L, Globulin 4.6, Albumin/Globulin Ratio 0.5L Height (Feet): 5 Height (Inches): 3.00 Weight (Pounds): 130 General Appearance: no apparent distress, alert, confused, agitated Sebastian Steel M.D. Feb 27, 2018 22:48
[2018-02-28 00:36] VITALS: BP 132/75
[2018-02-28 04:23] VITALS: BP 135/72
[2018-02-28 06:57] LABS: ANION GAP 9 mmol/L (5-15); BLOOD UREA NITROGEN 6 mg/dL (7-18); CARBON DIOXIDE 24 MMOL/L (21-32); CHLORIDE 104 MMOL/L (98-107); CREATININE 0.7 MG/DL (0.55-1.30); POTASSIUM 3.6 MMOL/L (3.5-5.1); SODIUM 137 MMOL/L (136-145)
[2018-02-28 07:09] LABS: BASOPHILS % (AUTO) 0.7 % (0.0-2.0); EOSINOPHILS % (AUTO) 3.3 % (0.0-3.0); HEMATOCRIT 29.6 % (37.0-47.0); HEMOGLOBIN 10.4 G/DL (12.0-16.0); LYMPHOCYTES % (AUTO) 37.5 % (20.0-45.0); MEAN CORPUSCULAR VOLUME 89 FL (80-99); MONOCYTES % (AUTO) 7.5 % (1.0-10.0); NEUTROPHILS % (AUTO) 50.9 % (45.0-75.0); PLATELET COUNT 230 K/UL (150-450); RED BLOOD COUNT 3.32 M/UL (4.20-5.40); WHITE BLOOD COUNT 4.7 K/UL (4.8-10.8)
[2018-02-28] MEDS: Vancomycin 1 GM in D5W 275 ML IVPB SCH (07:52)
[2018-02-28] MEDS: ALPRAZolam 0.25mg tab ORAL SCH (07:52)
[2018-02-28] MEDS: Heparin 5000 units/ml inj SUBQ SCH (07:55)
[2018-02-28 08:12] VITALS: BP 124/63
--- NOTE | 2018-02-28 10:44 | Infectious Diseases Prog Note ---
Assessment/Plan Assessment/Plan Assessment: R 1st toe infected ulcer w/ OM (ulcer palpates to bone and confirmed by MRI) -MRI R foot: Marked signal abnormality in the first proximal and distal phalanges, consistent with osteomyelitis. Soft tissue edema, as described. Nonspecific but could indicate cellulitis. Correlate with clinical findings. Very limited exam. -R foot xray: There is severe osteoporosis. No obvious acute fracture is identified. There is an old fracture of the base of the fifth metatarsal and the shaft. Subluxation of the first interphalangeal joint noted. Had hallux valgus deformity demonstrated. Soft tissue swelling is present. -ESR 61, CRP 8 -wound cx MRSA (S Bactrim, vanco, rifampin; R tetracycline), diptheroids CONS bacteremia ( contaminant) -02/22 Bcx 09/29 CONS; 02/25 NTD Afebrile, no leukocytosis -u/a wbc 5-10, nit neg, leuk +3 Dementia dysphagia anxiety [facility] resident Plan: -Continue IV Vancomycin 1g q 24hr # for MRSA R 1st toe wound infection and OM; end date 04/03/18 -weekly CBC, BMP, vanco through upon discharge -02/27 SP Unasyn #5 -02/23 SP Cefepime #2 -PICC line placement -f/u repeat 2 sets of Bcx -f/u cx -Monitor CBC/BMP, temperatures -aspiration precautions -wound care/prevention per hosp protocol -podiatry f/u Thank you for this consultation. Will continue to follow along with you. Discussed with RN. Subjective Allergies: Coded Allergies: No Known Allergies (Unverified , 11/26/16) Subjective afebrile no leukocytosis repeat Bcx NTD MRI pending Objective Vital Signs Last 24 Hour Vital Signs Date Time Temp Pulse Resp B/P (MAP) Pulse Ox O2 Delivery O2 Flow Rate FiO2 02/28/18 08:12 98.2 72 18 124/63 96 Room Air 98.2 02/28/18 07:53 73 130/65 02/28/18 07:45 73 18 Room Air 02/28/18 04:23 94 Room Air 02/28/18 04:23 97.9 80 17 135/72 94 97.9 02/28/18 00:36 96 Room Air 02/28/18 00:36 97.8 70 17 132/75 96 97.8 02/27/18 20:17 97.9 74 18 138/72 97 97.9 02/27/18 20:17 97 Room Air 02/27/18 19:00 92 18 Room Air 02/27/18 16:00 97.7 77 19 146/86 95 97.7 02/27/18 16:00 Room Air 02/27/18 12:00 Nasal Cannula 2.0 02/27/18 12:00 97.9 60 18 143/73 100 97.9 Height (Feet): 5 Height (Inches): 3.00 Weight (Pounds): 130 Objective General Appearance: no apparent distress, thin, other - dementia Head: normocephalic Eyes: bilateral eye normal inspection, bilateral eye PERRL ENT: normal ENT inspection Neck: normal inspection Respiratory: chest non-tender, lungs clear, normal breath sounds, speaking full sentences Cardiovascular regular rate, rhythm, no edema Gastrointestinal: normal bowel sounds, non tender, soft, non-distended, no guarding, no rebound Musculoskeletal: swelling - R big toe. erythematous/swollen w. ulcer on dorsal aspect and purulent discharge Microbiology Date/Time Source Procedure Growth Status 02/25/18 11:15 Blood Blood Culture - Preliminary NO GROWTH AFTER 48 HOURS Resulted 02/25/18 11:00 Blood Blood Culture - Preliminary NO GROWTH AFTER 48 HOURS Resulted Laboratory Tests Test 02/28/18 05:20 White Blood Count 4.7 K/UL (4.8-10.8) L Red Blood Count 3.32 M/UL (4.20-5.40) L Hemoglobin 10.4 G/DL (12.0-16.0) L Hematocrit 29.6 % (37.0-47.0) L Mean Corpuscular Volume 89 FL (80-99) Mean Corpuscular Hemoglobin 31.2 PG (27.0-31.0) H Mean Corpuscular Hemoglobin Concent 35.0 G/DL (32.0-36.0) Red Cell Distribution Width 11.0 % (11.6-14.8) L Platelet Count 230 K/UL (150-450) Mean Platelet Volume 7.2 FL (6.5-10.1) Neutrophils (%) (Auto) 50.9 % (45.0-75.0) Lymphocytes (%) (Auto) 37.5 % (20.0-45.0) Monocytes (%) (Auto) 7.5 % (1.0-10.0) Eosinophils (%) (Auto) 3.3 % (0.0-3.0) H Basophils (%) (Auto) 0.7 % (0.0-2.0) Sodium Level 137 MMOL/L (136-145) Potassium Level 3.6 MMOL/L (3.5-5.1) Chloride Level 104 MMOL/L (98-107) Carbon Dioxide Level 24 MMOL/L (21-32) Anion Gap 9 mmol/L (5-15) Blood Urea Nitrogen 6 mg/dL (7-18) L Creatinine 0.7 MG/DL (0.55-1.30) Estimat Glomerular Filtration Rate mL/min (>60) Glucose Level 82 MG/DL (74-106) Calcium Level 9.0 MG/DL (8.5-10.1) Current Medications Medications (Trade) Dose Ordered Sig/Kalen Route PRN Reason Start Time Stop Time Status Last Admin Dose Admin Acetaminophen (Tylenol) 650 mg Q4H PRN ORAL fever 02/22/18 19:00 03/24/18 18:59 Alprazolam (Xanax) 0.25 mg DAILY ORAL 02/23/18 09:00 03/02/18 08:59 02/28/18 07:52 Dextrose (Dextrose 50%) STAT PRN IV Hypoglycemia 02/22/18 19:00 03/24/18 18:59 Escitalopram Oxalate (Lexapro) 5 mg DAILY ORAL 02/23/18 09:00 03/25/18 08:59 02/28/18 07:53 Heparin Sodium (Porcine) (Heparin 5000 units/ml) 5,000 units EVERY 12 HOURS SUBQ 02/22/18 21:00 03/24/18 20:59 02/28/18 07:55 Levothyroxine Sodium (Synthroid) 50 mcg ACBREAKFAST ORAL 02/28/18 06:30 03/25/18 08:59 02/28/18 05:40 Lorazepam (Ativan) 1 mg Q6H PRN ORAL For Anxiety 02/23/18 17:30 03/02/18 17:29 02/27/18 07:59 Nifedipine (Procardia XL) 30 mg DAILY ORAL 02/23/18 09:00 03/25/18 08:59 02/28/18 07:53 Nitroglycerin (Ntg) 0.4 mg Q 5 MINS PRN SL Prn Chest Pain 02/22/18 19:00 03/24/18 18:59 Ondansetron HCl (Zofran) 4 mg Q6H PRN IVP Nausea & Vomiting 02/22/18 19:00 03/24/18 18:59 Polyethylene Glycol (Miralax) 17 gm DAILYPRN PRN ORAL Constipation 02/22/18 19:00 03/24/18 18:59 02/27/18 06:29 Temazepam (Restoril) 15 mg HSPRN PRN ORAL Insomnia 02/22/18 19:00 03/01/18 18:59 Vancomycin HCl (Vanco rx to dose) 1 ea DAILY PRN MISC PER RX PROTOCOL 02/26/18 14:15 03/28/18 14:14 Vancomycin HCl 1 gm/Dextrose 275 ml @ 183.3 mls/ hr Q24H IVPB 02/23/18 09:00 03/04/18 09:15 02/28/18 07:52 Nancy Mckenzie M.D. Feb 28, 2018 10:44
[2018-02-28 11:46] VITALS: BP 112/51
[2018-02-28] MEDS ORDERED: Heparin 2000 units/Ns 1000ml INJ ONE (13:00)
[2018-02-28] MEDS ORDERED: Lidocaine 1% Plain 30 ml INJ ONE (13:00)
--- NOTE | 2018-02-28 14:25 | Diagnostic Imaging Report ---
Indications: Needs long-term IV access Technique: Ultrasound confirms patent compressible left basilic vein. Total sterile technique, including sterile probe cover and sterile gel, hat, mask,, sterile gown, large sterile drape, and preparation with 2% chlorhexidine utilized. Local anesthesia with 1% lidocaine. Under real-time ultrasound guidance, puncture basilic vein using 21-gauge needle, documented and archived, passage 0.018 guidewire under direct fluoroscopy, which was used to determine appropriate catheter length, exchange for 5 [place] peel-away sheath. 5 [place] Bard dual-lumen power PICC cut to 39 cm. It was inserted through the peel-away sheath. Peel-away sheath and guidewire removed. Catheter fixed to the skin. Both catheter ports aspirated and flushed. Patient tolerated procedure well, without immediate complication. Digital radiograph documents satisfactory catheter tip position, at the cavoatrial junction. Total fluoroscopy time 0.5 minutes. Total dose area product 11 dGycm2 Impression: Successful placement of left arm PICC under sonographic and fluoroscopic guidance, as described above.
--- NOTE | 2018-02-28 14:43 | General Progress Note ---
Assessment/Plan Assessment/Plan dementia with behavioral dist anxiety -Ativan PRN Subjective Date patient seen: Feb 28, 2018 Neurologic/Psychiatric: Reports: anxiety, depressed, emotional problems Allergies: Coded Allergies: No Known Allergies (Unverified , 11/26/16) Objective Last 24 Hour Vital Signs Date Time Temp Pulse Resp B/P (MAP) Pulse Ox O2 Delivery O2 Flow Rate FiO2 02/28/18 11:46 98.2 66 18 112/51 99 Room Air 98.2 02/28/18 08:12 98.2 72 18 124/63 96 Room Air 98.2 02/28/18 07:53 73 130/65 02/28/18 07:45 73 18 Room Air 02/28/18 04:23 94 Room Air 02/28/18 04:23 97.9 80 17 135/72 94 97.9 02/28/18 00:36 96 Room Air 02/28/18 00:36 97.8 70 17 132/75 96 97.8 02/27/18 20:17 97.9 74 18 138/72 97 97.9 02/27/18 20:17 97 Room Air 02/27/18 19:00 92 18 Room Air 02/27/18 16:00 97.7 77 19 146/86 95 97.7 02/27/18 16:00 Room Air Intake and Output 02/27/18 02/28/18 19:00 07:00 Intake Total 385.0 ml Balance 385.0 ml Intake Oral 110 ml IV Total 275.0 ml # Voids 2 3 Laboratory Tests 02/28/18 05:20: White Blood Count 4.7L, Red Blood Count 3.32L, Hemoglobin 10.4L, Hematocrit 29.6L, Mean Corpuscular Volume 89, Mean Corpuscular Hemoglobin 31.2H, Mean Corpuscular Hemoglobin Concent 35.0, Red Cell Distribution Width 11.0L, Platelet Count 230, Mean Platelet Volume 7.2, Neutrophils (%) (Auto) 50.9, Lymphocytes (%) (Auto) 37.5, Monocytes (%) (Auto) 7.5, Eosinophils (%) (Auto) 3.3H, Basophils (%) (Auto) 0.7, Sodium Level 137, Potassium Level 3.6, Chloride Level 104, Carbon Dioxide Level 24, Anion Gap 9, Blood Urea Nitrogen 6L, Creatinine 0.7, Estimat Glomerular Filtration Rate , Glucose Level 82, Calcium Level 9.0 Height (Feet): 5 Height (Inches): 3.00 Weight (Pounds): 130 General Appearance: no apparent distress, alert, confused Sebastian Steel M.D. Feb 28, 2018 14:43
--- NOTE | 2018-02-28 15:23 | Pulmonology Progress Note ---
Assessment/Plan Problems: (1) Osteomyelitis (2) Cellulitis of toe (3) Bacteremia (4) Dementia (5) Hypothyroidism Assessment/Plan MRI reviewed, c/w Osteomyelitis continue abx, Vancomycin IV check sensitivity of the cultures check electrolytes tolerating diet symptomatic treatment dvt prophylaxis. Subjective ROS Limited/Unobtainable: Yes Constitutional: Reports: no symptoms HEENT: Repors: no symptoms Respiratory: Reports: no symptoms Allergies: Coded Allergies: No Known Allergies (Unverified , 11/26/16) Objective Last 24 Hour Vital Signs Date Time Temp Pulse Resp B/P (MAP) Pulse Ox O2 Delivery O2 Flow Rate FiO2 02/28/18 11:46 98.2 66 18 112/51 99 Room Air 98.2 02/28/18 08:12 98.2 72 18 124/63 96 Room Air 98.2 02/28/18 07:53 73 130/65 02/28/18 07:45 73 18 Room Air 02/28/18 04:23 94 Room Air 02/28/18 04:23 97.9 80 17 135/72 94 97.9 02/28/18 00:36 96 Room Air 02/28/18 00:36 97.8 70 17 132/75 96 97.8 02/27/18 20:17 97.9 74 18 138/72 97 97.9 02/27/18 20:17 97 Room Air 02/27/18 19:00 92 18 Room Air 02/27/18 16:00 97.7 77 19 146/86 95 97.7 02/27/18 16:00 Room Air Intake and Output 02/27/18 02/28/18 19:00 07:00 Intake Total 385.0 ml Balance 385.0 ml Intake Oral 110 ml IV Total 275.0 ml # Voids 2 3 Objective General Appearance: WD/WN HEENT: normocephalic, atraumatic Respiratory/Chest: chest wall non-tender, lungs clear Breasts: no masses Cardiovascular: normal peripheral pulses, normal rate Abdomen: normal bowel sounds, soft, non tender Genitourinary: normal external genitalia Extremities: no cyanosis Laboratory Tests 02/28/18 05:20: White Blood Count 4.7L, Red Blood Count 3.32L, Hemoglobin 10.4L, Hematocrit 29.6L, Mean Corpuscular Volume 89, Mean Corpuscular Hemoglobin 31.2H, Mean Corpuscular Hemoglobin Concent 35.0, Red Cell Distribution Width 11.0L, Platelet Count 230, Mean Platelet Volume 7.2, Neutrophils (%) (Auto) 50.9, Lymphocytes (%) (Auto) 37.5, Monocytes (%) (Auto) 7.5, Eosinophils (%) (Auto) 3.3H, Basophils (%) (Auto) 0.7, Sodium Level 137, Potassium Level 3.6, Chloride Level 104, Carbon Dioxide Level 24, Anion Gap 9, Blood Urea Nitrogen 6L, Creatinine 0.7, Estimat Glomerular Filtration Rate , Glucose Level 82, Calcium Level 9.0 Current Medications Medications (Trade) Dose Ordered Sig/Kalen Route PRN Reason Start Time Stop Time Status Last Admin Dose Admin Acetaminophen (Tylenol) 650 mg Q4H PRN ORAL fever 02/22/18 19:00 03/24/18 18:59 Alprazolam (Xanax) 0.25 mg DAILY ORAL 02/23/18 09:00 03/02/18 08:59 02/28/18 07:52 Chlorhexidine Gluconate (Marion-Hex 2%) 1 applic DAILY@1999 TOPIC 02/28/18 20:00 03/30/18 19:59 Dextrose (Dextrose 50%) STAT PRN IV Hypoglycemia 02/22/18 19:00 03/24/18 18:59 Escitalopram Oxalate (Lexapro) 5 mg DAILY ORAL 02/23/18 09:00 03/25/18 08:59 02/28/18 07:53 Heparin Sodium (Porcine) (Heparin 5000 units/ml) 5,000 units EVERY 12 HOURS SUBQ 02/22/18 21:00 03/24/18 20:59 02/28/18 07:55 Levothyroxine Sodium (Synthroid) 50 mcg ACBREAKFAST ORAL 02/28/18 06:30 03/25/18 08:59 02/28/18 05:40 Lorazepam (Ativan) 1 mg Q6H PRN ORAL For Anxiety 02/23/18 17:30 03/02/18 17:29 02/27/18 07:59 Nifedipine (Procardia XL) 30 mg DAILY ORAL 02/23/18 09:00 03/25/18 08:59 02/28/18 07:53 Nitroglycerin (Ntg) 0.4 mg Q 5 MINS PRN SL Prn Chest Pain 02/22/18 19:00 03/24/18 18:59 Ondansetron HCl (Zofran) 4 mg Q6H PRN IVP Nausea & Vomiting 02/22/18 19:00 03/24/18 18:59 Polyethylene Glycol (Miralax) 17 gm DAILYPRN PRN ORAL Constipation 02/22/18 19:00 03/24/18 18:59 02/27/18 06:29 Temazepam (Restoril) 15 mg HSPRN PRN ORAL Insomnia 02/22/18 19:00 03/01/18 18:59 Vancomycin HCl (Vanco rx to dose) 1 ea DAILY PRN MISC PER RX PROTOCOL 02/26/18 14:15 03/28/18 14:14 Vancomycin HCl 1 gm/Dextrose 275 ml @ 183.3 mls/ hr Q24H IVPB 02/23/18 09:00 03/04/18 09:15 02/28/18 07:52 Jessica Amador MD Feb 28, 2018 15:23
[2018-02-28] MEDS ORDERED: VANCOMYCIN1 GM IV (15:25)
[2018-02-28 15:52] VITALS: BP 135/69
--- NOTE | 2018-02-28 16:41 | Internal Med Progress Note ---
Subjective Date of Service: Feb 28, 2018 Physician Name Dean Garnica Attending Physician Reinier Cruz MD Current Medications Medications (Trade) Dose Ordered Sig/Kalen Route PRN Reason Start Time Stop Time Status Last Admin Dose Admin Acetaminophen (Tylenol) 650 mg Q4H PRN ORAL fever 02/22/18 19:00 03/24/18 18:59 Alprazolam (Xanax) 0.25 mg DAILY ORAL 02/23/18 09:00 03/02/18 08:59 02/28/18 07:52 Chlorhexidine Gluconate (Marion-Hex 2%) 1 applic DAILY@1999 TOPIC 02/28/18 20:00 03/30/18 19:59 Dextrose (Dextrose 50%) STAT PRN IV Hypoglycemia 02/22/18 19:00 03/24/18 18:59 Escitalopram Oxalate (Lexapro) 5 mg DAILY ORAL 02/23/18 09:00 03/25/18 08:59 02/28/18 07:53 Heparin Sodium (Porcine) (Heparin 5000 units/ml) 5,000 units EVERY 12 HOURS SUBQ 02/22/18 21:00 03/24/18 20:59 02/28/18 07:55 Levothyroxine Sodium (Synthroid) 50 mcg ACBREAKFAST ORAL 02/28/18 06:30 03/25/18 08:59 02/28/18 05:40 Lorazepam (Ativan) 1 mg Q6H PRN ORAL For Anxiety 02/23/18 17:30 03/02/18 17:29 02/27/18 07:59 Nifedipine (Procardia XL) 30 mg DAILY ORAL 02/23/18 09:00 03/25/18 08:59 02/28/18 07:53 Nitroglycerin (Ntg) 0.4 mg Q 5 MINS PRN SL Prn Chest Pain 02/22/18 19:00 03/24/18 18:59 Ondansetron HCl (Zofran) 4 mg Q6H PRN IVP Nausea & Vomiting 02/22/18 19:00 03/24/18 18:59 Polyethylene Glycol (Miralax) 17 gm DAILYPRN PRN ORAL Constipation 02/22/18 19:00 03/24/18 18:59 02/27/18 06:29 Temazepam (Restoril) 15 mg HSPRN PRN ORAL Insomnia 02/22/18 19:00 6/6/18 18:59 Vancomycin HCl (Vanco rx to dose) 1 ea DAILY PRN MISC PER RX PROTOCOL 02/26/18 14:15 03/28/18 14:14 Vancomycin HCl 1 gm/Dextrose 275 ml @ 183.3 mls/ hr Q24H IVPB 02/23/18 09:00 03/04/18 09:15 02/28/18 07:52 Allergies: Coded Allergies: No Known Allergies (Unverified , 11/26/16) ROS Limited/Unobtainable: Yes Subjective 87 YO F admitted with swelling right great toe. Now cellulitis. Cover for Int Med-Dr Cruz Objective Last Vital Signs Date Time Temp Pulse Resp B/P (MAP) Pulse Ox O2 Delivery O2 Flow Rate FiO2 02/28/18 15:52 97.8 61 18 135/69 100 Room Air 97.8 02/27/18 12:00 2.0 Laboratory Tests Test 02/28/18 05:20 White Blood Count 4.7 K/UL (4.8-10.8) L Red Blood Count 3.32 M/UL (4.20-5.40) L Hemoglobin 10.4 G/DL (12.0-16.0) L Hematocrit 29.6 % (37.0-47.0) L Mean Corpuscular Volume 89 FL (80-99) Mean Corpuscular Hemoglobin 31.2 PG (27.0-31.0) H Mean Corpuscular Hemoglobin Concent 35.0 G/DL (32.0-36.0) Red Cell Distribution Width 11.0 % (11.6-14.8) L Platelet Count 230 K/UL (150-450) Mean Platelet Volume 7.2 FL (6.5-10.1) Neutrophils (%) (Auto) 50.9 % (45.0-75.0) Lymphocytes (%) (Auto) 37.5 % (20.0-45.0) Monocytes (%) (Auto) 7.5 % (1.0-10.0) Eosinophils (%) (Auto) 3.3 % (0.0-3.0) H Basophils (%) (Auto) 0.7 % (0.0-2.0) Sodium Level 137 MMOL/L (136-145) Potassium Level 3.6 MMOL/L (3.5-5.1) Chloride Level 104 MMOL/L (98-107) Carbon Dioxide Level 24 MMOL/L (21-32) Anion Gap 9 mmol/L (5-15) Blood Urea Nitrogen 6 mg/dL (7-18) L Creatinine 0.7 MG/DL (0.55-1.30) Estimat Glomerular Filtration Rate mL/min (>60) Glucose Level 82 MG/DL (74-106) Calcium Level 9.0 MG/DL (8.5-10.1) Intake and Output 02/27/18 02/28/18 19:00 07:00 Intake Total 385.0 ml Balance 385.0 ml Intake Oral 110 ml IV Total 275.0 ml # Voids 2 3 Objective General Appearance: WD/WN, no apparent distress, alert EENT: PERRL/EOMI, normal ENT inspection Neck: non-tender, normal alignment, supple Cardiovascular: normal peripheral pulses, normal rate, regular rhythm, no gallop/murmur, no JVD Respiratory/Chest: chest wall non-tender, lungs clear, normal breath sounds, no respiratory distress, no accessory muscle use Abdomen: normal bowel sounds, non tender, soft, no organomegaly, no mass Extremities: normal range of motion Neurologic: tire mechanic II-XII grossly normal Skin: normal pigmentation, warm/dry Assessment/Plan Problem List: (1) HTN (hypertension) Assessment & Plan: Continue procardia XL (2) Cellulitis of toe Assessment & Plan: Continue vanco day #7 per ID (3) Ulcer of toe Assessment & Plan: See podiatry note. (4) Bacteremia (5) Dementia (6) Hypothyroidism Assessment & Plan: Continue synthroid Status: progressing Dean Garnica MD Feb 28, 2018 16:41
[2018-02-28] MEDS ORDERED: Dyna-Hex 2% Top Sol 2oz TOPIC SCH ×2 (20:00)
--- NOTE | 2018-03-01 11:46 | Discharge Summary ---
Discharge Summary Discharge Summary _ DATE OF ADMISSION: 02/22/2018 DATE OF DISCHARGE: 02/28/2018 REASON FOR ADMISSION: 87 years old female with past medical history significant for encephalopathy, hypertension, depression, hypothyroidism, dysphagia, [facility] for evaluation due to swelling of the right great toe. Upon evaluation vital signs were stable, no fever . Laboratory workup revealed no leukocytosis ,hemoglobin 11.7, hematocrit 36.3. Foot x-ray revealed no obvious acute injury. Severe osteoporosis. Subluxation of the first interphalangeal joint. Hallux valgus deformity. Soft tissue swelling. Patient was admitted with diagnosis of right great toe infected ulcer , cellulitis right great toe, encephalopathy. CONSULTANTS: pulmonary Dr. Amador ID specialist Dr. Morales explosive man/oncologist Dr. Lu Podiatry.dr Perry psychiatrist [facility] COURSE: Patient admitted. Patient started on empiric antibiotic. ESR 61, CRP 8. Initial blood culture 1 out of 4 revealed Staphylococcus coagulase negative, repeated blood culture were negative, likely initial contamination as per ID specialist. MRI of the right foot revealed marked signal abnormality in the first proximal and distal phalanges, consistent with osteomyelitis. Soft tissue edema, nonspecific possibly indicative of cellulitis. ID specialist closely followed. Patient was on IV antibiotics. PICC line was placed prior to discharge. Patient was on IV vancomycin while in the hospital. Patient will continue IV vancomycin in the [facility] facility to complete total of 42 days of treatment for osteomyelitis as per ID recommendations. Patient will need weekly CBC, BMP , Vanco level. Repeat two sets of blood culture. [facility] Supervisor seen and evaluated the patient. Wound care was provided as per affiliate manager recommendation, and to be [facility] [place]. Venous duplex bilateral lower extremity revealed chronic thrombosis right lower extremity. Credit Clerk consult was requested. Patient was already treated for DVT prior to this admission. Credit Clerk recommended to discontinue Coumadin, if patient was already treated for more than 3 months. Patient had no acute etiology for development of chronic thrombosis. Patient was not tachycardic, did not have shortness of breath. Credit Clerk recommended to hold off on VQ scan. Should patient develop tachycardia or shortness of breath , VQ scan should be done. Additionally D-dimer was recommended if symptoms arise. DVT prophylaxis provided. Patient was off Coumadin. Blood pressure was managed with calcium channel [place] and remained stable. Hemoglobin and hematocrit were closely monitored, remained at the baseline. Anemia workup was consistent with anemia of chronic disease. CEA was within normal limits. Psychiatrist closely followed, diagnosed patient with dementia with behavioral disturbances and anxiety . Patient was continued on Lexapro. Ativan was on board as needed. Supportive care provided . Bowel regimen instituted. Renal parameters and electrolytes were closely monitored. Electrolytes corrected as needed. Synthroid was continued Patient was stable for discharge to penit[facility]iary facility , complete antibiotic course as outlined in medication reconciliation list. FINAL DIAGNOSES: Right great toe infected ulcer with osteomyelitis Cellulitis right great toe Chronic DVT right lower extremity Hypertension Mild anemia Dementia with behavioral disturbances Encephalopathy Anxiety Hypothyroidism DISCHARGE MEDICATIONS: See Medication Reconciliation list. DISCHARGE INSTRUCTIONS: Patient was discharged to [facility]. Follow up with healthcare provider at the facility. I have been assigned to dictate discharge summary for this account. I was not involved in the patient's management. Amy George NP Mar 01, 2018 11:46
== END 2018-02-28 19:30 | DRG 344 ==
LOC: EDBD 14:22 → EMR 14:55 → 4W 18:00 → EDBEDREQ 19:17 → 4W 21:07
PROC: 02HV33Z Insertion of Infusion Device into Superior Vena Cava, Percutaneous Approach (ICD-10-PCS; principal; 2018-02-28)
PROC: B548ZZA Ultrasonography of Superior Vena Cava, Guidance (ICD-10-PCS; 2018-02-28)
DX: M86.8X8 Other osteomyelitis, other site (principal); G93.40 Encephalopathy, unspecified; R78.81 Bacteremia; I82.511 Chronic embolism and thrombosis of right femoral vein; F03.91 Unspecified dementia, unspecified severity, with behavioral disturbance; L03.031 Cellulitis of right toe; L97.516 Non-pressure chronic ulcer of other part of right foot with bone involvement without evidence of necrosis; F41.9 Anxiety disorder, unspecified; D63.8 Anemia in other chronic diseases classified elsewhere; I10 Essential (primary) hypertension; E03.9 Hypothyroidism, unspecified; M81.0 Age-related osteoporosis without current pathological fracture; R13.10 Dysphagia, unspecified; Z79.01 Long term (current) use of anticoagulants
CPT/HCPCS: 36415; 36569; 76937; 80048; 80053; 80202; 81003; 82378; 82607; 82746; 83540; 83550; 83605; 83615; 83735; 84100; 85007; 85025; 85044; 85060; 85610; 85651; 85730; 86140; 87040; 87070; 87081; 87086; 87181; 87205; 93970; 94664; 99285

== ENCOUNTER 2019-06-18 20:08 | Inpatient (IN) | payer MEDICARE, OTHER ==
[~2019-06-18] VITALS: Ht 160 cm; Wt 46.7 kg
[~2019-06-18 20:08] MED LIST changes: +ACETAMINOPHEN325 M1 ORAL; +ARTIFICIAL TEAR15 ML LEFT EYE; +ARTIFICIAL TEAR15 ML RIGHT EYE; +VANCOMYCIN1 GM IV; +VITAMIN C500 M1 ORAL
[2019-06-18] MEDS ORDERED: FERROUS SU220 MG/51 PO (20:34)
[2019-06-18] MEDS ORDERED: PRO-STAT LIQUID30 ML ORAL (20:34)
[2019-06-18] MEDS ORDERED: ALBUTEROL2.5 MG/3 M INH (20:34)
[2019-06-18] MEDS ORDERED: SYNTHROID100 MCG ORAL (20:34)
[2019-06-18] MEDS ORDERED: ADALAT20 MG ORAL (20:34)
[2019-06-18 21:00] VITALS: BP 105/73
--- NOTE | 2019-06-18 21:02 | Emergency Room Report ---
History of Present Illness General Chief Complaint: General Complaint Source: Medical Record, EMS Present Illness HPI Patient presents not eating. The patient is unable to give a history. Apparently she is a DNR and DNI status. [facility] is [facility]. They report that she has difficulty swallowing. The patient was last admitted in 2018. Discharge diagnoses: Right great toe infected ulcer with osteomyelitis Cellulitis right great toe Chronic DVT right lower extremity Hypertension Mild anemia Dementia with behavioral disturbances Encephalopathy Anxiety Hypothyroidism Allergies: Coded Allergies: No Known Allergies (Unverified , 11/26/16) Patient History Limited by: medical condition Past Medical History: see triage record, old chart reviewed Social History: Denies: smoking Social History Narrative [facility] facility, DNR status Reviewed Nursing Documentation: PMH: Agreed; PSxH: Agreed Nursing Documentation-PMH Hx Cancer: No Hx Gastrointestinal Problems: Yes - dysphagia Hx Neurological Problems: Yes - Altered mental status. Review of Systems All Other Systems: limited Physical Exam Vital Signs Date Time Temp Pulse Resp B/P (MAP) Pulse Ox O2 Delivery O2 Flow Rate FiO2 06/18/19 20:16 98.6 98 18 105/73 (84) 97 Room Air Sp02 EP Interpretation: reviewed, normal General Appearance: no apparent distress, lethargic, thin, Chronically Ill Head: normocephalic Eyes: bilateral eye normal inspection, bilateral eye PERRL, bilateral eye EOMI ENT: dry mucus membranes Neck: supple Respiratory: lungs clear, normal breath sounds Cardiovascular #1: regular rate, rhythm, no edema Cardiovascular #2: 2+ radial (R) Gastrointestinal: normal inspection, normal bowel sounds, non tender, no mass, non-distended Musculoskeletal: back normal, other - Contractures and boot protection of left lower extremity Neurologic: responsive, motor weakness, other - Will focus occasionally on examiner but lethargic, delayed reflexes Psychiatric: depressed affect Skin: other - Poor turgor, venous disease Medical Decision Making Diagnostic Impression: Primary Impression: Left lower lobe pneumonia Qualified Codes: J18.1 - Lobar pneumonia, unspecified organism Additional Impressions: Failure to thrive Qualified Codes: R62.7 - Adult failure to thrive Dehydration Prolonged INR Hypothyroidism Qualified Codes: E03.9 - Hypothyroidism, unspecified Hypernatremia History of DVT (deep vein thrombosis) ER Course Patient presents with difficulty swallowing and obvious signs of severe dehydration. Differential includes sepsis, dehydration, hypo-thyroidism, electrolyte imbalance, renal failure, dysphagia amongst others. Evaluation with EKG, chest x-ray and labs. The patient will be treated with aggressive IV hydration. She will need to have swallowing evaluation in the hospital. Of note she is a DNR/DNI patient EKG with atrial fibrillation rate of 111 right bundle branch block left fascicular block nonspecific ST-T wave changes. Chest x-ray with cardiomegaly and left-sided infiltrate. Elevated INR. Hypernatremia. Elevated BUN. Elevated TSH. Elevated BNP. Antibiotics begun for pneumonia. With elevated INR, doubt PE. Also concern for hypothyroidism. Cortisol given. Hypernatremia. Hydrating patient. Patient admitted to the medical floor Dr. Cruz. Laboratory Tests Test 06/18/19 20:25 06/18/19 21:43 White Blood Count 6.2 K/UL (4.8-10.8) Red Blood Count 3.97 M/UL (4.20-5.40) L Hemoglobin 12.0 G/DL (12.0-16.0) Hematocrit 37.4 % (37.0-47.0) Mean Corpuscular Volume 94 FL (80-99) Mean Corpuscular Hemoglobin 30.1 PG (27.0-31.0) Mean Corpuscular Hemoglobin Concent 31.9 G/DL (32.0-36.0) L Red Cell Distribution Width 15.0 % (11.6-14.8) H Platelet Count 147 K/UL (150-450) L Mean Platelet Volume 10.6 FL (6.5-10.1) H Neutrophils (%) (Auto) 67.6 % (45.0-75.0) Lymphocytes (%) (Auto) 25.4 % (20.0-45.0) Monocytes (%) (Auto) 5.4 % (1.0-10.0) Eosinophils (%) (Auto) 0.9 % (0.0-3.0) Basophils (%) (Auto) 0.7 % (0.0-2.0) Prothrombin Time 54.3 SEC (9.30-11.50) H Prothrombin Time INR 5.6 (0.9-1.1) *H PTT 42 SEC (23-33) H Sodium Level 160 MMOL/L (136-145) H Potassium Level 4.7 MMOL/L (3.5-5.1) Chloride Level 127 MMOL/L (98-107) H Carbon Dioxide Level 24 MMOL/L (21-32) Anion Gap 9 mmol/L (5-15) Blood Urea Nitrogen 25 mg/dL (7-18) H Creatinine 0.6 MG/DL (0.55-1.30) Estimate Glomerular Filtration Rate mL/min (>60) Glucose Level 90 MG/DL (74-106) Lactic Acid Level 1.20 mmol/L (0.4-2.0) Calcium Level 8.8 MG/DL (8.5-10.1) Magnesium Level 2.0 MG/DL (1.8-2.4) Total Bilirubin 1.0 MG/DL (0.2-1.0) Aspartate Amino Transferase (AST) 57 U/L (15-37) H Alanine Aminotransferase (ALT) 19 U/L (12-78) Alkaline Phosphatase 88 U/L (46-116) Total Creatine Kinase 94 U/L (26-308) Troponin I 0.012 ng/mL (0.000-0.056) Pro-B-Type Natriuretic Peptide 16334 pg/mL (0-125) H Total Protein 6.4 G/DL (6.4-8.2) Albumin 2.5 G/DL (3.4-5.0) L Globulin 3.9 g/dL Albumin/Globulin Ratio 0.6 (1.0-2.7) L Lipase 410 U/L (73-393) H Thyroid Stimulating Hormone (TSH) 4.653 uiU/mL (0.358-3.740) Urine Color Yellow Urine Appearance Clear Urine pH 5 (4.5-8.0) Urine Specific Stout 1.020 (1.005-1.035) Urine Protein 2+ (NEGATIVE) H Urine Glucose (UA) Negative (NEGATIVE) Urine Ketones Negative (NEGATIVE) Urine Blood Negative (NEGATIVE) Urine Nitrite Negative (NEGATIVE) Urine Bilirubin Negative (NEGATIVE) Urine Urobilinogen 1 MG/DL (0.0-1.0) H Urine Leukocyte Esterase Negative (NEGATIVE) Urine RBC 0-2 /HPF (0 - 2) Urine WBC 2-4 /HPF (0 - 2) Urine Squamous Epithelial Cells Few /LPF (NONE/OCC) Urine Amorphous Sediment Few /LPF (NONE) H Urine Bacteria Few /HPF (NONE) EKG Diagnostic Results Rate: tachycardiac Rhythm: other - Atrial fibrillation ST Segments: other Rhythm Strip Diag. Results EP Interpretation: yes Rhythm: no PVC's, no ectopy, other - A. fib rapid rate Chest X-Ray Diagnostic Results Chest X-Ray Diagnostic Results : Chest X-Ray Ordered: Yes # of Views/Limited/Complete: 1 View Indication: Other EP Interpretation: Yes Interpretation: no pneumothorax, other - Cardiomegaly left infiltrate and left effusion Impression: Other Electronically Signed by: Electronically signed by Juan Ramon Elizondo MD Last Vital Signs Date Time Temp Pulse Resp B/P (MAP) Pulse Ox O2 Delivery O2 Flow Rate FiO2 06/19/19 00:00 96.7 107 20 115/74 (88) 99 06/18/19 23:43 Room Air Status: improved Disposition: ADMITTED INPATIENT Condition: Serious Juan Ramon Elizondo MD Jun 18, 2019 21:02
[2019-06-18 21:27] LABS: BASOPHILS % (AUTO) 0.7 % (0.0-2.0); EOSINOPHILS % (AUTO) 0.9 % (0.0-3.0); HEMATOCRIT 37.4 % (37.0-47.0); LYMPHOCYTES % (AUTO) 25.4 % (20.0-45.0); MEAN CORPUSCULAR VOLUME 94 FL (80-99); MONOCYTES % (AUTO) 5.4 % (1.0-10.0); NEUTROPHILS % (AUTO) 67.6 % (45.0-75.0); PLATELET COUNT 147 K/UL (150-450); RED BLOOD COUNT 3.97 M/UL (4.20-5.40); WHITE BLOOD COUNT 6.2 K/UL (4.8-10.8)
[2019-06-18] MEDS ORDERED: Piperacillin/Tazobactam 3.375 GM in NS 110 ML IVPB ONE (21:30)
[2019-06-18] MEDS ORDERED: Vancomycin 1 GM in NS 275 ML IVPB ONE (21:30)
[2019-06-18 21:52] LABS: INR 5.6 (0.9-1.1)
[2019-06-18 22:15] LABS: ALANINE AMINOTRANSFERASE 19 U/L (12-78); ALBUMIN 2.5 G/DL (3.4-5.0); ALBUMIN/GLOBULIN RATIO 0.6 (1.0-2.7); ALKALINE PHOSPHATASE 88 U/L (46-116); ANION GAP 9 mmol/L (5-15); ASPARTATE AMINO TRANSFERASE 57 U/L (15-37); BLOOD UREA NITROGEN 25 mg/dL (7-18); CALCIUM 8.8 MG/DL (8.5-10.1); CARBON DIOXIDE 24 MMOL/L (21-32); CHLORIDE 127 MMOL/L (98-107); CREATINE KINASE 94 U/L (26-308); CREATININE 0.6 MG/DL (0.55-1.30); POTASSIUM 4.7 MMOL/L (3.5-5.1); SODIUM 160 MMOL/L (136-145)
[2019-06-18] MEDS ORDERED: Hydrocortisone 100mg Inj IV ONE (22:15)
[2019-06-18 22:16] LABS: APPEARANCE,URINE CLEAR; BILIRUBIN, URINE NEGATIVE (NEGATIVE); GLUCOSE, URINE (UA) NEGATIVE (NEGATIVE); KETONES,URINE NEGATIVE (NEGATIVE); LEUKOCYTE ESTERASE ,URINE NEGATIVE (NEGATIVE); NITRITE,URINE NEGATIVE (NEGATIVE); PH,URINE 5 (4.5-8.0); PROTEIN,URINE 2+ (NEGATIVE); UROBILINOGEN,URINE 1 MG/DL (0.0-1.0)
[2019-06-18 22:18] LABS: COLOR,URINE YELLOW
[2019-06-18 22:54] VITALS: BP 110/69
[2019-06-18] MEDS ORDERED: KCL IV SCH (23:30)
[2019-06-18] MEDS ORDERED: Albuterol ud Inhalation HHN PRN (23:30)
[2019-06-18] MEDS ORDERED: [UNRECOGNIZED DRUG - OTHER] IV SCH (23:30)
[2019-06-18] MEDS ORDERED: D5 IV SCH (23:30)
[2019-06-19] VITALS: BP 115/74
[2019-06-19 04:12] VITALS: BP 110/80
[2019-06-19 06:33] LABS: BASOPHILS % (AUTO) 0.4 % (0.0-2.0); EOSINOPHILS % (AUTO) 0.1 % (0.0-3.0); HEMATOCRIT 38.5 % (37.0-47.0); LYMPHOCYTES % (AUTO) 13.6 % (20.0-45.0); MEAN CORPUSCULAR VOLUME 95 FL (80-99); MONOCYTES % (AUTO) 1.4 % (1.0-10.0); NEUTROPHILS % (AUTO) 84.5 % (45.0-75.0); PLATELET COUNT 153 K/UL (150-450); RED BLOOD COUNT 4.07 M/UL (4.20-5.40); RED CELL DISTRIBUTION WIDTH 16.5 % (11.6-14.8); WHITE BLOOD COUNT 6.5 K/UL (4.8-10.8)
[2019-06-19 07:06] LABS: ALANINE AMINOTRANSFERASE 13 U/L (12-78); ALBUMIN 2.5 G/DL (3.4-5.0); ALBUMIN/GLOBULIN RATIO 0.6 (1.0-2.7); ALKALINE PHOSPHATASE 89 U/L (46-116); ANION GAP 11 mmol/L (5-15); ASPARTATE AMINO TRANSFERASE 26 U/L (15-37); BLOOD UREA NITROGEN 22 mg/dL (7-18); CALCIUM 8.3 MG/DL (8.5-10.1); CARBON DIOXIDE 21 MMOL/L (21-32); CHLORIDE 125 MMOL/L (98-107); CREATININE 0.8 MG/DL (0.55-1.30); PHOSPHORUS 2.4 MG/DL (2.5-4.9); POTASSIUM 3.4 MMOL/L (3.5-5.1); SODIUM 157 MMOL/L (136-145)
[2019-06-19 08:00] VITALS: BP 144/65
[2019-06-19] MEDS ORDERED: Cefepime HCl 2 GM in D5W 110 ML IV SCH (09:00)
--- NOTE | 2019-06-19 11:43 | Diagnostic Imaging Report ---
Indication: Dyspnea Comparison: 11/02/2017 A single view chest radiograph was obtained. Findings: There is a left pulmonary infiltrate suspected. There is silhouetting of the left hemidiaphragm and cardiomegaly. Pulmonary vascularity is marginally increased. Aorta is calcified. Bones are osteopenic. IMPRESSION: Left pulmonary infiltrate. Possible left pleural effusion. Query mild pulmonary vascular congestion.
[2019-06-19] MEDS: Heparin 5000 units/ml inj SUBQ SCH ×2 (11:53→21:17)
[2019-06-19 12:00] VITALS: BP 110/70
--- NOTE | 2019-06-19 12:11 | Consultation ---
History of Present Illness General Date patient seen: Jun 19, 2019 Chief Complaint: General Complaint Present Illness HPI 88 year old female with hx of Dementia with behavioral disturbances, Chronic DVT right lower extremity, Hypertension, Mild anemia, Hypothyroidism, detention resident brought in because of not eating. The patient is unable to give any history. S he is a DNR and DNI status. They report that she has difficulty swallowing. She is obtunded and can't give any history. Allergies: Coded Allergies: No Known Allergies (Unverified , 11/26/16) Medication History Scheduled Amino Acids/Protein Hydrolys (Pro-Stat Liquid), 30 ML ORAL TWICE A DAY, ( Reported) Ascorbic Acid* (Vitamin C*), 500 MG ORAL DAILY, (Reported) Dextran 70/Hypromellose (Artificial Tears Eye Drops*), 1 DROP RIGHT EYE FOUR TIMES A DAY, (Reported) Dextran 70/Hypromellose (Artificial Tears Eye Drops*), 1 DROP LEFT EYE BID, ( Reported) Escitalopram Oxalate* (Lexapro*), 5 MG ORAL DAILY, (Reported) Escitalopram Oxalate* (Lexapro*), 5 MG ORAL DAILY, (Reported) Levothyroxine Sodium* (Levothyroxine Sodium*), 50 MCG ORAL DAILY, (Reported) Levothyroxine Sodium* (Synthroid*), 100 MCG ORAL DAILY, (Reported) Nifedipine (Nifedipine*), 30 MG ORAL DAILY, (Reported) Nifedipine Er* (Nifedipine Er*), 30 MG ORAL DAILY, (Reported) Warfarin Sod* (Coumadin*), 3 MG ORAL DAILY, (Reported) Scheduled PRN Acetaminophen (Acetaminophen), 650 MG ORAL Q4HR PRN for Prn Headache/Temp > 101, (Reported) Acetaminophen* (Acetaminophen 325MG Tablet*), 650 MG ORAL Q4H PRN for Mild Pain/ Temp > 100.5, (Reported) Albuterol Sulfate* (Albuterol Sulfate Hhn*), 3 ML INH Q4H PRN for Shortness of Breath, (Reported) Vancomycin Hcl (Vancomycin), 1 GM IV DAILY PRN Miscellaneous Medications Ferrous Sulfate (Ferrous Sulfate), 220 MG PO, (Reported) Patient History Healthcare decision maker Resuscitation status Do Not Resuscitate Advanced Directive on File No Past Medical/Surgical History Past Medical/Surgical History: (1) Cervical arthritis (2) Dementia arising in the senium and presenium (3) History of DVT (deep vein thrombosis) (4) Severe protein-calorie malnutrition (5) Hypothyroidism Review of Systems All Other Systems: negative except mentioned in HPI Physical Exam General Appearance: cachetic, thin Lines, tubes and drains: peripheral HEENT: normocephalic, atraumatic Neck: non-tender, normal alignment Respiratory/Chest: chest wall non-tender, lungs clear Cardiovascular/Chest: normal peripheral pulses, normal rate Abdomen: normal bowel sounds, non tender Genitourinary/Rectal: normal genital exam Skin Exam: normal pigmentation Neurologic: unresponsiveness Musculoskeletal: atrophy Last 24 Hour Vital Signs Date Time Temp Pulse Resp B/P (MAP) Pulse Ox O2 Delivery O2 Flow Rate FiO2 06/19/19 09:00 Room Air 06/19/19 08:52 65 144/65 06/19/19 08:00 101.0 65 15 144/65 (91) 97 06/19/19 04:12 96.9 103 20 110/80 (90) 98 06/19/19 00:00 96.7 107 20 115/74 (88) 99 06/18/19 23:43 Room Air 06/18/19 23:00 98.6 89 18 110/69 97 Room Air 06/18/19 22:54 98.6 89 18 110/69 97 Room Air 06/18/19 21:00 98.6 98 18 105/73 97 Room Air 06/18/19 21:00 98 18 Room Air 06/18/19 20:16 98.6 98 18 105/73 (84) 97 Room Air Intake and Output 06/18/19 06/19/19 19:00 07:00 Intake Total 450 ml Output Total 360 ml Balance 90 ml Intake IV Total 450 ml Output Urine Total 360 ml Laboratory Tests Test 06/18/19 20:25 06/18/19 21:43 06/19/19 05:50 White Blood Count 6.2 K/UL (4.8-10.8) 6.5 K/UL (4.8-10.8) Red Blood Count 3.97 M/UL (4.20-5.40) L 4.07 M/UL (4.20-5.40) L Hemoglobin 12.0 G/DL (12.0-16.0) 12.0 G/DL (12.0-16.0) Hematocrit 37.4 % (37.0-47.0) 38.5 % (37.0-47.0) Mean Corpuscular Volume 94 FL (80-99) 95 FL (80-99) Mean Corpuscular Hemoglobin 30.1 PG (27.0-31.0) 29.6 PG (27.0-31.0) Mean Corpuscular Hemoglobin Concent 31.9 G/DL (32.0-36.0) L 31.3 G/DL (32.0-36.0) L Red Cell Distribution Width 15.0 % (11.6-14.8) H 16.5 % (11.6-14.8) H Platelet Count 147 K/UL (150-450) L 153 K/UL (150-450) Mean Platelet Volume 10.6 FL (6.5-10.1) H 10.1 FL (6.5-10.1) Neutrophils (%) (Auto) 67.6 % (45.0-75.0) 84.5 % (45.0-75.0) H Lymphocytes (%) (Auto) 25.4 % (20.0-45.0) 13.6 % (20.0-45.0) L Monocytes (%) (Auto) 5.4 % (1.0-10.0) 1.4 % (1.0-10.0) Eosinophils (%) (Auto) 0.9 % (0.0-3.0) 0.1 % (0.0-3.0) Basophils (%) (Auto) 0.7 % (0.0-2.0) 0.4 % (0.0-2.0) Prothrombin Time 54.3 SEC (9.30-11.50) H Prothromb Time International Ratio 5.6 (0.9-1.1) *H Activated Partial Thromboplast Time 42 SEC (23-33) H Sodium Level 160 MMOL/L (136-145) H 157 MMOL/L (136-145) H Potassium Level 4.7 MMOL/L (3.5-5.1) 3.4 MMOL/L (3.5-5.1) L Chloride Level 127 MMOL/L (98-107) H 125 MMOL/L (98-107) H Carbon Dioxide Level 24 MMOL/L (21-32) 21 MMOL/L (21-32) Anion Gap 9 mmol/L (5-15) 11 mmol/L (5-15) Blood Urea Nitrogen 25 mg/dL (7-18) H 22 mg/dL (7-18) H Creatinine 0.6 MG/DL (0.55-1.30) 0.8 MG/DL (0.55-1.30) Estimat Glomerular Filtration Rate mL/min (>60) mL/min (>60) Glucose Level 90 MG/DL (74-106) 159 MG/DL (74-106) H Lactic Acid Level 1.20 mmol/L (0.4-2.0) Calcium Level 8.8 MG/DL (8.5-10.1) 8.3 MG/DL (8.5-10.1) L Magnesium Level 2.0 MG/DL (1.8-2.4) 1.8 MG/DL (1.8-2.4) Total Bilirubin 1.0 MG/DL (0.2-1.0) 1.0 MG/DL (0.2-1.0) Aspartate Amino Transf (AST/SGOT) 57 U/L (15-37) H 26 U/L (15-37) Alanine Aminotransferase (ALT/SGPT) 19 U/L (12-78) 13 U/L (12-78) Alkaline Phosphatase 88 U/L (46-116) 89 U/L (46-116) Total Creatine Kinase 94 U/L (26-308) Troponin I 0.012 ng/mL (0.000-0.056) Pro-B-Type Natriuretic Peptide 09070 pg/mL (0-125) H Total Protein 6.4 G/DL (6.4-8.2) 6.5 G/DL (6.4-8.2) Albumin 2.5 G/DL (3.4-5.0) L 2.5 G/DL (3.4-5.0) L Globulin 3.9 g/dL 4.0 g/dL Albumin/Globulin Ratio 0.6 (1.0-2.7) L 0.6 (1.0-2.7) L Lipase 410 U/L (73-393) H Thyroid Stimulating Hormone (TSH) 4.653 uiU/mL (0.358-3.740) Urine Color Yellow Urine Appearance Clear Urine pH 5 (4.5-8.0) Urine Specific [place] 1.020 (1.005-1.035) Urine Protein 2+ (NEGATIVE) H Urine Glucose (UA) Negative (NEGATIVE) Urine Ketones Negative (NEGATIVE) Urine Blood Negative (NEGATIVE) Urine Nitrite Negative (NEGATIVE) Urine Bilirubin Negative (NEGATIVE) Urine Urobilinogen 1 MG/DL (0.0-1.0) H Urine Leukocyte Esterase Negative (NEGATIVE) Urine RBC 0-2 /HPF (0 - 2) Urine WBC 2-4 /HPF (0 - 2) Urine Squamous Epithelial Cells Few /LPF (NONE/OCC) Urine Amorphous Sediment Few /LPF (NONE) H Urine Bacteria Few /HPF (NONE) Phosphorus Level 2.4 MG/DL (2.5-4.9) L Microbiology Date/Time Source Procedure Growth Status 06/18/19 21:30 Rectum Received Height (Feet): 5 Height (Inches): 3.00 Weight (Pounds): 105 Medications Current Medications Medications (Trade) Dose Ordered Sig/Kalen Route PRN Reason Start Time Stop Time Status Last Admin Dose Admin Acetaminophen (Tylenol) 650 mg Q4H PRN ORAL Mild Pain/Temp > 100.5 06/18/19 23:30 07/18/19 23:29 Albuterol Sulfate (Proventil) 2.5 mg Q4H PRN HHN Shortness of Breath 06/18/19 23:30 06/23/19 23:29 Cefepime HCl 2 gm/ Dextrose 110 ml @ 220 mls/hr DAILY IV 06/19/19 09:00 06/26/19 08:59 06/19/19 08:52 Heparin Sodium (Porcine) (Heparin 5000 units/ml) 5,000 units EVERY 12 HOURS SUBQ 06/19/19 11:00 07/19/19 10:59 06/19/19 11:53 Levothyroxine Sodium (Synthroid) 100 mcg DAILY@0630 ORAL 06/19/19 06:30 07/19/19 06:29 06/19/19 05:39 Nifedipine (Procardia XL) 30 mg DAILY ORAL 06/19/19 09:00 07/19/19 08:59 06/19/19 08:52 Sodium Chloride 1,000 ml @ 300 mls/hr Q3H20M IV 06/18/19 20:45 07/18/19 20:44 06/19/19 10:46 Assessment/Plan Problem List: (1) Acute encephalopathy ICD Codes: G93.40 - Encephalopathy, unspecified SNOMED: 5418553 (2) Hypernatremia ICD Codes: E87.0 - Hyperosmolality and hypernatremia SNOMED: 328126569 (3) Severe protein-calorie malnutrition ICD Codes: E43 - Unspecified severe protein-calorie malnutrition SNOMED: 045322459, 919760558, 819994168 (4) Hypothyroidism ICD Codes: E03.9 - Hypothyroidism, unspecified SNOMED: 56043286 Qualifiers: Qualified Codes: E03.9 - Hypothyroidism, unspecified (5) History of DVT (deep vein thrombosis) ICD Codes: Z86.718 - Personal history of other venous thrombosis and embolism SNOMED: 383196025 (6) Dementia arising in the senium and presenium ICD Codes: F03.90 - Unspecified dementia without behavioral disturbance SNOMED: 98304729 Assessment/Plan: it seems that pt was in process of a natural , including eating less and sleeping more. The dying process is interrupted now. I asked social service to find out the responsible alliance party to find out which they way they want to choose. the natural comfortable or prolonged medically delayed . Jessica Amador MD Jun 19, 2019 12:11
[2019-06-19] MEDS ORDERED: Varibar Nectar 240ml MC PRN (14:45)
[2019-06-19] MEDS ORDERED: Varibar Pudding 230ml MC PRN (14:45)
[2019-06-19] MEDS ORDERED: Varibar Honey 250ml MC PRN (14:45)
[2019-06-19 16:00] VITALS: BP 105/70
--- NOTE | 2019-06-19 17:03 | History & Physical ---
History and Physical History & Physicial Dictated for Int Med-DR Cruz no. [id number]. Dean Garnica MD Jun 19, 2019 17:03
[2019-06-19 19:47] VITALS: BP 103/72
--- NOTE | 2019-06-19 23:15 | History and Physical Report ---
DATE OF ADMISSION: 06/18/2019 CHIEF COMPLAINT: The patient is an 88-year-old female, who presents with a chief complaint of difficulty swallowing and decreased oral intake. HISTORY OF PRESENT ILLNESS: The patient is a resident of [facility]. The patient herself is nonverbal. Much of the history and physical is taken from the patient's chart. The patient apparently has had probable swelling for the past 2 or 3 days. The patient also has been unable to eat. The patient was transferred to [facility]. The patient is admitted for dysphagia and anorexia. REVIEW OF SYSTEMS: Unable to assess secondary to the patient's mental status. PAST MEDICAL HISTORY: Significant for, 1. Hypertension. 2. Hypothyroidism. 3. Encephalopathy. 4. Alzheimer's dementia. 5. Dysphagia. 6. Major depression. PAST SURGICAL HISTORY: The patient denies. CURRENT MEDICATIONS: 1. Iron sulfate 220 mg p.o. daily. 2. DuoNeb nebulized q.4 hours p.r.n. 3. Levoxyl 100 mcg p.o. daily. 4. Nifedipine ER 30 mg p.o. daily. 5. Pro-Stat 30 mL p.o. daily. 6. Tylenol 650 mg p.o. q.4 hours p.r.n. 7. Lexapro 5 mg p.o. daily. 8. Coumadin 6 mg p.o. daily. ALLERGIES: No known drug allergies. SOCIAL HISTORY: The patient is single. The patient denies tobacco or alcohol use. PHYSICAL EXAMINATION: VITAL SIGNS: Temperature 96.9, respirations 20, pulse 103, and blood pressure 110/80. GENERAL: The patient is a thin-appearing elderly female, who is nonverbal. HEENT: Eyes, pupils are equal and responsive to light and accommodation. Extraocular movements are intact. NECK: Supple without lymphadenopathy. CHEST: Lungs are clear to auscultation bilaterally without wheezes or rales. CARDIOVASCULAR: Regular rhythm and rate. S1 and S2 are normal without murmurs, rubs, or gallops. ABDOMEN: Soft, nontender, and nondistended. Positive bowel sounds. No evidence of hepatosplenomegaly. Currently, no rebound or guarding noted. EXTREMITIES: Negative for clubbing, cyanosis, or edema. RECTAL/GENITAL: Not performed. NEUROLOGIC: Cranial nerves II through XII are grossly intact without focal deficits. Motor strength is 5/5 bilaterally. Deep tendon reflexes are 2+ plantar. LABORATORY STUDIES: WBC 6.2, hemoglobin 12.2, hematocrit 37.4, and platelets 147,000. Sodium 160, potassium 4.7, chloride 127, CO2 24, BUN 25, creatinine 0.6, and glucose 90. BNP elevated at 34,794. TSH elevated at 4.653. Lipase elevated at 410. Urinalysis showed 2+ protein, 1+ urobilinogen with 2 to 4 wbc's. A chest x-ray revealed pulmonary infiltrate and possible left pleural effusion. ASSESSMENT: This is an 88-year-old female. 1. Dysphagia. 2. Anorexia. 3. Pneumonia of the left lower lobe. 4. Hypernatremia. 5. Congestive heart failure. 6. Hypertension. 7. Hypothyroidism. 8. Encephalopathy. 9. Alzheimer's dementia. 10. Dysphagia. 11. Major depression. TREATMENT: 1. Dysphagia/anorexia. Speech therapy consultation is pending. We will follow recommendations of speech therapy. A Gastroenterology consultation is pending for PEG evaluation. 2. Hypernatremia. The patient is probably dehydrated secondary to decreased oral intake. The patient is currently receiving intravenous fluids. 3. Pneumonia. A Pulmonary consultation has been obtained with Dr. Jessica Amador. The patient is currently receiving intravenous cefepime and vancomycin. We will follow recommendations of Pulmonary. 4. Congestive heart failure. A Cardiology consultation has been obtained with Dr. Arora. Follow recommendations of Cardiology. 5. Hypertension. The patient is currently normotensive. Continue Procardia as above. 6. Hypothyroidism. Continue Synthroid as above. 7. Encephalopathy. 8. Alzheimer's dementia. 9. Major depression. Continue Lexapro as above. Dean Garnica M.D. DR: JESSICA JOB#: [id number] CC:
[2019-06-20] VITALS (7 sets, daily range): BP systolic 99–115; BP diastolic 58–77
[2019-06-20 06:52] LABS: BASOPHILS % (AUTO) 0.4 % (0.0-2.0); EOSINOPHILS % (AUTO) 0.4 % (0.0-3.0); HEMATOCRIT 34.3 % (37.0-47.0); HEMOGLOBIN 10.7 G/DL (12.0-16.0); LYMPHOCYTES % (AUTO) 23.4 % (20.0-45.0); MEAN CORPUSCULAR VOLUME 94 FL (80-99); MONOCYTES % (AUTO) 6.1 % (1.0-10.0); NEUTROPHILS % (AUTO) 69.6 % (45.0-75.0); PLATELET COUNT 129 K/UL (150-450); RED BLOOD COUNT 3.65 M/UL (4.20-5.40); RED CELL DISTRIBUTION WIDTH 16.2 % (11.6-14.8); WHITE BLOOD COUNT 5.5 K/UL (4.8-10.8)
[2019-06-20 07:01] LABS: ANION GAP 10 mmol/L (5-15); BLOOD UREA NITROGEN 19 mg/dL (7-18); CALCIUM 8.1 MG/DL (8.5-10.1); CARBON DIOXIDE 21 MMOL/L (21-32); CHLORIDE 119 MMOL/L (98-107); CREATININE 0.8 MG/DL (0.55-1.30); POTASSIUM 2.8 MMOL/L (3.5-5.1); SODIUM 150 MMOL/L (136-145)
[2019-06-20] MEDS: Heparin 5000 units/ml inj SUBQ SCH ×2 (09:00→20:57)
--- NOTE | 2019-06-20 12:26 | Pulmonology Progress Note ---
Assessment/Plan Problems: (1) Acute encephalopathy (2) Hypernatremia (3) Severe protein-calorie malnutrition (4) Hypothyroidism (5) History of DVT (deep vein thrombosis) (6) Dementia arising in the senium and presenium Assessment/Plan family meeting with both sons they agreed with hospice and end of life care. Subjective ROS Limited/Unobtainable: No Constitutional: Reports: no symptoms HEENT: Repors: no symptoms Allergies: Coded Allergies: No Known Allergies (Unverified , 11/26/16) Objective Last 24 Hour Vital Signs Date Time Temp Pulse Resp B/P (MAP) Pulse Ox O2 Delivery O2 Flow Rate FiO2 06/20/19 09:00 94 104/71 06/20/19 09:00 Room Air 06/20/19 08:00 97.3 94 16 104/71 (82) 98 06/20/19 04:07 98.1 84 16 102/58 (73) 97 06/20/19 00:00 97.2 83 16 99/59 (72) 97 06/19/19 20:09 Room Air 06/19/19 19:47 96.7 90 18 103/72 (82) 94 06/19/19 16:00 98.1 80 20 105/70 (82) 98 Intake and Output 06/19/19 06/20/19 19:00 07:00 Intake Total 218 ml 1300 ml Output Total 250 ml 150 ml Balance -32 ml 1150 ml Intake Oral 118 ml IV Total 100 ml 1300 ml Output Urine Total 250 ml 150 ml General Appearance: WD/WN HEENT: normocephalic, atraumatic Respiratory/Chest: chest wall non-tender, normal breath sounds Breasts: no masses Cardiovascular: normal peripheral pulses Abdomen: normal bowel sounds, soft, non tender Genitourinary: normal external genitalia Extremities: no cyanosis Microbiology Date/Time Source Procedure Growth Status 06/18/19 20:25 Blood Blood Culture - Preliminary NO GROWTH AFTER 24 HOURS Resulted 06/18/19 20:25 Blood Blood Culture - Preliminary Resulted 06/18/19 21:30 Rectum Received Laboratory Tests 06/20/19 06:07: White Blood Count 5.5, Red Blood Count 3.65L, Hemoglobin 10.7L, Hematocrit 34.3L , Mean Corpuscular Volume 94, Mean Corpuscular Hemoglobin 29.3, Mean Corpuscular Hemoglobin Concent 31.2L, Red Cell Distribution Width 16.2H, Platelet Count 129L, Mean Platelet Volume 10.5H, Neutrophils (%) (Auto) 69.6, Lymphocytes (%) (Auto) 23.4, Monocytes (%) (Auto) 6.1, Eosinophils (%) (Auto) 0.4, Basophils (%) (Auto) 0.4, Sodium Level 150H, Potassium Level 2.8L, Chloride Level 119H, Carbon Dioxide Level 21, Anion Gap 10, Blood Urea Nitrogen 19H, Creatinine 0.8, Estimat Glomerular Filtration Rate , Glucose Level 125H, Calcium Level 8.1L Current Medications Medications (Trade) Dose Ordered Sig/Kalen Route PRN Reason Start Time Stop Time Status Last Admin Dose Admin Acetaminophen (Tylenol) 650 mg Q4H PRN ORAL Mild Pain/Temp > 100.5 06/18/19 23:30 07/18/19 23:29 Albuterol Sulfate (Proventil) 2.5 mg Q4H PRN HHN Shortness of Breath 06/18/19 23:30 06/23/19 23:29 Barium Sulfate (Varibar Honey) 250 ml NOW PRN MC RAD 06/19/19 14:45 06/22/19 14:44 Barium Sulfate (Varibar [place]) 240 ml NOW PRN MC RAD 06/19/19 14:45 06/22/19 14:44 Barium Sulfate (Varibar Pudding) 230 ml NOW PRN MC RAD 06/19/19 14:45 06/22/19 14:44 Dextrose 1,000 ml @ 100 mls/hr Q10H IV 06/19/19 12:15 07/19/19 12:14 06/20/19 09:42 Heparin Sodium (Porcine) (Heparin 5000 units/ml) 5,000 units EVERY 12 HOURS SUBQ 06/19/19 11:00 07/19/19 10:59 06/19/19 21:17 Levothyroxine Sodium (Synthroid) 100 mcg DAILY@0630 ORAL 06/19/19 06:30 07/19/19 06:29 06/20/19 05:27 Nifedipine (Procardia XL) 30 mg DAILY ORAL 06/19/19 09:00 07/19/19 08:59 06/19/19 08:52 Jessica Amador MD Jun 20, 2019 12:26
--- NOTE | 2019-06-20 13:16 | Internal Med Progress Note ---
Subjective Date of Service: Jun 20, 2019 Physician Name Dean Garnica Attending Physician Reinier Cruz MD Current Medications Medications (Trade) Dose Ordered Sig/Kalen Route PRN Reason Start Time Stop Time Status Last Admin Dose Admin Acetaminophen (Tylenol) 650 mg Q4H PRN ORAL Mild Pain/Temp > 100.5 06/18/19 23:30 07/18/19 23:29 Albuterol Sulfate (Proventil) 2.5 mg Q4H PRN HHN Shortness of Breath 06/18/19 23:30 06/23/19 23:29 Barium Sulfate (Varibar Honey) 250 ml NOW PRN MC RAD 06/19/19 14:45 06/22/19 14:44 Barium Sulfate (Varibar [place]) 240 ml NOW PRN MC RAD 06/19/19 14:45 06/22/19 14:44 Barium Sulfate (Varibar Pudding) 230 ml NOW PRN MC RAD 06/19/19 14:45 06/22/19 14:44 Dextrose 1,000 ml @ 100 mls/hr Q10H IV 06/19/19 12:15 07/19/19 12:14 06/20/19 09:42 Heparin Sodium (Porcine) (Heparin 5000 units/ml) 5,000 units EVERY 12 HOURS SUBQ 06/19/19 11:00 07/19/19 10:59 06/19/19 21:17 Levothyroxine Sodium (Synthroid) 100 mcg DAILY@0630 ORAL 06/19/19 06:30 07/19/19 06:29 06/20/19 05:27 Nifedipine (Procardia XL) 30 mg DAILY ORAL 06/19/19 09:00 07/19/19 08:59 06/19/19 08:52 Allergies: Coded Allergies: No Known Allergies (Unverified , 11/26/16) ROS Limited/Unobtainable: Yes Subjective 88 YO F admitted with dysphagia. Now pneumonia. Cover for Int Med-Dr Cruz Objective Last Vital Signs Date Time Temp Pulse Resp B/P (MAP) Pulse Ox O2 Delivery O2 Flow Rate FiO2 06/20/19 09:00 94 104/71 06/20/19 09:00 Room Air 06/20/19 08:00 97.3 16 98 Laboratory Tests Test 06/20/19 06:07 White Blood Count 5.5 K/UL (4.8-10.8) Red Blood Count 3.65 M/UL (4.20-5.40) L Hemoglobin 10.7 G/DL (12.0-16.0) L Hematocrit 34.3 % (37.0-47.0) L Mean Corpuscular Volume 94 FL (80-99) Mean Corpuscular Hemoglobin 29.3 PG (27.0-31.0) Mean Corpuscular Hemoglobin Concent 31.2 G/DL (32.0-36.0) L Red Cell Distribution Width 16.2 % (11.6-14.8) H Platelet Count 129 K/UL (150-450) L Mean Platelet Volume 10.5 FL (6.5-10.1) H Neutrophils (%) (Auto) 69.6 % (45.0-75.0) Lymphocytes (%) (Auto) 23.4 % (20.0-45.0) Monocytes (%) (Auto) 6.1 % (1.0-10.0) Eosinophils (%) (Auto) 0.4 % (0.0-3.0) Basophils (%) (Auto) 0.4 % (0.0-2.0) Sodium Level 150 MMOL/L (136-145) H Potassium Level 2.8 MMOL/L (3.5-5.1) L Chloride Level 119 MMOL/L (98-107) H Carbon Dioxide Level 21 MMOL/L (21-32) Anion Gap 10 mmol/L (5-15) Blood Urea Nitrogen 19 mg/dL (7-18) H Creatinine 0.8 MG/DL (0.55-1.30) Estimat Glomerular Filtration Rate mL/min (>60) Glucose Level 125 MG/DL (74-106) H Calcium Level 8.1 MG/DL (8.5-10.1) L Microbiology Date/Time Source Procedure Growth Status 06/18/19 20:25 Blood Blood Culture - Preliminary NO GROWTH AFTER 24 HOURS Resulted 06/18/19 20:25 Blood Blood Culture - Preliminary Resulted 06/18/19 21:30 Rectum Received Intake and Output 06/19/19 06/20/19 19:00 07:00 Intake Total 218 ml 1300 ml Output Total 250 ml 150 ml Balance -32 ml 1150 ml Intake Oral 118 ml IV Total 100 ml 1300 ml Output Urine Total 250 ml 150 ml Objective PHYSICAL EXAMINATION: GENERAL: The patient is a thin-appearing elderly female, who is nonverbal. HEENT: Eyes, pupils are equal and responsive to light and accommodation. Extraocular movements are intact. NECK: Supple without lymphadenopathy. CHEST: Lungs are clear to auscultation bilaterally without wheezes or rales. CARDIOVASCULAR: Regular rhythm and rate. S1 and S2 are normal without murmurs, rubs, or gallops. ABDOMEN: Soft, nontender, and nondistended. Positive bowel sounds. No evidence of hepatosplenomegaly. Currently, no rebound or guarding noted. EXTREMITIES: Negative for clubbing, cyanosis, or edema. RECTAL/GENITAL: Not performed. NEUROLOGIC: Cranial nerves II through XII are grossly intact without focal deficits. Motor strength is 5/5 bilaterally. Deep tendon reflexes are 2+ plantar. Assessment/Plan Assessment/Plan ASSESSMENT: This is an 88-year-old female. 1. Dysphagia. 2. Anorexia. 3. Pneumonia of the left lower lobe. 4. Hypernatremia. 5. Congestive heart failure. 6. Hypertension. 7. Hypothyroidism. 8. Encephalopathy. 9. Alzheimer's dementia. 10. Dysphagia. 11. Major depression. TREATMENT: 1. Dysphagia/anorexia. Speech therapy/swallow eval is pending. We will follow recommendations of speech therapy. A Gastroenterology consultation is pending for PEG evaluation. 2. Hypernatremia/hypokalemia. The patient is probably dehydrated secondary to decreased oral intake. The patient is currently receiving intravenous fluids. 3. Pneumonia. A Pulmonary consultation has been obtained with Dr. Jessica Amador. The patient is currently receiving intravenous cefepime and vancomycin. We will follow recommendations of Pulmonary. 4. Congestive heart failure. A Cardiology consultation has been obtained with Dr. Arora. Follow recommendations of Cardiology. 5. Hypertension. The patient is currently normotensive. Continue Procardia as above. 6. Hypothyroidism. Continue Synthroid as above. 7. Encephalopathy. 8. Alzheimer's dementia. 9. Major depression. Continue Lexapro as above. Dean Garnica MD Jun 20, 2019 13:16
[2019-06-20] MEDS: D5W w/KCl 20mEq 1,000 ML IV SCH ×2 (14:02→21:36)
--- NOTE | 2019-06-20 15:06 | Cardiology Report ---
APPROVED REPORT EKG Measurement Heart [id number] Atrial fibrillation with rapid ventricular response Right bundle branch block Left anterior fascicular block Bifascicular block Septal infarct, age undetermined Abnormal ECG
[2019-06-21 00:08] VITALS: BP 96/47
[2019-06-21 04:00] VITALS: BP 101/63
[2019-06-21] MEDS: D5W w/KCl 20mEq 1,000 ML IV SCH ×2 (05:48→15:10)
[2019-06-21 06:09] LABS: BASOPHILS % (AUTO) 0.6 % (0.0-2.0); HEMATOCRIT 34.8 % (37.0-47.0); HEMOGLOBIN 11.1 G/DL (12.0-16.0); LYMPHOCYTES % (AUTO) 35.9 % (20.0-45.0); MEAN CORPUSCULAR VOLUME 93 FL (80-99); MONOCYTES % (AUTO) 5.6 % (1.0-10.0); NEUTROPHILS % (AUTO) 55.9 % (45.0-75.0); PLATELET COUNT 147 K/UL (150-450); RED BLOOD COUNT 3.72 M/UL (4.20-5.40); RED CELL DISTRIBUTION WIDTH 16.3 % (11.6-14.8); WHITE BLOOD COUNT 6.7 K/UL (4.8-10.8)
[2019-06-21 06:39] LABS: ANION GAP 10 mmol/L (5-15); BLOOD UREA NITROGEN 17 mg/dL (7-18); CALCIUM 8.5 MG/DL (8.5-10.1); CARBON DIOXIDE 19 MMOL/L (21-32); CHLORIDE 115 MMOL/L (98-107); CREATININE 0.8 MG/DL (0.55-1.30); POTASSIUM 3.8 MMOL/L (3.5-5.1); SODIUM 144 MMOL/L (136-145)
[2019-06-21 08:00] VITALS: BP 88/57
[2019-06-21] MEDS: Heparin 5000 units/ml inj SUBQ SCH (09:00)
[2019-06-21] MEDS ORDERED: NIFEdipine 10mg cap ORAL SCH (11:00)
--- NOTE | 2019-06-21 11:53 | Pulmonology Progress Note ---
Assessment/Plan Problems: (1) Acute encephalopathy (2) Hypernatremia (3) Severe protein-calorie malnutrition (4) Hypothyroidism (5) History of DVT (deep vein thrombosis) (6) Dementia arising in the senium and presenium Assessment/Plan family meeting with both sons they agreed with hospice and end of life care. dc to long term today under hospice care Subjective Interval Events: awake, comfortable Allergies: Coded Allergies: No Known Allergies (Unverified , 11/26/16) Objective Last 24 Hour Vital Signs Date Time Temp Pulse Resp B/P (MAP) Pulse Ox O2 Delivery O2 Flow Rate FiO2 06/21/19 11:26 105 88/57 06/21/19 09:30 105 88/57 06/21/19 09:00 Room Air 06/21/19 08:15 105 20 97 Room Air 21 06/21/19 08:00 97.4 109 21 88/57 (67) 96 06/21/19 04:00 97.4 89 16 101/63 (76) 98 06/21/19 00:08 96.7 60 18 96/47 (63) 98 06/20/19 21:36 130 108/77 06/20/19 21:00 Room Air 06/20/19 20:10 130 06/20/19 20:00 98.4 118 18 108/77 (87) 98 06/20/19 16:00 97.5 87 20 108/71 (83) 97 06/20/19 12:00 97.5 71 20 115/67 (83) 97 Intake and Output 06/20/19 06/21/19 19:00 07:00 Intake Total 900 ml 1000 ml Output Total 200 ml 200 ml Balance 700 ml 800 ml IV Total 900 ml 1000 ml Output Urine Total 200 ml 200 ml # Voids 2 General Appearance: WD/WN HEENT: normocephalic, atraumatic Respiratory/Chest: chest wall non-tender, lungs clear Breasts: no masses Cardiovascular: normal peripheral pulses, normal rate Abdomen: normal bowel sounds, soft, non tender Genitourinary: normal external genitalia Extremities: no clubbing Microbiology Date/Time Source Procedure Growth Status 06/18/19 20:25 Blood Blood Culture - Preliminary NO GROWTH AFTER 48 HOURS Resulted 06/18/19 20:25 Blood Blood Culture - Preliminary Staphylococcus Sp Coag Neg Resulted 06/18/19 21:30 Nasal Nares MRSA Culture - Final Staphylococcus Aureus - Mrsa Complete 06/18/19 21:30 Rectum VRE Culture - Final 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 Complete Laboratory Tests 06/21/19 04:28: White Blood Count 6.7, Red Blood Count 3.72L, Hemoglobin 11.1L, Hematocrit 34.8L , Mean Corpuscular Volume 93, Mean Corpuscular Hemoglobin 29.8, Mean Corpuscular Hemoglobin Concent 31.9L, Red Cell Distribution Width 16.3H, Platelet Count 147L, Mean Platelet Volume 11.2H, Neutrophils (%) (Auto) 55.9, Lymphocytes (%) (Auto) 35.9, Monocytes (%) (Auto) 5.6, Eosinophils (%) (Auto) 2.0, Basophils (%) (Auto) 0.6, Sodium Level 144, Potassium Level 3.8, Chloride Level 115H, Carbon Dioxide Level 19L, Anion Gap 10, Blood Urea Nitrogen 17, Creatinine 0.8, Estimat Glomerular Filtration Rate , Glucose Level 95, Calcium Level 8.5 Current Medications Medications (Trade) Dose Ordered Sig/[place] Route PRN Reason Start Time Stop Time Status Last Admin Dose Admin Acetaminophen (Tylenol) 650 mg Q4H PRN ORAL Mild Pain/Temp > 100.5 06/18/19 23:30 07/18/19 23:29 Albuterol Sulfate (Proventil) 2.5 mg Q4H PRN HHN Shortness of Breath 06/18/19 23:30 06/23/19 23:29 Barium Sulfate (Varibar Honey) 250 ml NOW PRN MC RAD 06/19/19 14:45 06/22/19 14:44 Barium Sulfate (Varibar Murphy) 240 ml NOW PRN MC RAD 06/19/19 14:45 06/22/19 14:44 Barium Sulfate (Varibar Pudding) 230 ml NOW PRN MC RAD 06/19/19 14:45 06/22/19 14:44 Dextrose/ Electrolytes 1,000 ml @ 100 mls/hr Q10H IV 06/20/19 14:30 07/20/19 14:29 06/21/19 05:48 Heparin Sodium (Porcine) (Heparin 5000 units/ml) 5,000 units EVERY 12 HOURS SUBQ 06/19/19 11:00 07/19/19 10:59 06/19/19 21:17 Levothyroxine Sodium (Synthroid) 100 mcg DAILY@0630 ORAL 06/19/19 06:30 07/19/19 06:29 06/21/19 05:48 Nifedipine (Adalat) 60 mg Q12HR ORAL 06/21/19 11:00 07/21/19 10:59 06/21/19 11:26 Jessica Amador MD Jun 21, 2019 11:53
[2019-06-21 12:00] VITALS: BP 94/57
[2019-06-21 16:00] VITALS: BP 89/56
--- NOTE | 2019-06-22 10:42 | Discharge Summary ---
Discharge Summary Discharge Summary _ DATE OF ADMISSION: 06/18/2019 DATE OF DISCHARGE: 06/21/2019 DISCHARGED BY: REASON FOR ADMISSION: 88 years old female with past medical history of osteomyelitis right great toe, chronic DVT right lower extremity, hypertension, dementia, hypothyroidism, with DNR/DNI status, presented from the detention facility due to difficulty swallowing . Upon evaluation vital signs were stable. Laboratory work-up revealed no leukocytosis, stable hemoglobin and hematocrit. Sodium 160, chloride 127. AST 57 , ALT 19 . TSH 4.653 . BUN 25, creatinine 0.6 . Glucose 90. Lactic acid 1.2. Urinalysis revealed +2 protein, borderline pyuria, few bacteria. Chest x-ray revealed left pulmonary infiltrate , possible left pleural effusion .\ In the emergency department patient pancultured , started on empiric antibiotic and IV fluids. Patient subsequently admitted to medical surgical floor . CONSULTANTS: motor tune up specialist Dr. Amador [facility] COURSE: Patient admitted to medical surgical floor and started on gentle IV hydration and empiric antibiotic. No fever , no leukocytosis. Supplemental oxygen provided as needed to keep pulse oximetry above 92% . Bronchodilator therapy provided as needed. Bedside swallow evaluation revealed high silent aspiration risk due to dementia and significant persistent dysphagia. Speech therapist recommended for quality of life and given DNR/DNI status and advanced dementia diet for quality of life. Diet texture downgraded as per speech therapist recommendations for quality of life with strict aspiration /reflux precautions. Blood pressure was managed with calcium channel [place] . DVT prophylaxis provided. Synthroid dose was increased. With IV hydration sodium from 160 down to 144. Potassium and phosphorus were replaced. receiving specialist met with both patient's sons, who agreed with the end-of-life care and hospice services. [facility] to [facility] care. FINAL DIAGNOSES: Pneumonia Hypernatremia Dysphagia Severe protein calorie malnutrition Hypertension Hypothyroidism Acute encephalopathy on severe Alzheimer dementia Hypothyroidism History of DVT DISCHARGE MEDICATIONS: See Medication Reconciliation list. DISCHARGE INSTRUCTIONS: Patient was discharged to the detention facility under hospice services. I have been assigned to dictate discharge summary for this account. I was not involved in the patient's management. Amy George NP Jun 22, 2019 10:42
== END 2019-06-21 18:22 | disposition hospice, inpatient (51) | DRG 139 ==
LOC: EDBD 20:08 → EMR 20:44 → EDBEDREQ 20:45 → 4E 22:00 → EDBEDREQ 22:46
DX: J18.9 Pneumonia, unspecified organism (principal); E43 Unspecified severe protein-calorie malnutrition; Z68.1 Body mass index [BMI] 19.9 or less, adult; E87.0 Hyperosmolality and hypernatremia; F03.91 Unspecified dementia, unspecified severity, with behavioral disturbance; I82.591 Chronic embolism and thrombosis of other specified deep vein of right lower extremity; G93.40 Encephalopathy, unspecified; G30.9 Alzheimer's disease, unspecified; F02.80 Dementia in other diseases classified elsewhere, unspecified severity, without behavioral disturbance, psychotic disturbance, mood disturbance, and anxiety; E03.9 Hypothyroidism, unspecified; Z79.01 Long term (current) use of anticoagulants; R13.10 Dysphagia, unspecified; R63.0 Anorexia; I11.0 Hypertensive heart disease with heart failure; I50.9 Heart failure, unspecified; F32.9 Major depressive disorder, single episode, unspecified; Z66 Do not resuscitate
CPT/HCPCS: 36415; 71045; 80048; 80053; 81003; 82550; 83605; 83690; 83735; 83880; 84100; 84443; 84484; 85025; 85610; 85730; 87040; 87081; 87181; 93005; 94664; 96361; 96365; 96375; 99285; J8499